=== PATIENT | female | born 1950 | race Caucasian/White ===

== ENCOUNTER 2017-09-15 13:17 | Inpatient (IN) | payer MEDICARE, MEDICAID ==
--- NOTE | 2017-09-15 13:34 | ED Physician Chart ---
ED Chief Complaint/HPI - Patient Information Date Seen:: 09/15/17 Time Seen:: 13:25 Chief Complaint:: aggressive behavior History of Present Illness:: Patient was apparently yelling and screaming at her halfway facility. Allergies:: Allergies Allergy/AdvReac Type Severity Reaction Status Date / Time No Known Allergies Allergy Verified 07/16/16 19:21 Historian:: Patient, EMS Review:: Transfer documents Reviewed ED Review of Systems - Review of Systems General/Constitutional: No fever, No chills, No weight loss, No weakness, No diaphoresis, No edema, No loss of appetite Skin: No skin lesions, No rash, No bruising Head: No headache, No light-headedness Eyes: No loss of vision, No pain, No diplopia ENT: No earache, No nasal drainage, No sore throat, No tinnitus Neck: No neck pain, No swelling, No thyromegaly, No stiffness, No mass noted Cardio Vascular: No chest pain, No palpitations, No PND, No orthopnea, No edema Pulmonary: No SOB, No cough, No sputum, No wheezing GI: No nausea, No vomiting, No diarrhea, No pain, No melena, No hematochezia, No constipation, No hematemesis G/U: No dysuria, No frequency, No hematuria Musculoskeletal: No bone or joint pain, No back pain, No muscle pain Endocrine: No polyuria, No polydipsia Psychiatric: Prior psych history Hematopoietic: No bruising, No lymphadenopathy Allergic/Immuno: No urticaria, No angioedema Neurological: No syncope, No focal symptoms, No weakness, No paresthesia, No headache, No seizure, No dizziness, No confusion, No vertigo ED Past Medical History - Past Medical History Past Medical History: HTN, CAD, Asthma/COPD, Other (status post urinary tract infection) Family History: Other (not available) Social History: Smoker, Care Facility Surgical History: other (Bypass) Psychiatricy History: Schizophrenia Medication: Reviewed Family Medical History - Family Member Mother History Unknown: Yes Ethnicity: Non- Living Status: Hx Family Cancer: No Hx Family Coronary Artery Disease: No Hx Family Congestive Heart Failure: No Hx Family Hypertension: No Hx Family Stroke: No Hx Family Diabetes: No Hx Family Seizures: No Hx Family Dementia: No Hx Family AIDS: No Hx Family HIV: No Hx Family COPD: No Hx Family Hepatitis: No Hx Family Psychiatric Problems: No Hx Family Tuberculosis: No ED Physical Exam - Physical Examination General/Constitutional: Awake, Well-developed, well-nourished, Alert, No distress Other Gen/Cons comments:: Patient declines to provide a history that allows a basic physical examination Head: Atraumatic Eyes: Lids, conjuctiva normal Skin: Nl inspection ENMT: External ears, nose nl Other ENMT comments:: Edentulous Neck: No nuchal rigidity Respiratory: Nl effort/Exclusion Other Respiratory comments:: diffuse inspiratory and expiratory wheezing and harsh breath sounds Cardio Vascular: RRR, No murmur, gallop, rubs Other Cardio Vascular comments:: 2/6 systolic murmur GI: No tenderness/rebounding/guarding Extremities: Normal digits & nails Neuro/Psych: No focal deficits Misc: Normal back ED Assessment - Assessment General Assessment: Patient refuses laboratory tests and EKG. Auscultation of the chest revealed diffuse harsh breath sounds and inspiratory and expiratory wheezing so the patient definitely has COPD and admits to being a current smoker. Patient does not appear acutely short of breath and her pulse ox is 98% so I will give her a medical clearance to go to [facility]. ED Septic Shock - . Is Septic Shock (SBP<90, OR Lactate>4 mmol\L) present?: No ED Reassessment (Disposition) - Reassessment Reassessment Condition:: Unchanged - Diagnosis Diagnosis:: Aggressive behavior; schizophrenia; nicotine abuse; COPD - Patient Disposition Admitted to:: [facility] Admitting Medical Physician:: Kofi Ryan Admitting Psych Physician:: Brenda Mejía
[2017-09-15 16:49] VITALS: BP 148/99
[2017-09-15] MEDS ORDERED: Maalox 30 mL Cup PO PRN (16:53)
[2017-09-15] MEDS ORDERED: Magnesium Hydroxide (MOM) 30 mL UDC PO PRN (16:53)
--- NOTE | 2017-09-16 02:55 | Psychosocial Evaluation ---
DATE OF SERVICE: 09/15/2017 IDENTIFYING DATA: The patient is a 67-year-old woman, resident of [facility]. Information is obtained by directly interviewing the patient as well as reviewing the admission papers. JUSTIFICATION FOR HOSPITALIZATION: The patient is admitted here because of her acute agitation. CHIEF COMPLAINT: "I do not want to be bothered." HISTORY OF PRESENT ILLNESS: This is the second psychiatric hospitalization for this patient, who is reported to have been here in the past in 2017. The patient is being followed up by Dr. Mejía on an outpatient basis. On the day of the hospitalization, the patient is reported to have been very aggressive and combative towards the staff and the patient could not be redirected. The patient was treated in the past for depression and the patient has been getting easily frustrated. Sleep is noted to be poor. Appetite is noted to be fair. MEDICAL HISTORY: Physical examination is requested to be done by Dr. Ryan. SUBSTANCE ABUSE HISTORY: None. SOCIAL HISTORY: The patient is a resident of [facility]. MENTAL STATUS EXAMINATION: The patient is a 67-year-old woman, looking her stated age, superficially cooperative. Eye contact is poor. Mood is noted to be irritable. Affect is constricted. Insight and judgment at this time are noted to be impaired. Impulse control is noted to be poor. The patient is screaming and yelling and stating that she does not want to be bothered. Review of the chart indicated that the patient has been treated for depression in the past, but at this time, the patient has been on benztropine and olanzapine. The olanzapine, she has been getting at 2.5 mg and benztropine 0.5 mg on a p.r.n. basis and the patient at this time also has been getting Haldol Decanoate on a monthly basis. At this time, the patient has been getting easily upset and has been not able to contract for safety. I am not able to get much information from this patient at this time. Mental status examination is significant for the patient being very irritable, angry and paranoid. The patient's coping skills are noted to be extremely poor. 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 The patient's insight and judgment are noted to be very much impaired. The patient is getting easily upset. Coping skills are noted to be very poor. DIAGNOSTIC IMPRESSION: AXIS I: Psychosis, not otherwise specified. AXIS II: None. AXIS III: As per Dr. Ryan. IMMEDIATE TREATMENT PLAN: The patient is going to be observed on the inpatient unit, provided with supportive psychotherapy. Once stabilized, the patient is going to be discharged to be followed up at [facility] by Dr. Mejía. ESTIMATED LENGTH OF STAY: 5-7 days. DISCHARGE CRITERIA: When the patient is no longer a threat to self or others and be able to cope up with the stress. JOB# [id number]
--- NOTE | 2017-09-16 08:19 | Diagnostic Imaging Report ---
CHEST X-RAY: AP view INDICATION: pain COMPARISON: 07/16/2016 FINDINGS: Mild chronic lung changes are noted.: There is no focal consolidation or pleural effusions The heart is normal in size. Postsurgical changes of the lower thoracic spine are partially visualized. Mildly tortuous aorta is noted. IMPRESSION: Mild chronic interstitial lung changes. No focal consolidation identified.
[2017-09-16] MEDS: Multivitamin Tab PO SCH (08:57)
[2017-09-16] MEDS: Guaifenesin DM 10 ML UDC PO PRN (15:27)
[2017-09-16] MEDS: Pantoprazole 40 mg EC Tab PO SCH (16:35)
[2017-09-16] MEDS ORDERED: Albuterol/Ipratropium Neb 3 ML AERS HHN SCH (19:00)
--- NOTE | 2017-09-16 22:56 | Consultation ---
DATE OF CONSULTATION: 09/16/2017 REFERRING PHYSICIAN: Autumn Nichols MD TYPE OF CONSULTATION: Psychology. HISTORY OF PRESENT ILLNESS: The patient is a 67-year-old female. The patient is a resident of [facility]. The following is by review of the medical record and by the patient's self-report. The patient is being admitted due to acute agitation. According to the staff at the patient's facility, the patient had been very aggressive and combative towards staff and unable to be redirected. Upon interview, the patient is easily frustrated and stating that she does not want to be bothered. The patient denied any suicidal ideation, plan or intention. PAST MEDICAL HISTORY: Please see history and physical by Dr. Ryan. PAST PSYCHIATRIC HISTORY: Records unavailable at the time of the clinical interview. SUBSTANCE ABUSE HISTORY: The patient denied any history. PSYCHOSOCIAL HISTORY: The patient is a resident of [facility]. The patient did not answer questions about occupational or educational history or confucianist affiliation. The patient denied any history of physical or sexual abuse. The patient states no current legal problems. MENTAL STATUS EXAMINATION: The patient appears to be her stated age. The patient's attitude is superficially cooperative. Eye contact is poor. Speech is spontaneous. Mood is irritable. Affect is constricted. Thought process shows to be confused. The patient denied any suicidal ideation, plan or intention. The patient denies any auditory or visual hallucinations. However, there is some evidence of paranoid ideation. The patient's behavior has been difficult to contain on the unit. During the clinical interview, the patient would have yelling episodes. The patient did not participate in the memory assessment. Impulse control is inadequate. Concentration is poor. Sensorium is alert and oriented to self and place. The patient did not participate in the interpretation of proverbs. Insight is poor. Judgment is poor. DIAGNOSTIC IMPRESSION: AXIS I: Psychosis, not otherwise specified. AXIS II: Deferred. AXIS III: Per Dr. Ryan. TREATMENT PLAN: The patient has been seen by Dr. Nichols for psychiatric evaluation and for the management of the patient's psychotropic medications. We will provide supportive psychotherapy to include reality orientation, reality differentiation and reality integration. We will provide de-escalation as well as limit setting. We will encourage the patient to be able to demonstrate emotional and self-regulation prior to discharge. We will provide coping strategies for phase of life issues. We will continue to evaluate the patient for possible depression since this is part of her medical history. Currently, the patient is denying that she is depressed. The patient is unable to verbally contract for safety. Therefore, we will provide a daily opportunity for the patient to do so. Thank you, Dr. Nichols for this consult and the opportunity to participate in this patient's care. JOB# [id number] MTDD
--- NOTE | 2017-09-17 02:31 | Consultation ---
DATE OF CONSULTATION: 09/15/2017 INTERNAL MEDICINE CONSULTATION HISTORY OF PRESENT ILLNESS: The patient is a patient of mine with past medical history significant for spinal stenosis, coronary artery disease, COPD, peptic ulcer disease, gastritis, arthritis, osteoporosis, and Parkinson's disease. SOCIAL HISTORY: Prior history of smoking. No history of drug or alcohol abuse. FAMILY HISTORY: Not available. REVIEW OF SYSTEMS: The patient has chronic cough, occasional wheezing, no nausea, no vomiting, occasional abdominal pain. Extensive arthritic pain, especially lower extremity pain. The patient has resting tremors on exam. OBSTETRIC HISTORY: P0 +0, menses postmenopausal. PHYSICAL EXAMINATION: GENERAL: Average female, in no obvious respiratory distress. VITAL SIGNS: Include a blood pressure of , heart rate , respiration rate of 18. SKIN: Show no obvious cellulitis. HEENT: Normal conjunctivae. NECK: Supple. LUNGS: Show occasional rhonchi, occasional crepitation, no bronchial breathing. HEART: First and second heart sounds normal. No gallop. Systolic present ABDOMEN: Soft, minimal epigastric tenderness. Bowel sounds are good. EXTREMITIES: Show arthritis. NEUROLOGIC: The patient has resting tremor. MEDICAL DIAGNOSES: As I dictated above spinal stenosis, coronary artery disease, chronic obstructive pulmonary disease, peptic ulcer disease, gastritis, arthritis, osteoporosis and Parkinson's disease. Medicines are as per MAY. JOB# [id number]
--- NOTE | 2017-09-17 04:37 | Progress Notes ---
DATE: 09/16/2017 PSYCHIATRIC PROGRESS NOTE SUBJECTIVE: Staff was spoken to. The patient is interviewed. Mood is noted to be irritable. Affect is constricted. Insight and judgment at this time are noted to be be still impaired. Impulse control seems to be poor. The patient is isolative and withdrawn. The patient has ____ hallucinations. The patient is currently on Zyprexa 2.5 mg at bedtime and has been able to tolerate the medication. ASSESSMENT: The patient is still psychotic ____ JOB# [id number]
[2017-09-17] MEDS: Pantoprazole 40 mg EC Tab PO SCH (06:35)
[2017-09-17] MEDS: Albuterol/Ipratropium Neb 3 ML AERS HHN PRN ×2 (06:45→10:24)
[2017-09-17] MEDS: Multivitamin Tab PO SCH (08:57)
[2017-09-17] MEDS: Guaifenesin DM 10 ML UDC PO PRN ×2 (08:57→15:11)
--- NOTE | 2017-09-17 10:05 | Progress Notes ---
DATE: 09/17/2017 SUBJECTIVE: Staff was spoken to. The patient is interviewed. Mood is noted to be anxious. The patient is pacing on the unit. The patient is stating that she has been having depression towards the end of the day and the patient has Parkinson's disease more than anything else and the patient also has been displaying signs of tardive dyskinesia in the oral region. The patient is stating that towards the end of the day, she has been feeling depressed. Paranoia is noted, but the patient is stating ____. The patient is also mentioning that she has been getting the Haldol Decanoate on a monthly basis. The [facility] is going to be [facility], then the last dose of the medication was given. ASSESSMENT: The patient is still paranoid. PLAN: To continue the patient with the supportive therapy and encouraged the patient to oblige the concerns and not to act out. JOB# [id number]
[2017-09-17] MEDS ORDERED: Albuterol/Ipratropium Neb 3 ML AERS HHN PRN (10:49)
[2017-09-17] MEDS: Albuterol/Ipratropium Neb 3 ML AERS HHN SCH ×2 (14:28→19:40)
--- NOTE | 2017-09-18 05:29 | Progress Notes ---
DATE: 09/17/2017 INTERNAL MEDICINE CONSULTATION FOLLOWUP SUBJECTIVE: The patient is seen in Geropsych Unit. No new symptoms. The patient continues to have a chronic pain. Resting tremors, occasional shortness of breath, occasional cough, no nausea, no vomiting. OBJECTIVE: VITAL SIGNS: Stable. LUNGS: Show occasional rhonchi, occasional crepitation, no bronchial breathing. HEART: First and second heart sounds are present. ABDOMEN: Soft. Bowel sounds are good. EXTREMITIES: Show arthritis. ASSESSMENT: The patient has resting tremors. MEDICAL DIAGNOSES: Remain the same; spinal stenosis, Parkinson disease, Chronic obstructive pulmonary disease, coronary artery disease, peptic ulcer disease, arthritis, osteoporosis. Continue the current treatment. Psych consultation reviewed. JOB# [id number]
[2017-09-18] MEDS: Pantoprazole 40 mg EC Tab PO SCH (06:30)
[2017-09-18] MEDS: Albuterol/Ipratropium Neb 3 ML AERS HHN SCH ×4 (06:30→19:37)
[2017-09-18] MEDS: Multivitamin Tab PO SCH (08:06)
[2017-09-18] MEDS: Guaifenesin DM 10 ML UDC PO PRN ×2 (11:30→17:13)
--- NOTE | 2017-09-18 19:25 | Progress Notes ---
DATE: 09/18/2017 SUBJECTIVE: Staff was spoken to. The patient is interviewed. Mood is noted to be irritable. Affect is constricted. The patient is very demanding. The patient is stating that she needs Prozac. The patient is currently on olanzapine 2.5 mg at bedtime. The patient is also reported to have been getting the Haldol on a monthly basis. The patient's insight and judgment at this time are noted to be still impaired. No side effects to the medications are noted. The patient has been stating that she is doing okay in the morning, but towards the evening she has been getting the depression. Coping skills are noted to be poor at this time. Sleep and appetite are noted to be improving. No side effects to the medications are noted. ASSESSMENT: The patient is still impulsive and depressed and psychotic. PLAN: To continue the patient with the supportive therapy. I encouraged the patient to verbalize the concerns rather than to act out. [facility]# [id number]
--- NOTE | 2017-09-18 23:55 | Progress Notes ---
DATE: 09/18/2017 INTERNAL MEDICINE FOLLOWUP CONSULTATION CHIEF COMPLAINT: Chronic pain, shortness of breath, minimal occasional cough, no nausea, no vomiting. The patient continues to be very anxious. PHYSICAL EXAMINATION: GENERAL: Average female in obvious respiratory distress. VITAL SIGNS: Blood pressure of 110/70, heart rate 83, respiration rate 18. SKIN: Show no cellulitis. HEENT: Normal conjunctivae. NECK: Supple. LUNGS: Show occasional rhonchi, occasional crepitation, no bronchial breathing. HEART: First and second present. ABDOMEN: Soft, minimal epigastric tenderness. Bowel sounds are good. EXTREMITIES: Show arthritis. NEUROLOGIC: The patient has Parkinson disease, advanced psychosis. MEDICAL DIAGNOSES: Remain the same; spinal stenosis, Parkinson disease, chronic obstructive pulmonary disease, coronary artery disease, peptic ulcer disease, gastritis, arthritis, osteoporosis. TREATMENT PLAN: Continue current medicines as per MAY. Continue her psych medicines. JOB# [id number]
[2017-09-19] MEDS: Albuterol/Ipratropium Neb 3 ML AERS HHN SCH ×4 (06:29→18:56)
[2017-09-19] MEDS: Pantoprazole 40 mg EC Tab PO SCH (06:42)
[2017-09-19] MEDS: Guaifenesin DM 10 ML UDC PO PRN (08:41)
[2017-09-19] MEDS: Multivitamin Tab PO SCH (08:41)
--- NOTE | 2017-09-20 00:09 | Progress Notes ---
DATE: 09/19/2017 INTERNAL MEDICINE FOLLOWUP CONSULTATION The patient is a 67-year-old female seen at [facility]. Chronic pain syndrome, no chest pain, occasional cough, no wheezing, chronic shortness of breath, no nausea, no vomiting, no abdominal pain. PHYSICAL EXAMINATION: VITAL SIGNS: Stable. LUNGS: Show occasional rhonchi, occasional crepitation, no bronchial breathing. HEART: First and second heart sounds normal. No gallop. S1, S2 are present. ABDOMEN: Soft, minimal epigastric tenderness. Bowel sounds are good. EXTREMITIES: Show arthritis. NEUROLOGIC: The patient has resting tremor and akinesia and rigidity. MEDICAL DIAGNOSES: Include Parkinson's disease, spinal stenosis, chronic obstructive pulmonary disease, coronary artery disease, peptic ulcer disease, , arthritis, osteoporosis. TREATMENT PLAN: Continue current medical management. Psych consult reviewed. JOB# [id number]
[2017-09-20] MEDS: Pantoprazole 40 mg EC Tab PO SCH (06:31)
[2017-09-20] MEDS: Albuterol/Ipratropium Neb 3 ML AERS HHN SCH ×4 (07:21→19:39)
[2017-09-20] MEDS: Multivitamin Tab PO SCH (08:18)
--- NOTE | 2017-09-21 02:17 | Progress Notes ---
DATE: 09/20/2017 INTERNAL MEDICINE CONSULTATION FOLLOWUP The patient is a 67-year-old female seen at [facility]. No new symptoms, chronic pain syndrome. OBJECTIVE: VITAL SIGNS: Stable. LUNGS: Show bilateral rhonchi, has crepitation, no bronchial breathing. HEART: First and second present. ABDOMEN: Soft, minimal epigastric tenderness. Bowel sounds present and good. EXTREMITIES: Show arthritis. NEUROLOGIC: The patient has Parkinson disease. MEDICAL DIAGNOSES: Remain the same; spinal stenosis, Parkinson disease, chronic obstructive pulmonary disease, coronary artery disease, peptic ulcer disease, arthritis, osteoporosis. PLAN: Continue medical management. Psych consult reviewed. Thank you very much. JOB# [id number]
[2017-09-21] MEDS: Pantoprazole 40 mg EC Tab PO SCH (06:36)
[2017-09-21] MEDS: Albuterol/Ipratropium Neb 3 ML AERS HHN SCH ×4 (07:12→20:41)
[2017-09-21] MEDS: Multivitamin Tab PO SCH (09:20)
[2017-09-21] MEDS: Guaifenesin DM 10 ML UDC PO PRN ×2 (11:45→19:20)
--- NOTE | 2017-09-21 23:36 | Progress Notes ---
DATE: 09/21/2017 SUBJECTIVE: Staff was spoken to. The patient is interviewed. Mood is noted to be irritable. Affect is constricted. The patient's coping skills are noted to be poor. The patient is stating that she ____ yesterday. ASSESSMENT: The patient is still paranoid. PLAN: Continue the patient with the supportive therapy and follow up. JOB# [id number]
--- NOTE | 2017-09-22 02:16 | Progress Notes ---
DATE: 09/21/2017 SUBJECTIVE: The patient is a 67-year-old female, no new symptoms. No chest pain. Chronic pain syndrome, occasional cough, and occasional wheezing. No nausea, no vomiting, and no abdominal pain. OBJECTIVE: VITAL SIGNS: Stable. LUNGS: Show occasional rhonchi and occasional crepitation, no bronchial breathing. HEART: First and second present. ABDOMEN: Soft, minimal epigastric tenderness. Bowel sounds are good. EXTREMITIES: Show arthritis. NEUROLOGIC: The patient has no focal motor deficit. ADMITTING DIAGNOSIS: Include: 1. Parkinson's disease. 2. Chronic obstructive pulmonary disease. 3. Coronary artery disease. 4. Spinal stenosis. 5. Peptic ulcer disease. 6. Gastritis. 7. Arthritis. 8. Osteoporosis. TREATMENT PLAN: Continue current medical management. Psych consult reviewed. JOB# [id number]
[2017-09-22] MEDS: Albuterol/Ipratropium Neb 3 ML AERS HHN SCH ×4 (07:10→18:59)
[2017-09-22] MEDS: Multivitamin Tab PO SCH (08:36)
[2017-09-22] MEDS: Pantoprazole 40 mg EC Tab PO SCH (08:43)
--- NOTE | 2017-09-22 19:18 | Progress Notes ---
DATE: 09/22/2017 SUBJECTIVE: Staff was spoken to. The patient is interviewed. Mood is noted to be anxious. The patient's coping skills are noted to be improving at this time. The patient has been given a dose of Haldol Decanoate. The patient is only on 2.5 mg of the Zyprexa and we have been titrating the patient on the Zyprexa down to 2.5 mg, possibly when she is going to be out of the hospital and is at [facility], possibly that medication is going to be tapered off and the patient has to be on 2 antipsychotic medications because of the continuation of the same treatment and we are trying to taper the medication down. The patient is going to be discharged back to [facility] for followup by Dr. Mejía. JOB# [id number]
--- NOTE | 2017-09-22 22:19 | Progress Notes ---
DATE: 09/22/2017 INTERNAL MEDICINE CONSULTATION FOLLOWUP SUBJECTIVE: A 67-year-old female. No chest pain, no shortness of breath, occasional cough, no nausea, no vomiting, chronic pain syndrome. OBJECTIVE: VITAL SIGNS: Stable. LUNGS: Shows occasional rhonchi, occasional crepitation, no bronchial breathing. HEART: First and second present. ABDOMEN: Soft, minimal epigastric tenderness. Bowel sounds are present and good. EXTREMITIES: Show arthritis. NEUROLOGIC: The patient has no focal motor deficits. MEDICAL DIAGNOSES: Include Parkinson's disease, spinal stenosis, chronic obstructive pulmonary disease, coronary artery disease, peptic ulcer disease, gastritis, arthritis, osteoporosis. TREATMENT PLAN: Continue current medical management. Psych consult reviewed. [facility]# [id number]
== END 2017-09-22 20:25 | DRG 885 ==
LOC: ER 13:17 → GERO 15:04 → UNDOADMIN 15:04
DX: F23 Brief psychotic disorder (principal); M48.00 Spinal stenosis, site unspecified; J44.9 Chronic obstructive pulmonary disease, unspecified; G20 Parkinson's disease; M19.90 Unspecified osteoarthritis, unspecified site; M81.0 Age-related osteoporosis without current pathological fracture; K29.70 Gastritis, unspecified, without bleeding; I10 Essential (primary) hypertension; I25.10 Atherosclerotic heart disease of native coronary artery without angina pectoris; F17.210 Nicotine dependence, cigarettes, uncomplicated; K27.9 Peptic ulcer, site unspecified, unspecified as acute or chronic, without hemorrhage or perforation; G89.4 Chronic pain syndrome; Z95.1 Presence of aortocoronary bypass graft
CPT/HCPCS: 71045-TC; 94640; 94760; J1631; Z7610

== ENCOUNTER 2018-04-10 18:28 | Inpatient (IN) | payer MEDICARE, MEDICAID ==
--- NOTE | 2018-04-10 19:21 | ED Physician Chart ---
ED Chief Complaint/HPI - Patient Information Date Seen:: 04/10/18 Time Seen:: 19:16 Chief Complaint:: GEROPSYCH EVALUATION History of Present Illness:: 67 YR OLD FEMALE WITH MULTIPLE MEDICAL PROBLEMS PANCREATITIS DEPRESSION BIPOLAR DISORDER HYPERTENSION ANXIETY FOR GEROPSYCH EVALUATION Allergies:: Allergies Allergy/AdvReac Type Severity Reaction Status Date / Time No Known Allergies Allergy Verified 04/10/18 18:40 Vitals:: Vital Signs - 8 hr 04/10/18 18:41 Temp 100.8 F HR 90 RR 18 BP 139/87 O2 Sat % 95 <Gibson Rose - Last Filed: 04/10/18 19:22> - Patient Information Allergies:: Allergies Allergy/AdvReac Type Severity Reaction Status Date / Time No Known Allergies Allergy Verified 04/10/18 18:40 Vitals:: Vital Signs - 8 hr 04/10/18 18:41 Temp 100.8 F HR 90 RR 18 BP 139/87 O2 Sat % 95 <Fazal Lutz - Last Filed: 04/10/18 20:40> ED Review of Systems - Review of Systems General/Constitutional: No fever Skin: No skin lesions, No rash, No bruising Head: No headache, No light-headedness Eyes: No loss of vision, No pain, No diplopia ENT: No earache, No nasal drainage, No sore throat, No tinnitus Neck: No neck pain, No swelling, No thyromegaly, No stiffness, No mass noted Cardio Vascular: No chest pain, No palpitations, No PND, No orthopnea, No edema Pulmonary: Cough GI: No nausea, No vomiting, No diarrhea, No pain, No melena, No hematochezia, No constipation, No hematemesis G/U: No dysuria, No frequency, No hematuria Musculoskeletal: No bone or joint pain, No back pain, No muscle pain Endocrine: No polyuria, No polydipsia Psychiatric: Anxiety Hematopoietic: No bruising, No lymphadenopathy Allergic/Immuno: No urticaria, No angioedema Neurological: No syncope, No focal symptoms, No weakness, No paresthesia, No headache, No seizure, No dizziness, No confusion, No vertigo <Gibson Rose - Last Filed: 04/10/18 19:22> ED Past Medical History - Past Medical History Past Medical History: Other (PANCREATITIS DEPRESSION BIPOLAR DISORDER HTN ANXIETY) <Gibson Rose - Last Filed: 04/10/18 19:22> Family Medical History - Family Member Mother History Unknown: Yes Ethnicity: Non- Living Status: Hx Family Cancer: No Hx Family Coronary Artery Disease: No Hx Family Congestive Heart Failure: No Hx Family Hypertension: No Hx Family Stroke: No Hx Family Diabetes: No Hx Family Seizures: No Hx Family Dementia: No Hx Family AIDS: No Hx Family HIV: No Hx Family COPD: No Hx Family Hepatitis: No Hx Family Psychiatric Problems: No Hx Family Tuberculosis: No <Gibson Rose Last Filed: 04/10/18 19:22> ED Physical Exam - Physical Examination General/Constitutional: Awake Head: Atraumatic Skin: Nl inspection ENMT: External ears, nose nl Neck: Nontender Respiratory: Nl effort/Exclusion Cardio Vascular: RRR GI: No tenderness/rebounding/guarding : No CVA tenderness Extremities: No tenderness or effusion Neuro/Psych: Alert/oriented <Gibson Rose Filed: 04/10/18 19:22> ED Labs/Radiology/EKG Results - Lab Results Results: Laboratory Tests 04/10/18 04/10/18 04/10/18 19:30 19:30 19:30 WBC RBC Hgb Hct MCV MCH MCHC Differential RDW Plt Count MPV Neutrophils % Lymphocytes % Monocytes % Eosinophils % Basophils % PT 9.7 INR 0.93 PTT (Actin FS) 25.9 L Sodium 134 L Potassium 3.9 Chloride 100 Carbon Dioxide 27.8 Anion Gap 10.1 BUN 21 Creatinine 0.7 Est GFR ( Amer) > 60.0 Est GFR (Non-Af Amer) > 60.0 BUN/Creatinine Ratio 30.0 Glucose 164 H Calcium 9.4 Total Bilirubin 0.2 L AST 13 ALT 9 Alkaline Phosphatase 73 Troponin I 0.02 Total Protein 6.8 Albumin 3.8 Globulin 3.0 Albumin/Globulin Ratio 1.3 04/10/18 19:30 WBC 9.0 RBC 4.71 Hgb 10.6 L Hct 33.4 L MCV 70.9 L MCH 22.6 L MCHC Differential 31.8 RDW 17.9 Plt Count 364 MPV 7.4 Neutrophils % 76.0 Lymphocytes % 13.7 L Monocytes % 6.6 Eosinophils % 3.2 Basophils % 0.5 PT INR PTT (Actin FS) Sodium Potassium Chloride Carbon Dioxide Anion Gap BUN Creatinine Est GFR ( Amer) Est GFR (Non-Af Amer) BUN/Creatinine Ratio Glucose Calcium Total Bilirubin AST ALT Alkaline Phosphatase Troponin I Total Protein Albumin Globulin Albumin/Globulin Ratio <Fazal Lutz - Last Filed: 04/10/18 20:40> ED Assessment - Assessment General Assessment: AGITATION GEROPSYCH EVAL <Gibson Rose - Last Filed: 04/10/18 19:22> ED Septic Shock - . Is Septic Shock (SBP<90, OR Lactate>4 mmol\L) present?: No - <6hrs of presentation: Vital Signs: Vital Signs - 8 hr 04/10/18 18:41 Temp 100.8 F HR 90 RR 18 BP 139/87 O2 Sat % 95 <Gibson Rose - Last Filed: 04/10/18 19:22> - <6hrs of presentation: Vital Signs: Vital Signs - 8 hr 04/10/18 18:41 Temp 100.8 F HR 90 RR 18 BP 139/87 O2 Sat % 95 <Fazal Lutz - Last Filed: 04/10/18 20:40> ED Reassessment (Disposition) - Reassessment Reassessment:: AGITATION GEROPSYCH EVAL - Diagnosis Diagnosis:: AGITATION GEROPSYCH EVAL - Patient Disposition Discharge/Transfer:: Acute Care w/in this hosp Admitted to:: Med/Surg Condition at Disposition:: Stable <Gibson Rose - Last Filed: 04/10/18 19:22> - Reassessment Reassessment Condition:: Improved - Aftercare/Follow up Instructions Notes:: COPD COUGH BRONCHITIS REFUSED BREATHING TX COUGH MEDICINE WITH CODEINE GIVEN AND AZITHROMYCIN ONE GM PO GIVEN. CXR NO PNEUMONIA EKG SHOWED BBB O2 SAT 95 ON ROOM AIR PT APPEARS STABLE FOR TRANSFER <aFzal Lutz - Last Filed: 04/10/18 20:40>
[2018-04-10 19:44] LABS: % BASOPHILS 0.5 % (0.0-2.0); EOSINOPHILE ABSOLUTE 0.3 Th/cmm (0.1-0.4); RED CELL DISTRIBUTION WIDTH 17.9 % (11.5-20.0)
[2018-04-10 19:49] LABS: % EOSINOPHILS 3.2 % (0.0-5.0); % LYMPHOCYTES 13.7 % (20.0-50.0); % MONOCYTES 6.6 % (2.0-10.0); HEMATOCRIT 33.4 % (41.0-60); HEMOGLOBIN 10.6 gm/dL (12-16); LYMPHOCYTE ABSOLUTE 1.2 Th/cmm (1.5-3.0); MEAN CELL VOLUME 70.9 fl (81-100); MEAN CORPUSCULAR HEMOGLOBIN 22.6 pg (27.0-31.0); MEAN CORPUSCULAR HGB CONC 31.8 pg (28.0-36.0); MEAN PLATELET VOLUME 7.4 fl; MONOCYTE ABSOLUTE 0.6 Th/cmm (0.3-1.0); NEUTROPHILE ABSOLUTE 6.9 Th/cmm (1.8-8.0); PLATELET COUNT 364 Th/cmm (150-400); RED BLOOD COUNT 4.71 Mil/cmm (3.80-5.20)
[2018-04-10 19:57] LABS: ALB/GLOB RATIO 1.3 (1.0-1.8); ALBUMIN 3.8 gm/dL (3.7-5.3); ALKALINE PHOSPHATASE 73 U/L (34-104); ANION GAP 10.1 (7.0-16.0); BILIRUBIN,TOTAL 0.2 mg/dL (0.3-1.0); BUN - UREA NITROGEN 21 mg/dL (7-25); CALCIUM SERUM 9.4 mg/dL (8.6-10.3); CARBON DIOXIDE 27.8 mEq/L (21.0-31.0); CHLORIDE 100 mEq/L (98-107); CREATININE - SERUM 0.7 mg/dL (0.6-1.2); GFR AFRICAN-AMERICAN > 60.0 ml/min (>90); GFR NON AFRICAN-AMERICAN > 60.0 ml/min; GLUCOSE 164 mg/dL (70-105); POTASSIUM SERUM 3.9 mEq/L (3.5-5.1); SGOT 13 U/L (13-39); SGPT/ALT 9 U/L (7-52); SODIUM SERUM 134 mEq/L (136-145); TOTAL PROTEIN,SERUM 6.8 gm/dL (6.0-8.3)
[2018-04-10 19:58] LABS: INR 0.93 (0.5-1.4); PROTHROMBIN TIME (TEST) 9.7 SECONDS (9.5-11.5)
[2018-04-10] MEDS ORDERED: Albuterol/Ipratropium Neb 3 ML AERS HHN ONE ×2 (19:59→20:00)
[2018-04-10] MEDS ORDERED: Dexamethasone Sodium Phos 4 mg/mL Vial INH STA (20:01)
[2018-04-10] MEDS ORDERED: Promethazine DM 6.25/15mg-5mL 5 ML SYR PO PRN (20:01)
[2018-04-10] MEDS ORDERED: Codeine/Promethazine Susp 5 mL UDC PO STA (20:19)
[2018-04-10] MEDS ORDERED: Codeine/Promethazine Susp 5 mL UDC ONE (20:22)
[2018-04-10 21:40] VITALS: BP 142/85
[2018-04-10] MEDS ORDERED: Magnesium Hydroxide (MOM) 30 mL UDC PO PRN (21:53)
[2018-04-10] MEDS ORDERED: Maalox 30 mL Cup PO PRN (21:53)
[2018-04-10 23:08] LABS: CHOLESTEROL 140 mg/dL (<200); HDL -HIGH DENSITY LIPOPROTEIN 37 mg/dL (23-92); TRIGLYCERIDES 117 mg/dL (<150)
[2018-04-11] MEDS ORDERED: Maalox 30 mL Cup PO PRN (00:16)
[2018-04-11] MEDS ORDERED: Magnesium Hydroxide (MOM) 30 mL UDC PO PRN (00:24)
[2018-04-11] MEDS: Pantoprazole 40 mg EC Tab PO SCH (06:42)
[2018-04-11] MEDS ORDERED: Pantoprazole 40 mg EC Tab PO SCH (07:30)
[2018-04-11] MEDS ORDERED: Non-Formulary Item 1 EA (Diclofenac Sodium [Voltaren] 100 GM) TP SCH ×2 (09:00)
[2018-04-11] MEDS ORDERED: Benztropine 1 MG TAB PO SCH (09:00)
[2018-04-11] MEDS ORDERED: Albuterol Sulfate ER 4 mg Tab PO SCH ×2 (09:00)
[2018-04-11] MEDS ORDERED: Aspirin 81mg Chewable Tab PO SCH (09:00)
--- NOTE | 2018-04-11 09:14 | Diagnostic Imaging Report ---
CHEST X-RAY: AP view INDICATION: Cough COMPARISON: 09/16/2017 FINDINGS: Slight accentuation of the interstitial lung markings are noted. No focal consolidation or effusion. Heart size normal. Mild tortuous ectatic aorta is noted. Postsurgical changes of the thoracolumbar spine are partially visualized. Degenerative changes of the spine and shoulders are noted. IMPRESSION: [id number] accentuation of the interstitial lung markings, no focal consolidation identified. Mildly tortuous, ectatic aorta. Postsurgical changes of the lower thoracic and visualized upper lumbar spine.
[2018-04-11] MEDS: Albuterol 2 mg/5 mL UDC PO SCH ×4 (10:31→20:55)
[2018-04-11] MEDS: Aspirin 81mg Chewable Tab PO SCH ×2 (10:31→11:30)
[2018-04-11] MEDS: Benztropine 1 MG TAB PO SCH ×2 (10:31→11:30)
[2018-04-12] MEDS: Pantoprazole 40 mg EC Tab PO SCH (06:43)
--- NOTE | 2018-04-12 08:58 | History and Physical ---
History of Present Illness - HPI Chief Complaint: Increased in agitation HPI: Patient was send to ER for evaluation due to increased in agitation. According to information patient was Aggressive, kicking and punching employes. Vital Signs: Last Vital Signs Temp 97.2 F 04/12/18 06:31 Pulse 74 04/12/18 06:31 Resp 20 04/12/18 06:31 BP 116/75 04/12/18 06:31 Pulse Ox 96 04/12/18 06:31 Past Medical History Cardiovascular: Report: CAD, HTN Pulmonary: Report: COPD SIDE BOSS: Report: Dementia GI: Report: Other (Pancreatitis) Psych: Report: Bipolar, Depression, Psychosis Musculoskeletal: Report: No Pertinent Hx Rheumatologic: Report: No pertinent Hx Infectious Disease: Report: No Pertinent Hx Renal/: Report: No Pertinent Hx Endocrine: Report: No Pertinent Hx Dermatology: Report: No Pertinent Hx - Past Surgical History Past Surgical History: No pertinent Hx Family Medical History - Family Member Mother History Unknown: Yes Ethnicity: Non- Living Status: Hx Family Cancer: No Hx Family Coronary Artery Disease: No Hx Family Congestive Heart Failure: No Hx Family Hypertension: No Hx Family Stroke: No Hx Family Diabetes: No Hx Family Seizures: No Hx Family Dementia: No Hx Family AIDS: No Hx Family HIV: No Hx Family COPD: No Hx Family Hepatitis: No Hx Family Psychiatric Problems: No Hx Family Tuberculosis: No Social History Smoke: No Alcohol: None Drugs: None Lives: [facility] Domestic Violence: Negative - Medications Home Medications: Home Medication Medication Instructions Recorded Type Haloperidol Decanoate [Haldol 50 mg IM [id number] 07/16/16 History Decanoate 50] Aspirin [Aspirin Chewable] 81 mg PO DAILY #0 ctb 07/29/16 Rx Cholecalciferol (Vit D3) [Vitamin 1,000 iu PO DAILY #0 tab 07/29/16 Rx D3] FLUoxetine HCL [Prozac*] 20 mg PO DAILY #0 cap 07/29/16 Rx OLANZapine [ZyPREXA] 5 mg PO QPM #0 tab 07/29/16 Rx OLANZapine [ZyPREXA] 2.5 mg PO QPM tab 09/22/17 Rx Pantoprazole [Protonix] 40 mg PO QDAC ect 09/22/17 Rx traZODone HCl [Desyrel*] 50 mg PO HS tab 09/22/17 Rx Albuterol Sulfate ER [Vospire ER*] 2 mg PO QID 04/10/18 History Benztropine [Cogentin*] 1 mg PO DAILY 04/10/18 History Carbidopa/Levodopa [Sinemet 25-100 1 tab PO TID 04/10/18 History mg Tablet] Carvedilol [Coreg] 3.125 mg PO BID 04/10/18 History Diclofenac Sodium [Voltaren] 100 gm TP BID 04/10/18 History Furosemide [Lasix] 20 mg PO DAILY 04/10/18 History Gabapentin [Neurontin*] 300 mg PO Q8H 04/10/18 History Lisinopril [Zestril*] 20 mg PO BID 04/10/18 History Oxybutynin Chloride [Ditropan*] 5 mg PO TID 04/10/18 History Sennosides A and B [Senna] 8.6 mg PO BID 04/10/18 History Simvastatin [Zocor] 40 mg PO HS 04/10/18 History - Allergies Allergies/Adverse Reactions: Allergies Allergy/AdvReac Type Severity Reaction Status Date / Time No Known Allergies Allergy Verified 04/10/18 18:40 Review of Systems - Review of Systems Constitutional: Report: No Significant Eyes: Report: No Significant ENT: Report: No Significant Respiratory: Report: No Significant Cardiovascular: Report: No Significant Gastrointestinal: Report: No Significant Genitourinary: Report: No Significant Musculoskeletal: Report: No Significant Skin: Report: No Significant Neurological: Report: Weakness, Other (Agitation) Physical Exam - Physical Exam HEENT: Report: Ears Nose Throat within normal limits Neck: Report: Within normal limits Cardiovascular Systems: Report: Regular, Rate and Rhythm Respiratory: Report: Breath Sounds are within normal limits Abdomen: Report: Non-tender to palpation Back: Report: Inspection of back is within normal limits. Extremities: Report: Non-tender to palpation. Skin: Report: Color of skin is within normal limits, Warm, Dry Neuro/Psych: Report: Disoriented to name time or place, Depressed affect - Lab Results All Lab Results last 24 hours: Microbiology 04/10/18 19:45 - Preliminary Blood NO GROWTH AFTER 24 HOURS 04/10/18 19:30 - Preliminary Blood NO GROWTH AFTER 24 HOURS - Assessment Assessment: Patient is awake, alert, confused, not oriented. Dx: Increased in agitation, Depression, Bipolar, COPD, HTN. - Plan Plan: Patient is under Psychiatric care, continue with SNF medications. Will continue to monitor.
[2018-04-12] MEDS: Albuterol 2 mg/5 mL UDC PO SCH ×4 (09:00→21:00)
[2018-04-12] MEDS: Aspirin 81mg Chewable Tab PO SCH (09:06)
[2018-04-12] MEDS: Benztropine 1 MG TAB PO SCH (09:06)
--- NOTE | 2018-04-12 21:14 | Psychiatric Evaluation ---
DATE OF SERVICE: PATIENT AGE: 68. SEX: Female. PHYSICIAN: Dr. Trinidad. CHIEF COMPLAINT: Agitation and irritability. HISTORY OF PRESENT ILLNESS: The patient was transferred to the hospital from [facility] because of agitation and also uncooperative with the staff. The patient also has been severely anxious and her anxiety level has been severe. Chart reviewed and the patient interviewed. The patient is extremely anxious. The patient also has been restless. The patient also has been upset with a program where she lives because of "did not give me enough or enough everything." The patient also is angry mood. She also has been talking and his thought processes are circumstantial and tangential. PAST PSYCHIATRIC HISTORY: The patient has history of bipolar disorder. PAST MEDICAL HISTORY: The patient has hypertension and also pancreatitis. SOCIAL HISTORY: The patient lives in [facility]. No known alcohol or drug use. ALLERGIES: No known allergies. MENTAL STATUS EXAMINATION: The patient appears his stated age. Anxious. Sad affect. In a depressed mood. Thought processes are circumstantial and tangential with occasional flight of ideas. The patient denies any auditory or visual hallucinations, but seems to be severely paranoid and delusional. She denies any thoughts of suicide or homicide. The patient is alert and oriented to time, place, person, and situation. Intact immediate, recent and remote memories. Fair insight. Poor judgment. Seems to be of average intelligence based on her verbal ability. ASSESSMENT: PRIMARY DIAGNOSIS: Bipolar disorder; manic episode, severe, with psychotic features. TREATMENT PLAN: We will monitor the patient's behavior and condition closely. We will restart psychotropic medications and will adjust her medications. ESTIMATED LENGTH OF STAY: 5-7 days. THE PATIENT'S STRENGTHS AND WEAKNESSES: The patient's strength is not clear at this time. Weakness is his poor judgment and ineffective coping. AFTER DISCHARGE PLAN: Outpatient treatment and followup will continue as an outpatient. [facility]# [id number]
--- NOTE | 2018-04-12 21:47 | Progress Notes ---
DATE: SUBJECTIVE: Chart reviewed and the patient interviewed. Also discussed the patient's condition with the staff and reviewed records and labs. The patient remains suspicious and she is still paranoid. The patient also still has severe mood swing and she is easily agitated. The patient also is impulsive and she wants her needs to be met immediately. She also is still anxious with mood swings. Otherwise, the patient is compliant with taking her medications with no side effects of medications. ASSESSMENT: The patient is still agitated and needs a lot of redirections. TREATMENT PLAN: Continue to monitor her behavior and her condition closely. Also yesterday, the patient was refusing Prozac, but she said that she will take it today. Also, we will continue to work on her mood and irritability and we will continue to follow up closely. JOB# [id number]
[2018-04-13] MEDS: Pantoprazole 40 mg EC Tab PO SCH (06:35)
[2018-04-13] MEDS: Albuterol 2 mg/5 mL UDC PO SCH ×4 (08:17→21:36)
[2018-04-13] MEDS: Benztropine 1 MG TAB PO SCH (08:21)
[2018-04-13] MEDS: Aspirin 81mg Chewable Tab PO SCH (08:21)
--- NOTE | 2018-04-13 08:57 | General Progress Note ---
Subjective - Review of Systems Service Date: 04/13/18 Subjective: Patient is confused. Objective - Results Result Diagrams: 04/10/18 19:04/10/18: Recent Labs: Laboratory Last Values WBC 9.0 Th/cmm (4.8-10.8) 04/10/18: RBC 4.71 Mil/cmm (3.80-5.20) 04/10/18: Hgb 10.6 gm/dL (12-16) L 04/10/18: Hct 33.4 % (41.0-60) L 04/10/18: MCV 70.9 fl (81-100) L 04/10/18: MCH 22.6 pg (27.0-31.0) L 04/10/18 MCHC Differential 31.8 pg (28.0-36.0) 04/10/18 RDW 17.9 % (11.5-20.0) 04/10/18 Plt Count 364 Th/cmm (150-400) 04/10/18: MPV 7.4 fl 04/10/18: Neutrophils % 76.0 % (40.0-80.0) 04/10/18: Lymphocytes % 13.7 % (20.0-50.0) L 04/10/18: Monocytes % 6.6 % (2.0-10.0) 04/10/18 Eosinophils % 3.2 % (0.0-5.0) 04/10/18 Basophils % 0.5 % (0.0-2.0) 04/10/18: PT 9.7 SECONDS (9.5-11.5) 04/10/18: INR 0.93 (0.5-1.4) 04/10/18: PTT (Actin FS) 25.9 SECONDS (26.0-38.0) L 04/10/18: Sodium 134 mEq/L (136-145) L 04/10/18: Potassium 3.9 mEq/L (3.5-5.1) 04/10/18: Chloride 100 mEq/L (98-107) 01/21/19 19:30 Carbon Dioxide 27.8 mEq/L (21.0-31.0) 04/10/18 19:30 Anion Gap 10.1 (7.0-16.0) 04/10/18 19:30 BUN 21 mg/dL (7-25) 04/10/18 19:30 Creatinine 0.7 mg/dL (0.6-1.2) 04/10/18 19:30 Est GFR ( Amer) > 60.0 ml/min (>90) 04/10/18 19:30 Est GFR (Non-Af Amer) > 60.0 ml/min 04/10/18 19: BUN/Creatinine Ratio 30.0 04/10/18: Glucose 164 mg/dL (70-105) H 04/10/18: Calcium 9.4 mg/dL (8.6-10.3) 04/10/18:30 Total Bilirubin 0.2 mg/dL (0.3-1.0) L 04/10/18:30 AST 13 U/L (13-39) 04/10/18:30 ALT 9 U/L (7-52) 04/10/18 19:30 Alkaline Phosphatase 73 U/L (34-104) 04/10/18 19:30 Troponin I 0.02 ng/mL (0.01-0.05) 04/10/18 19:30 Total Protein 6.8 gm/dL (6.0-8.3) 04/10/18 19:30 Albumin 3.8 gm/dL (3.7-5.3) 04/10/18: Globulin 3.0 gm/dL 04/10/18:30 Albumin/Globulin Ratio 1.3 (1.0-1.8) 04/10/18 19:30 Triglycerides 117 mg/dL (<150) 04/10/18 19:30 Cholesterol 140 mg/dL (<200) 04/10/18 19: LDL Cholesterol Direct 96 mg/dL (75-193) 04/10/18 19:30 HDL Cholesterol 37 mg/dL (23-92) 04/10/18 19:30 - Physical Exam Vitals and I&O: Vital Signs Temp 97.8 F 04/13/18 06:39 Pulse 77 04/13/18 08:20 Resp 18 04/13/18 08:00 BP 160/79 04/13/18 08:20 Pulse Ox 97 04/13/18 06:39 Intake & Output 04/12/18 04/13/18 04/13/18 18:59 06:59 18:59 Intake Total 899 120 Balance 899 120 Intake: Oral 899 120 Other: # Voids 3 3 # Bowel Movements 1 Active Medications: Current Medications Acetaminophen (Tylenol) 650 mg PO Q4HR PRN PRN Reason: Mild Pain / Temp above 100 Stop: 06/09/18 21:52 Al Hydrox/Mg Hydrox/Simethicone (Maalox) 30 ml PO Q4HR PRN PRN Reason: GI DISTRESS Stop: 06/09/18 21:52 Albuterol Sulfate (Ventolin) 2 mg PO QID [facility] Stop: 06/10/18 08:59 Last Admin: 04/13/18 08:17 Dose: 2 mg Aspirin (Aspirin Chewable) 81 mg PO DAILY [facility] Stop: 06/10/18 08:59 Last Admin: 04/13/18 08:21 Dose: 81 mg Benztropine Mesylate (Cogentin) 1 mg PO DAILY [facility] Stop: 06/10/18 08:59 Last Admin: 04/13/18 08:21 Dose: 1 mg Carbidopa/Levodopa (Sinemet 25mg-100 Mg) 1 tab PO TID [facility] Stop: 06/10/18 08:59 Last Admin: 04/13/18 08:21 Dose: 1 tab Carvedilol (Coreg) 3.125 mg PO BID [facility] Stop: 06/10/18 08:59 Last Admin: 04/13/18 08:20 Dose: 3.125 mg Cholecalciferol (Vitamin D3) 1,000 iu PO DAILY [facility] Stop: 06/10/18 08:59 Last Admin: 04/13/18 08:21 Dose: 1,000 iu Fluoxetine HCl (Prozac) 20 mg PO DAILY [facility]; Protocol Stop: 06/10/18 08:59 Last Admin: 04/13/18 08:20 Dose: 20 mg Furosemide (Lasix) 20 mg PO DAILY [facility] Stop: 06/10/18 08:59 Last Admin: 04/13/18 08:19 Dose: 20 mg Gabapentin (Neurontin) 300 mg PO Q8HR [facility] Stop: 06/10/18 04:59 Last Admin: 04/13/18 05:02 Dose: 300 mg Haloperidol Decanoate (Haldol Dec) 50 mg IM [id number] [facility] Stop: 06/19/18 09:59 Ketotifen Fumarate (Zaditor 0.025% Ophth Soln) 1 drop EACH EYE BID PRN PRN Reason: SWOLLEN EYES Stop: 06/12/18 08:45 Lisinopril (Zestril) 20 mg PO BID [facility] Stop: 06/10/18 08:59 Last Admin: 04/13/18 08:19 Dose: 20 mg Lorazepam (Ativan) 0.5 mg PO Q4HR PRN; Protocol PRN Reason: Anxiety Stop: 05/10/18 21:52 Last Admin: 04/13/18 05:05 Dose: 0.5 mg Magnesium Hydroxide (Milk Of Magnesia) 30 ml PO HS PRN PRN Reason: Constipation Olanzapine 5 mg/ Olanzapine 2. (5 mg) 7.5 mg PO QPM [facility] Stop: 06/10/18 16:59 Last Admin: 04/12/18 16:50 Dose: 7.5 mg Oxybutynin Chloride (Ditropan) 5 mg PO TID [facility] Stop: 06/10/18 08:59 Last Admin: 04/13/18 08:20 Dose: 5 mg Pantoprazole Sodium (Protonix) 40 mg PO QDAC [facility] Stop: 06/10/18 07:29 Last Admin: 04/13/18 06:35 Dose: 40 mg Senna (Senna) 8.6 mg PO BID [facility] Stop: 06/10/18 08:59 Last Admin: 04/13/18 08:20 Dose: 8.6 mg Simvastatin (Zocor) 40 mg PO HS [facility]; Protocol Stop: 06/10/18 20:59 Last Admin: 04/12/18 20:18 Dose: 40 mg Trazodone HCl (Desyrel) 50 mg PO HS [facility]; Protocol Stop: 06/10/18 20:59 Last Admin: 04/12/18 20:19 Dose: 50 mg Zolpidem Tartrate (Ambien) 5 mg PO HS PRN PRN Reason: Insomnia Stop: 06/09/18 21:52 Last Admin: 04/12/18 20:18 Dose: 5 mg General: Alert, No acute distress HEENT: Atraumatic Neck: Supple Cardiovascular: Regular rate Lungs: Clear to auscultation Abdomen: Bowel sounds, Soft Extremities: Other (No edema) Neurological: Other (Unstable gait) Skin: Other (Warm ) Psych/Mental Status: Other (Confused, not oriented) - Procedures Procedures: Procedures Procedure Code Date GROUP PSYCHOTHERAPY 21283 03/19/15 GROUP PSYCHOTHERAPY [id number] 03/19/15 OTHER GROUP THERAPY 94.44 07/28/10 RECREATIONAL THERAPY 93.81 07/28/10 Assessment/Plan - Assessment Assessment: Patient is awake, alert, confused, not oriented. Dx: Increased in agitation, Depression, Bipolar, COPD, HTN. - Plan Plan: Patient is under Psychiatric care, continue with SNF medications. Will continue to monitor.
[2018-04-13] MEDS: Diclofenac 75 mg Tab PO SCH (16:46)
[2018-04-14] MEDS: Pantoprazole 40 mg EC Tab PO SCH (06:51)
[2018-04-14] MEDS: Aspirin 81mg Chewable Tab PO SCH (08:30)
[2018-04-14] MEDS: Albuterol 2 mg/5 mL UDC PO SCH ×2 (08:31→14:36)
[2018-04-14] MEDS: Benztropine 1 MG TAB PO SCH (08:31)
[2018-04-14] MEDS: Diclofenac 75 mg Tab PO SCH (08:36)
--- NOTE | 2018-04-14 08:36 | General Progress Note ---
Subjective - Review of Systems Service Date: 04/14/18 Subjective: Patient is confused. Objective - Results Result Diagrams: 04/10/18 19:04/10/18 19: Recent Labs: Laboratory Last Values WBC 9.0 Th/cmm (4.8-10.8) 04/10/18: RBC 4.71 Mil/cmm (3.80-5.20) 04/10/18: Hgb 10.6 gm/dL (12-16) L 04/10/18: Hct 33.4 % (41.0-60) L 04/10/18: MCV 70.9 fl (81-100) L 04/10/18: MCH 22.6 pg (27.0-31.0) L 04/10/18 MCHC Differential 31.8 pg (28.0-36.0) 04/10/18 RDW 17.9 % (11.5-20.0) 04/10/18 Plt Count 364 Th/cmm (150-400) 04/10/18: MPV 7.4 fl 04/10/18: Neutrophils % 76.0 % (40.0-80.0) 04/10/18: Lymphocytes % 13.7 % (20.0-50.0) L 04/10/18: Monocytes % 6.6 % (2.0-10.0) 04/10/18: Eosinophils % 3.2 % (0.0-5.0) 04/10/18 Basophils % 0.5 % (0.0-2.0) 04/10/18: PT 9.7 SECONDS (9.5-11.5) 04/10/18: INR 0.93 (0.5-1.4) 04/10/18: PTT (Actin FS) 25.9 SECONDS (26.0-38.0) L 04/10/18: Sodium 134 mEq/L (136-145) L 04/10/18: Potassium 3.9 mEq/L (3.5-5.1) 04/10/18: Chloride 100 mEq/L (98-107) 01/21/19 19:30 Carbon Dioxide 27.8 mEq/L (21.0-31.0) 04/10/18 19:30 Anion Gap 10.1 (7.0-16.0) 04/10/18 19:30 BUN 21 mg/dL (7-25) 04/10/18 19:30 Creatinine 0.7 mg/dL (0.6-1.2) 04/10/18 19:30 Est GFR ( Amer) > 60.0 ml/min (>90) 04/10/18 19:30 Est GFR (Non-Af Amer) > 60.0 ml/min 04/10/18 19:30 BUN/Creatinine Ratio 30.0 04/10/18 19:30 Glucose 164 mg/dL (70-105) H 04/10/18 19:30 Calcium 9.4 mg/dL (8.6-10.3) 04/10/18 19:30 Total Bilirubin 0.2 mg/dL (0.3-1.0) L 04/10/18 19:30 AST 13 U/L (13-39) 04/10/18:30 ALT 9 U/L (7-52) 04/10/18 19:30 Alkaline Phosphatase 73 U/L (34-104) 04/10/18 19:30 Troponin I 0.02 ng/mL (0.01-0.05) 04/10/18 19:30 Total Protein 6.8 gm/dL (6.0-8.3) 04/10/18 19:30 Albumin 3.8 gm/dL (3.7-5.3) 04/10/18: Globulin 3.0 gm/dL 04/10/18:30 Albumin/Globulin Ratio 1.3 (1.0-1.8) 04/10/18 19:30 Triglycerides 117 mg/dL (<150) 04/10/18 19:30 Cholesterol 140 mg/dL (<200) 04/10/18 19:30 LDL Cholesterol Direct 96 mg/dL (75-193) 04/10/18 19:30 HDL Cholesterol 37 mg/dL (23-92) 04/10/18 19:30 - Physical Exam Vitals and I&O: Vital Signs Temp 97.8 F 04/14/18 06:33 Pulse 70 04/14/18 08:30 Resp 20 04/14/18 06:33 BP 170/68 04/14/18 08:30 Pulse Ox 97 04/14/18 06:33 Intake & Output 04/13/18 04/14/18 04/14/18 18:59 06:59 18:59 Intake Total 1000 480 Balance 1000 480 Intake: Oral 1000 480 Other: # Voids 3 1 # Bowel Movements 1 Active Medications: Current Medications Acetaminophen (Tylenol) 650 mg PO Q4HR PRN PRN Reason: Mild Pain / Temp above 100 Stop: 06/09/18 21:52 Al Hydrox/Mg Hydrox/Simethicone (Maalox) 30 ml PO Q4HR PRN PRN Reason: GI DISTRESS Stop: 06/09/18 21:52 Albuterol Sulfate (Ventolin) 2 mg PO QID [facility] Stop: 06/10/18 08:59 Last Admin: 04/14/18 08:31 Dose: 2 mg Aspirin (Aspirin Chewable) 81 mg PO DAILY [facility] Stop: 06/10/18 08:59 Last Admin: 04/14/18 08:30 Dose: 81 mg Benztropine Mesylate (Cogentin) 1 mg PO DAILY [facility] Stop: 06/10/18 08:59 Last Admin: 04/14/18 08:31 Dose: 1 mg Carbidopa/Levodopa (Sinemet 25mg-100 Mg) 1 tab PO TID [facility] Stop: 06/10/18 08:59 Last Admin: 04/14/18 08:30 Dose: 1 tab Carvedilol (Coreg) 3.125 mg PO BID [facility] Stop: 06/10/18 08:59 Last Admin: 04/14/18 08:30 Dose: 3.125 mg Cholecalciferol (Vitamin D3) 1,000 iu PO DAILY [facility] Stop: 06/10/18 08:59 Last Admin: 04/14/18 08:31 Dose: 1,000 iu Diclofenac Sodium (Voltaren) 75 mg PO BID [facility] Stop: 06/12/18 16:59 Last Admin: 04/13/18 16:46 Dose: 75 mg Fluoxetine HCl (Prozac) 20 mg PO DAILY [facility]; Protocol Stop: 06/10/18 08:59 Last Admin: 04/14/18 08:30 Dose: 20 mg Furosemide (Lasix) 20 mg PO DAILY [facility] Stop: 06/10/18 08:59 Last Admin: 04/14/18 08:30 Dose: 20 mg Gabapentin (Neurontin) 300 mg PO Q8HR APOLINAR Stop: 06/10/18 04:59 Last Admin: 04/14/18 04:51 Dose: 300 mg Haloperidol Decanoate (Haldol Dec) 50 mg IM [id number] APOLINAR Stop: 06/19/18 09:59 Ketotifen Fumarate (Zaditor 0.025% Ophth Soln) 1 drop EACH EYE BID PRN PRN Reason: SWOLLEN EYES Stop: 06/12/18 08:45 Lisinopril (Zestril) 20 mg PO BID AP[facility] Stop: 06/10/18 08:59 Last Admin: 04/14/18 08:30 Dose: 20 mg Lorazepam (Ativan) 0.5 mg PO Q4HR PRN; Protocol PRN Reason: Anxiety Stop: 05/10/18 21:52 Last Admin: 04/13/18 05:05 Dose: 0.5 mg Magnesium Hydroxide (Milk Of Magnesia) 30 ml PO HS PRN PRN Reason: Constipation Olanzapine 5 mg/ Olanzapine 2. (5 mg) 7.5 mg PO QPM APOLINAR Stop: 06/10/18 16:59 Last Admin: 04/13/18 16:45 Dose: 7.5 mg Oxybutynin Chloride (Ditropan) 5 mg PO TID AP[facility]INAR Stop: 06/10/18 08:59 Last Admin: 04/14/18 08:31 Dose: 5 mg Pantoprazole Sodium (Protonix) 40 mg PO QDAC APOLINAR Stop: 06/10/18 07:29 Last Admin: 04/14/18 06:51 Dose: 40 mg Senna (Senna) 8.6 mg PO BID APOLINAR Stop: 06/10/18 08:59 Last Admin: 04/14/18 08:30 Dose: 8.6 mg Simvastatin (Zocor) 40 mg PO HS APOLINAR; Protocol Stop: 06/10/18 20:59 Last Admin: 04/13/18 21:39 Dose: Not Given Trazodone HCl (Desyrel) 50 mg PO HS APOLINAR; Protocol Stop: 06/10/18 20:59 Last Admin: 04/13/18 21:40 Dose: Not Given Zolpidem Tartrate (Ambien) 5 mg PO HS PRN PRN Reason: Insomnia Stop: 06/09/18 21:52 Last Admin: 04/12/18 20:18 Dose: 5 mg General: Alert, No acute distress HEENT: Atraumatic Neck: Supple Cardiovascular: Regular rate Lungs: Clear to auscultation Abdomen: Bowel sounds, Soft Extremities: Other (No edema) Neurological: Other (Unstable gait) Skin: Other (Warm ) Psych/Mental Status: Other (Confused, not oriented) - Procedures Procedures: Procedures Procedure Code Date GROUP PSYCHOTHERAPY 13734 03/19/15 GROUP PSYCHOTHERAPY [id number] 03/19/15 OTHER GROUP THERAPY 94.44 07/28/10 RECREATIONAL THERAPY 93.81 07/28/10 Assessment/Plan - Assessment Assessment: Patient is awake, alert, confused, not oriented, occasionally she is refusing meds. Dx: Increased in agitation, Depression, Bipolar, COPD, HTN. - Plan Plan: Patient is under Psychiatric care, continue with SNF medications. Will continue to monitor. Nutritional Asmnt/Malnutr-PDOC - Dietary Evaluation Malnutrition Findings (Please click <Entered> for more info): Nutritional Asmnt/Malnutrition Start: 04/13/18 13: 48 Text: Status: Active Freq: Protocol: Document 04/13/18 13:49 [email or web address] (Rec: 04/13/18 13:55 [email or web address] ANTONIA) Nutritional Asmnt/Malnutrition Patient General Information Nutritional Screening Moderate Risk Diagnosis increased agitation Pertinent Medical Hx/Surgical Hx CAD, HTN, COPD, dementia, pancreatitis, bipolar, depression, psychosis Subjective Information Pt was seen eating in room at time of visit, very agitated. PO intake is 75-100% per EMR. Current Diet Order/ Nutrition Support [facility] soft chopped, low fat, finely chopped Pertinent Medications maalox, vit d3, lasix, protonix, senna, ambien Pertinent Labs 04/10 na 134, glucose 164 Nutritional Hx/Data Height 1.52 m Height (Calculated Centimeters) 152.4 Current Weight (lbs) 74.843 kg Weight (Calculated Kilograms) 74.8 Weight (Calculated Grams) 02858.7 [place] Body Weight 100 Body Mass Index (BMI) 32.2 Weight Status Obese GI Symptoms GI Symptoms None Last BM 04/12 Difficult in: None Food Allergies No Skin Integrity/Comment: intact, maynor 16 Current %PO Good (75-100%) Estimated Nutritional Goals BEE in Kcals: Adj wt of IBW Calories/Kcals/Kg 25-30 Kcals Calculated 4559-9288 Protein: Adj wt of IBW Protein g/k Protein Calculated 52 Fluid: ml 7588-0024 (1ml/kcal) Nutritional Problem No current Nutrition Prob Problem N/A Malnutrition Alert Is there a minimum of two criteria No selected? Query Text:Check all the applicable criteria. A minimum of two criteria are recommended for diagnosis of either severe or non-severe malnutrition. Malnutrition Related to Morbid Obesity Malnutrition related to morbid obesity No Intervention/Recommendation Comments 1. Continue with [facility] soft chopped, low fat, finely chopped diet as ordered. 2. Monitor PO intake, wt, labs and skin integrity 3. F/U as low risk in 7 days Expected Outcomes/Goals Expected Outcomes/Goals 1. PO intake to meet at least 75% of nutritional needs. 2. Wt stability, skin to remain intact, labs to approach WNL. Reviewed by Mita Louise RD
--- NOTE | 2018-04-16 16:31 | Discharge Summary ---
DATE OF DISCHARGE: 04/14/2018 AGE: 67. SEX: Female. PHYSICIAN: Dr. Trinidad. FINAL DIAGNOSIS/PRIMARY DIAGNOSIS: Bipolar disorder, depressed episode, severe, without psychotic features. REASON FOR HOSPITALIZATION: The patient was admitted to the hospital because of increased irritability and because of increased agitation and anger in [facility] where she lives. HOSPITAL COURSE: The patient continued to be anxious. The patient also continued to be in irritable mood. She also continued to be interacting minimally with others. The patient was also at times demanding. The patient was given Zyprexa and patient also starts to take Prozac 20 mg every day. The patient also was given an injection of Haldol Decanoate every 2 weeks. Gradually, the patient's affect was brighter. The patient was less irritable and less agitated. Also, continue to take Zyprexa 7.5 mg at bedtime with no side effects. The patient was not suicidal or homicidal, and the patient will returned back to [facility]. Physical exam of the patient was basically within normal and the patient had no major medical problems while in the hospital. AFTER DISCHARGE PLANS: The patient discharged from the hospital, returned to [facility] with plans for outpatient treatment there. EXPECTED OUTCOME AFTER DISCHARGE: The patient continued to take her medications and follow up with discharge plans. [facility]# [id number]
--- NOTE | 2018-04-16 20:13 | Progress Notes ---
DATE: 04/13/2018 SUBJECTIVE: Chart reviewed and the patient interviewed. Also discussed the patient's condition with the staff and reviewed records and labs. The patient is still suspicious and still needs agitated and in irritable mood. The patient also is still interacting minimally with others. She also is still having episodes of impulsivity and anger and easily agitated. Otherwise, the patient continued to comply with taking her medications with no side effects of medications. The patient is taking Prozac and staff said that she was refusing Prozac, but the patient said that she will take it. ASSESSMENT: The patient is still irritable, but seems to be less interaction. TREATMENT PLAN: Continue to monitor her behavior and continue adjusting psychotropic medications and follow up closely. [facility]# [id number]
== END 2018-04-14 15:30 | DRG 885 ==
LOC: ER 18:28 → GERO2 20:53 → GERO 04-11 21:02
PROVIDERS: ADMIT Psychiatry & Neurology Psychiatry; ATTEND Psychiatry & Neurology Psychiatry
DX: F31.2 Bipolar disorder, current episode manic severe with psychotic features (principal); I10 Essential (primary) hypertension; J44.9 Chronic obstructive pulmonary disease, unspecified; F41.9 Anxiety disorder, unspecified; I25.10 Atherosclerotic heart disease of native coronary artery without angina pectoris; F03.90 Unspecified dementia, unspecified severity, without behavioral disturbance, psychotic disturbance, mood disturbance, and anxiety
CPT/HCPCS: 36415-UA; 71045-TC; 80053-TC; 80061-TC; 83036-90; 84484-TC; 85025-TC; 85610-TC; 85730-TC; 93005; G0410; J1100; J7051; Z7610

== ENCOUNTER 2018-09-27 18:20 | Inpatient (IN) | payer MEDICARE, MEDICAID ==
--- NOTE | 2018-09-27 18:46 | ED Physician Chart ---
ED Chief Complaint/HPI - Patient Information Date Seen:: 09/27/18 Time Seen:: 18:30 Chief Complaint:: Agitation History of Present Illness:: onset x 2 days of agitation SIs and hostile behavior; no report of trauma, H/As , S/T, neck pain, C/P, cough, Abd. Pain, A/N/V/D/C, fever, chills, or urinary s/ s Allergies:: Allergies Allergy/AdvReac Type Severity Reaction Status Date / Time No Known Allergies Allergy Verified 04/10/18 18:40 Historian:: Patient, EMS Review:: Nurse's Note Reviewed, Old Chart Reviewed, EMS run form Reviewed ED Review of Systems - Review of Systems General/Constitutional: No fever, No chills, No weight loss, No weakness, No diaphoresis, No edema, No loss of appetite Skin: No skin lesions, No rash, No bruising Head: No headache, No light-headedness Eyes: No loss of vision, No pain, No diplopia ENT: No earache, No nasal drainage, No sore throat, No tinnitus Neck: No neck pain, No swelling, No thyromegaly, No stiffness, No mass noted Cardio Vascular: No chest pain, No palpitations, No PND, No orthopnea, No edema Pulmonary: No SOB, No cough, No sputum, No wheezing GI: No nausea, No vomiting, No diarrhea, No pain, No melena, No hematochezia, No constipation, No hematemesis G/U: No dysuria, No frequency, No hematuria, No nacturia Senior Hydrogeologist: No vaginal discharge, No abnormal vaginal bleed, No contraction Musculoskeletal: No bone or joint pain, No back pain, No muscle pain Endocrine: No polyuria, No polydipsia Psychiatric: Prior psych history, Depression, Anxiety, No suicidal ideation, No homicidal ideation, No auditory hallucination, No visual hallucination Hematopoietic: No bruising, No lymphadenopathy Allergic/Immuno: No urticaria, No angioedema Neurological: No syncope, No focal symptoms, No weakness, No paresthesia, No headache, No seizure, No dizziness, Confusion, No vertigo ED Past Medical History - Past Medical History Obtainable: Yes Past Medical History: HTN, Asthma/COPD, Dyslipidemia, PUD/GERD (Parkinson's Disease), Dementia, Other Family History: HTN Social History: Non Smoker, No Alcohol, No Drug Use, , Care Facility Surgical History: None Psychiatricy History: Depression, Bipolar, Dementia Medication: Reviewed Family Medical History - Family Member Mother History Unknown: Yes Ethnicity: Non- Living Status: Hx Family Cancer: No Hx Family Coronary Artery Disease: No Hx Family Congestive Heart Failure: No Hx Family Hypertension: No Hx Family Stroke: No Hx Family Diabetes: No Hx Family Seizures: No Hx Family Dementia: No Hx Family AIDS: No Hx Family HIV: No Hx Family COPD: No Hx Family Hepatitis: No Hx Family Psychiatric Problems: No Hx Family Tuberculosis: No ED Physical Exam - Physical Examination General/Constitutional: Awake, Well-developed, well-nourished, Alert, No distress, GCS 15, Non-toxic appearing, Ambulatory Head: Atraumatic Eyes: Lids, conjuctiva normal, PERRL, EOMI Skin: Nl inspection, No rash, No skin lesions, No ecchymosis, Well hydrated, No lymphadenopathy ENMT: External ears, nose nl, TM canals nl, Nasal exam nl, Lips, teeth, gums nl , Oropharynx nl, Tonsils nl Neck: Nontender, Full ROM w/o pain, No JVD, No nuchal rigidity, No bruit, No mass, No stridor Respiratory: Nl effort/Exclusion, Clear to Auscultation, No Wheeze/Rhonchi/Rales Cardio Vascular: RRR, No murmur, gallop, rubs, NL S1 S2, Carotid/Femoral/Distal pulses equal bilaterally GI: No tenderness/rebounding/guarding, No organomegaly, No hernia, Normal BS's, Nondistended, No mass/bruits, No McBurney tenderness : No CVA tenderness Extremities: No tenderness or effusion, Full ROM, normal strength in all extremities, No edema, Normal digits & nails Neuro/Psych: Alert/oriented, DTR's symmetric, Normal sensory exam, Normal motor strength, Judgement/insight normal, Mood normal, Normal gait, No focal deficits Other Neuro/Psych comments:: + Psychomotor Agitation; + SIs; Mood/Affect: Labile Misc: Normal back, No paraspinal tenderness ED Labs/Radiology/EKG Results - Lab Results Comments:: Reviewed - EKG Interpretations EKG Time:: 18:56 Rate & Rhythm: 71; NSR Comments:: RBBB; non-specific st-t changes ED Septic Shock - . Is Septic Shock (SBP<90, OR Lactate>4 mmol\L) present?: No ED Reassessment (Disposition) - Reassessment Reassessment Condition:: Improved - Diagnosis Diagnosis:: Agitation; Medical Clearance; Suicidal Ideations; Bipolar Disorder - Aftercare/Follow up Instructions Aftercare/Follow-Up Instructions:: Counseled pt regarding lab results/diagnosis & need follow up, Counseled pt & family regarding lab results/diagnosis & need follow up - Patient Disposition Discharge/Transfer:: Acute Care w/in this hosp Admitted to:: [facility] Condition at Disposition:: Stable, Improved
[2018-09-27 19:03] LABS: % BASOPHILS 0.8 % (0.0-2.0); % EOSINOPHILS 4.8 % (0.0-5.0); % LYMPHOCYTES 21.8 % (20.0-50.0); % MONOCYTES 10.2 % (2.0-10.0); % NEUTROPHILS 62.4 % (40.0-80.0); BASOPHILE ABSOLUTE 0.1 Th/cumm (0-0.2); EOSINOPHILE ABSOLUTE 0.4 Th/cmm (0.1-0.4); HEMATOCRIT 34.9 % (41.0-60); HEMOGLOBIN 11.5 gm/dL (12-16); LYMPHOCYTE ABSOLUTE 1.6 Th/cmm (1.5-3.0); MEAN CELL VOLUME 74.6 fl (81-100); MEAN CORPUSCULAR HEMOGLOBIN 24.5 pg (27.0-31.0); MEAN CORPUSCULAR HGB CONC 32.9 pg (28.0-36.0); MONOCYTE ABSOLUTE 0.8 Th/cmm (0.3-1.0); NEUTROPHILE ABSOLUTE 4.5 Th/cmm (1.8-8.0); PLATELET COUNT 321 Th/cmm (150-400); RED BLOOD COUNT 4.68 Mil/cmm (3.80-5.20); RED CELL DISTRIBUTION WIDTH 20.6 % (11.5-20.0); WHITE BLOOD COUNT 7.4 Th/cmm (4.8-10.8)
[2018-09-27 19:20] LABS: ALB/GLOB RATIO 1.2 (1.0-1.8); ALBUMIN 3.8 gm/dL (3.7-5.3); ALKALINE PHOSPHATASE 68 U/L (34-104); ANION GAP 10.8 (7.0-16.0); BILIRUBIN,TOTAL 0.3 mg/dL (0.3-1.0); BUN - UREA NITROGEN 16 mg/dL (7-25); CALCIUM SERUM 9.4 mg/dL (8.6-10.3); CHLORIDE 98 mEq/L (98-107); CHOLESTEROL 133 mg/dL (<200); CREATININE - SERUM 0.7 mg/dL (0.6-1.2); GFR AFRICAN-AMERICAN > 60.0 ml/min (>90); GFR NON AFRICAN-AMERICAN > 60.0 ml/min; GLUCOSE 107 mg/dL (70-105); HDL -HIGH DENSITY LIPOPROTEIN 34 mg/dL (23-92); POTASSIUM SERUM 3.8 mEq/L (3.5-5.1); SGOT 12 U/L (13-39); SGPT/ALT 4 U/L (7-52); SODIUM SERUM 133 mEq/L (136-145); TOTAL PROTEIN,SERUM 6.9 gm/dL (6.0-8.3); TRIGLYCERIDES 153 mg/dL (<150)
[2018-09-27 19:28] LABS: ACETAMINOPHEN < 10.0 ug/mL (10.0-30.0)
[2018-09-27 21:17] VITALS: BP 132/71
[2018-09-27] MEDS ORDERED: Maalox 30 mL Cup PO PRN (21:50)
[2018-09-27] MEDS ORDERED: Non-Formulary Item 1 EA (Diclofenac Sodium [Voltaren] 2 GM) TP PRN (22:20)
[2018-09-28] MEDS: Pantoprazole 40 mg EC Tab PO SCH (06:49)
[2018-09-28] MEDS: Aspirin 81mg Chewable Tab PO SCH (08:45)
[2018-09-28] MEDS: Albuterol 2 mg/5 mL UDC PO SCH ×4 (10:00→20:36)
[2018-09-28] MEDS: Atorvastatin Calcium 10 MG TAB PO SCH (20:37)
[2018-09-28] MEDS ORDERED: Non-Formulary Item 1 EA (Valbenazine Tosylate [Ingrezza] 40 MG) PO SCH (21:00)
--- NOTE | 2018-09-29 00:35 | Psychiatric Evaluation ---
DATE OF SERVICE: 09/28/2018 PSYCHIATRIC INITIAL EVALUATION MENTAL STATUS EXAM AGE: 68 SEX: Female. PHYSICIAN: Dr. Trinidad. CHIEF COMPLAINT: Severe depression and suicidal ideations. HISTORY OF PRESENT ILLNESS: The patient is a 68-year-old female with history of depression. The patient came in from [facility] because of increased depression and because of suicidal ideations. The patient also is having difficulty with mood swings and she started to have thoughts of suicide lately with no specific plans. She also has been agitated and restless. During the interview, the patient said "I don't go back there," referring to going back to [facility]. The patient thinks that she is unhappy there and she is not treated there fairly. She also has been feeling hopeless and helpless. The patient continued to take Prozac, but she is still severely depressed. She also has been taking Haldol Decanoate injection every 2 weeks. She still at times gets suspicious and paranoid and agitated. PAST PSYCHIATRIC HISTORY: Multiple psychiatric hospitalizations for schizoaffective disorder. PAST MEDICAL HISTORY: The patient has Parkinson's disease. SOCIAL HISTORY: The patient lives in [facility]. No known alcohol use or street drug use. ALLERGIES: No known allergies. MENTAL STATUS EXAMINATION: The patient appears her stated age. Anxious. Flat affect. In irritable moods and severely depressed. The patient denies any auditory or visual hallucinations or delusions. The patient admits suicidal ideations with no specific plan, but denies homicidal ideations. The patient is alert and oriented to time, place, person, and situation. Intact immediate, recent and remote memories. Fair insight. Poor judgment. Seems to be of average intelligence based on her verbal ability. ASSESSMENT: PRIMARY DIAGNOSIS: Schizoaffective disorder, depressed episode, severe, without psychotic features. TREATMENT PLAN: We will monitor the patient's behavior and condition closely. We will start individual as well as milieu psychotherapy and we will adjust the patient's medications. ESTIMATED LENGTH OF STAY: 5-7 days. THE PATIENT'S STRENGTHS AND WEAKNESS: The patient's strength is not clear at this time except she is in relatively fair health and cooperative in treatment. WEAKNESSES: Ineffective coping and her agitation. AFTER DISCHARGE PLAN: Depends on hospital course but the patient might need placement if she refused to go to [facility], but we will try strongly to let her go back there since she has been living there for several years. JOB# [id number]
[2018-09-29 04:04] LABS: A1C 5.9 % (4.8-5.6)
[2018-09-29] MEDS: Pantoprazole 40 mg EC Tab PO SCH (06:32)
[2018-09-29] MEDS: Aspirin 81mg Chewable Tab PO SCH (08:23)
[2018-09-29] MEDS: Albuterol 2 mg/5 mL UDC PO SCH ×4 (08:25→20:35)
[2018-09-29] MEDS: Polyvinyl Alcohol Ophth Soln 15 mL Bottle EACH EYE SCH ×2 (09:10→16:16)
[2018-09-29] MEDS: Hydrocodone/APAP 5mg/325mg Tab PO PRN (16:17)
--- NOTE | 2018-09-29 17:48 | History & Physical ---
ADMIT DATE: 09/27/2018 INTERNAL MEDICINE HISTORY AND PHYSICAL The patient was seen ____, this is a second attempt 09/29/2018. CHIEF COMPLAINT: Medical evaluation and clearance. HISTORY OF PRESENT ILLNESS: This is a 68-year-old female with history of hypertension, COPD, hypercholesterolemia, GERD, CAD, Parkinson, admitted under service of Dr. Trinidad. The patient complains of back pain. Denies any shortness of breath. PAST MEDICAL HISTORY: As mentioned in the history of present illness. PAST SURGICAL HISTORY: Status post back surgery, numerous times. MEDICATIONS: Lasix, albuterol, aspirin, atorvastatin, acetaminophen, labetolol, cholecalciferol, Voltaren, Prozac, Lasix, Neurontin, Haldol, Zestril, Ativan, Zyprexa, Ditropan, Flomax, ____. FAMILY HISTORY: Noncontributory. 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 REVIEW OF SYSTEMS: GENERAL: Complains of not feeling well. HEENT: No blurred vision or pain. LUNGS: ____. In the past, the patient with COPD. HEART: The patient with hypertension and coronary artery disease. ABDOMEN: No nausea, vomiting or pain. GENITOURINARY: The patient denies increased frequency or dysuria. NEUROLOGIC: History of Parkinson's. PSYCHIATRIC: Stable. PHYSICAL EXAMINATION: VITAL SIGNS: Blood pressure 146/88, respirations 20, pulse 71, and temperature 97.2. GENERAL: Elderly female, in a wheelchair. NECK: Supple. No mass. LUNGS: Equal breath sounds with few rhonchi. HEART: Regular rate and rhythm with no systolic ejection murmur. ABDOMEN: Soft, globular. EXTREMITIES: Positive excoriation atrophy. LABORATORY DATA: WBC 7.4, hemoglobin 11, platelets 321. Sodium 132, potassium 3.8, BUN 16, creatinine 0.7, blood sugar 107, triglyceride 153. ASSESSMENT AND PLAN: Low back pain/spinal stenosis, anemia, hyponatremia, hypertension, chronic obstructive pulmonary disease, hypercholesterolemia, gastroesophageal reflux disease, coronary artery disease, Parkinson, continue ____ with treatments. We will review the patient's medication. We may consider given the patient's adequate pain medications. The patient is following with pain management. Apparently getting narcotics. We will continue to follow patient with ____. We will titrate ____ medications. Monitor for any signs of fluid overload. We will follow closely. JOB# [id number]
[2018-09-29] MEDS: Atorvastatin Calcium 10 MG TAB PO SCH (20:36)
--- NOTE | 2018-09-29 22:36 | Progress Notes ---
DATE: 09/29/2018 SUBJECTIVE: Chart reviewed and the patient interviewed. Also discussed the patient's condition with the staff and reviewed records and labs. The patient is still anxious and is still in a depressed mood. The patient also has crying episodes. The patient also is isolative and interacting minimally with others. She also continued to take Neurontin, Prozac, Zyprexa and trazodone. The patient also seems to be slightly calmer than before and she is not as verbally abusive. ASSESSMENT: The patient is still depressed and anxious. TREATMENT PLAN: Continue to work on her behavior modification and her ineffective coping. Also, continue adjusting psychotropic medications. Also, working on her discharge plans and possible placement issue. [facility]# [id number]
[2018-09-30] MEDS: Pantoprazole 40 mg EC Tab PO SCH (06:46)
[2018-09-30] MEDS: Albuterol 2 mg/5 mL UDC PO SCH ×4 (09:00→20:47)
[2018-09-30] MEDS: Aspirin 81mg Chewable Tab PO SCH (09:19)
[2018-09-30] MEDS: Hydrocodone/APAP 5mg/325mg Tab PO PRN ×2 (09:37→14:21)
[2018-09-30] MEDS: Polyvinyl Alcohol Ophth Soln 15 mL Bottle EACH EYE SCH ×2 (09:38→16:12)
--- NOTE | 2018-09-30 13:37 | Internal Medicine Prog Note ---
Internal Medicine Subjective - Subjective Patient seen and examined:: with staff, chart reviewed Patient is:: awake, interactive, in wheelchair Patient Complaints of:: constipation Per staff patient has:: no adverse event, no episodes of fall Internal Medicine Objective - Results Result Diagrams: 09/27/18 19:00 09/27/18 19:00 Recent Labs: Laboratory Last Values WBC 7.4 Th/cmm (4.8-10.8) 09/27/18 19:00 RBC 4.68 Mil/cmm (3.80-5.20) 09/27/18 19:00 Hgb 11.5 gm/dL (12-16) L 09/27/18 19:00 Hct 34.9 % (41.0-60) L 09/27/18:00 MCV 74.6 fl (81-100) L 09/27/18 19:00 MCH 24.5 pg (27.0-31.0) L 09/27/18 19:00 MCHC Differential 32.9 pg (28.0-36.0) 09/27/18 19: RDW 20.6 % (11.5-20.0) H 09/27/18 19:00 Plt Count 321 Th/cmm (150-400) 09/27/18 19:00 MPV 7.1 fl 09/27/18 19:00 Neutrophils % 62.4 % (40.0-80.0) 09/27/18 19:00 Lymphocytes % 21.8 % (20.0-50.0) 09/27/18 19:00 Monocytes % 10.2 % (2.0-10.0) H 09/27/18 19:00 Eosinophils % 4.8 % (0.0-5.0) 09/27/18 19:00 Basophils % 0.8 % (0.0-2.0) 09/27/18 19:00 Sodium 133 mEq/L (136-145) L 09/27/18 19:00 Potassium 3.8 mEq/L (3.5-5.1) 09/27/18 19:00 Chloride 98 mEq/L (98-107) 09/27/18 19:00 Carbon Dioxide 28.0 mEq/L (21.0-31.0) 09/27/18 19:00 Anion Gap 10.8 (7.0-16.0) 09/27/18 19:00 BUN 16 mg/dL (7-25) 09/27/18 19:00 Creatinine 0.7 mg/dL (0.6-1.2) 09/27/18 19:00 Est GFR ( Amer) > 60.0 ml/min (>90) 09/27/18 19: Est GFR (Non-Af Amer) > 60.0 ml/min 09/27/18 19: BUN/Creatinine Ratio 22.9 09/27/18 19: Glucose 107 mg/dL (70-105) H 09/27/18 19:00 Calcium 9.4 mg/dL (8.6-10.3) 09/27/18: Total Bilirubin 0.3 mg/dL (0.3-1.0) 09/27/18 19:00 AST 12 U/L (13-39) L 09/27/18 19:00 ALT 4 U/L (7-52) L 09/27/18 19:00 Alkaline Phosphatase 68 U/L (34-104) 09/27/18 19: Troponin I 0.01 ng/mL (0.01-0.05) 09/27/18 19:00 Total Protein 6.9 gm/dL (6.0-8.3) 09/27/18:00 Albumin 3.8 gm/dL (3.7-5.3) 09/27/18: Globulin 3.1 gm/dL 09/27/18 19: Albumin/Globulin Ratio 1.2 (1.0-1.8) 09/27/18 19:00 Triglycerides 153 mg/dL (<150) H 09/27/18 19:00 Cholesterol 133 mg/dL (<200) 09/27/18 19:00 LDL Cholesterol Direct 80 mg/dL (75-193) 09/27/18 19:00 HDL Cholesterol 34 mg/dL (23-92) 09/27/18 19: TSH 1.47 uIU/ml (0.34-5.60) 09/27/18 19:00 Salicylates < 25.0 mg/L (30.0-100.0) L 09/27/18 19: Acetaminophen < 10.0 ug/mL (10.0-30.0) L 09/27/18 19:00 Ethyl Alcohol < 10 mg/dL (0-10) 09/27/18 19:00 - Physical Exam Vitals and I&O: Vital Signs Temp 98.2 F 09/30/18 06:36 Pulse 72 09/30/18 09:23 Resp 20 09/30/18 06:36 BP 172/98 09/30/18 09:23 Pulse Ox 96 09/30/18 06:36 Intake & Output 09/29/18 09/30/18 09/30/18 18:59 06:59 18:59 Intake Total 1200 120 Balance 1200 120 Intake: Oral 1200 120 Other: # Voids 2 # Bowel Movements 1 1 Active Medications: Current Medications Acetaminophen (Tylenol) 650 mg PO Q4HR PRN PRN Reason: Mild Pain / Temp above 100 Stop: 11/26/18 21:49 Last Admin: 09/28/18 09:41 Dose: 650 mg Acetaminophen/Hydrocodone Bitart ([place] 5mg/325mg) 1 tab PO Q4H PRN PRN Reason: Pain (Severe) Stop: 11/28/18 14:43 Last Admin: 09/30/18 09:37 Dose: 1 tab Al Hydrox/Mg Hydrox/Simethicone (Maalox) 30 ml PO Q4HR PRN PRN Reason: GI DISTRESS Stop: 11/26/18 21:49 Albuterol Sulfate (Ventolin) 2 mg PO QID [facility] Stop: 11/27/18 08:59 Last Admin: 09/29/18 20:35 Dose: 2 mg Artificial Tears (Artificial Tears Ophth Soln) 1 drop EACH EYE BID [facility] Stop: 11/27/18 08:59 Last Admin: 09/30/18 09:38 Dose: 1 drop Aspirin (Aspirin Chewable) 81 mg PO DAILY [facility] Stop: 11/27/18 08:59 Last Admin: 09/30/18 09:19 Dose: 81 mg Atorvastatin Calcium (Lipitor) 20 mg PO HS [facility] Stop: 11/27/18 20:59 Last Admin: 09/29/18 20:36 Dose: 20 mg Brimonidine Tartrate ([place] 0.2% Ophth Soln) 1 drop EACH EYE BID [facility] Stop: 11/27/18 08:59 Last Admin: 09/30/18 09:38 Dose: 1 drop Carbidopa/Levodopa (Sinemet 25mg-100 Mg) 1 tab PO TID [facility] Stop: 11/27/18 20:59 Last Admin: 09/30/18 09:20 Dose: 1 tab Carvedilol (Coreg) 3.125 mg PO BID [facility] Stop: 11/27/18 08:59 Last Admin: 09/30/18 09:22 Dose: 3.125 mg Cholecalciferol (Vitamin D3) 1,000 iu PO DAILY [facility] Stop: 11/27/18 08:59 Last Admin: 09/30/18 09:21 Dose: 1,000 iu Fluoxetine HCl (Prozac) 20 mg PO DAILY [facility]; Protocol Stop: 11/27/18 08:59 Last Admin: 09/30/18 09:20 Dose: 20 mg Furosemide (Lasix) 20 mg PO DAILY [facility] Stop: 11/27/18 08:59 Last Admin: 09/30/18 09:23 Dose: 20 mg Gabapentin (Neurontin) 300 mg PO Q8HR [facility] Stop: 11/27/18 04:59 Last Admin: 09/30/18 05:30 Dose: 300 mg Haloperidol Decanoate (Haldol Dec) 50 mg IM [id number] [facility]; Protocol Stop: 12/03/18 08:59 Lisinopril (Zestril) 20 mg PO BID [facility] Stop: 11/27/18 08:59 Last Admin: 09/30/18 09:23 Dose: 20 mg Lorazepam (Ativan) 0.5 mg PO Q6H PRN; Protocol PRN Reason: Anxiety Stop: 11/26/18 22:37 Last Admin: 09/30/18 09:20 Dose: 0.5 mg Olanzapine (Zyprexa) 7.5 mg PO 1700 [facility]; Protocol Stop: 11/27/18 16:59 Last Admin: 09/29/18 16:17 Dose: 7.5 mg Oxybutynin Chloride (Ditropan) 5 mg PO TID [facility] Stop: 11/27/18 08:59 Last Admin: 09/30/18 09:21 Dose: 5 mg Pantoprazole Sodium (Protonix) 40 mg PO QDAC [facility] Stop: 11/27/18 07:29 Last Admin: 09/30/18 06:46 Dose: 40 mg Senna (Senna) 8.6 mg PO BID [facility] Stop: 11/27/18 08:59 Last Admin: 09/30/18 09:22 Dose: 8.6 mg Trazodone HCl (Desyrel) 50 mg PO HS [facility]; Protocol Stop: 11/27/18 20:59 Last Admin: 09/29/18 20:36 Dose: 50 mg Zolpidem Tartrate (Ambien) 5 mg PO HS PRN PRN Reason: Insomnia Stop: 11/26/18 21:49 Last Admin: 09/29/18 21:19 Dose: 5 mg General: alert HEENT: NC/AT, PERRLA, EOMI Neck: Supple, No JVD Lungs: congested Cardiovascular: RRR, Normal S1, Normal S2, with murmur Abdomen: soft, globular, positive bowel sound - Procedures Procedures: Procedures Procedure Code Date GROUP PSYCHOTHERAPY 72361 03/19/15 GROUP PSYCHOTHERAPY GZHZZZZ 03/19/15 OTHER GROUP THERAPY 94.44 07/28/10 RECREATIONAL THERAPY 93.81 07/28/10 Internal Medicine Assmt/Plan - Assessment Assessment: ASSESSMENT AND PLAN: Low back pain/spinal stenosis, anemia, hyponatremia, hypertension, chronic obstructive pulmonary disease, hypercholesterolemia, gastroesophageal reflux disease, coronary artery disease, Parkinson, - Plan Plan: PLAN: continue ___pain control. We will review the patient's medication. We may consider given the patient's adequate pain medications. The patient is following with pain management. Apparently getting narcotics. We will continue to follow patient with __dr waller__. We will titrate __bp__ medications. Monitor for any signs of fluid overload. We will follow closely.
[2018-09-30] MEDS: Atorvastatin Calcium 10 MG TAB PO SCH (20:47)
--- NOTE | 2018-09-30 23:26 | Progress Notes ---
DATE: SUBJECTIVE: Chart was reviewed and the patient interviewed. Also discussed the patient's condition with the staff and reviewed records and labs. The patient is still anxious and still depressed mood. The patient also is interacting minimally with others. She also is still showing poor appetite and she is still severely depressed. Also continued to have mood swings. Otherwise, the patient is compliant with taking her medications and no side effects of medications. ASSESSMENT: The patient is still depressed and anxious. TREATMENT PLAN: Continue to monitor behavior and condition closely. Also, continue Prozac, Neurontin, Zyprexa and trazodone. Also, we will work on adjusting psychotropic medications and followup. JOB# [id number]
[2018-10-01] MEDS: Pantoprazole 40 mg EC Tab PO SCH (06:37)
[2018-10-01] MEDS: Aspirin 81mg Chewable Tab PO SCH (08:35)
[2018-10-01] MEDS: Albuterol 2 mg/5 mL UDC PO SCH ×5 (09:00→20:53)
[2018-10-01] MEDS: Polyvinyl Alcohol Ophth Soln 15 mL Bottle EACH EYE SCH ×2 (09:00→17:17)
[2018-10-01] MEDS: Hydrocodone/APAP 5mg/325mg Tab PO PRN ×2 (10:56→17:19)
--- NOTE | 2018-10-01 13:49 | Internal Medicine Prog Note ---
Internal Medicine Subjective - Subjective Patient seen and examined:: with staff, chart reviewed Patient is:: awake, interactive, in wheelchair Patient Complaints of:: constipation Per staff patient has:: no adverse event, no episodes of fall Internal Medicine Objective - Results Result Diagrams: 09/27/18 19:00 09/27/18 19:00 Recent Labs: Laboratory Last Values WBC 7.4 Th/cmm (4.8-10.8) 09/27/18 19:00 RBC 4.68 Mil/cmm (3.80-5.20) 09/27/18 19:00 Hgb 11.5 gm/dL (12-16) L 09/27/18 19:00 Hct 34.9 % (41.0-60) L 09/27/18:00 MCV 74.6 fl (81-100) L 09/27/18 19:00 MCH 24.5 pg (27.0-31.0) L 09/27/18 19:00 MCHC Differential 32.9 pg (28.0-36.0) 09/27/18 19: RDW 20.6 % (11.5-20.0) H 09/27/18 19:00 Plt Count 321 Th/cmm (150-400) 09/27/18 19:00 MPV 7.1 fl 09/27/18 19:00 Neutrophils % 62.4 % (40.0-80.0) 09/27/18 19:00 Lymphocytes % 21.8 % (20.0-50.0) 09/27/18 19:00 Monocytes % 10.2 % (2.0-10.0) H 09/27/18 19:00 Eosinophils % 4.8 % (0.0-5.0) 09/27/18 19:00 Basophils % 0.8 % (0.0-2.0) 09/27/18 19:00 Sodium 133 mEq/L (136-145) L 09/27/18 19:00 Potassium 3.8 mEq/L (3.5-5.1) 09/27/18 19:00 Chloride 98 mEq/L (98-107) 09/27/18 19:00 Carbon Dioxide 28.0 mEq/L (21.0-31.0) 09/27/18 19:00 Anion Gap 10.8 (7.0-16.0) 09/27/18 19:00 BUN 16 mg/dL (7-25) 09/27/18 19:00 Creatinine 0.7 mg/dL (0.6-1.2) 09/27/18 19:00 Est GFR ( Amer) > 60.0 ml/min (>90) 09/27/18 19: Est GFR (Non-Af Amer) > 60.0 ml/min 09/27/18 19: BUN/Creatinine Ratio 22.9 09/27/18 19: Glucose 107 mg/dL (70-105) H 09/27/18 19:00 Calcium 9.4 mg/dL (8.6-10.3) 09/27/18: Total Bilirubin 0.3 mg/dL (0.3-1.0) 09/27/18 19:00 AST 12 U/L (13-39) L 09/27/18 19:00 ALT 4 U/L (7-52) L 09/27/18 19:00 Alkaline Phosphatase 68 U/L (34-104) 09/27/18 19: Troponin I 0.01 ng/mL (0.01-0.05) 09/27/18 19:00 Total Protein 6.9 gm/dL (6.0-8.3) 09/27/18:00 Albumin 3.8 gm/dL (3.7-5.3) 09/27/18: Globulin 3.1 gm/dL 09/27/18 19: Albumin/Globulin Ratio 1.2 (1.0-1.8) 09/27/18 19:00 Triglycerides 153 mg/dL (<150) H 09/27/18 19:00 Cholesterol 133 mg/dL (<200) 09/27/18 19:00 LDL Cholesterol Direct 80 mg/dL (75-193) 09/27/18 19:00 HDL Cholesterol 34 mg/dL (23-92) 09/27/18 19: TSH 1.47 uIU/ml (0.34-5.60) 09/27/18 19:00 Salicylates < 25.0 mg/L (30.0-100.0) L 09/27/18 19: Acetaminophen < 10.0 ug/mL (10.0-30.0) L 09/27/18 19:00 Ethyl Alcohol < 10 mg/dL (0-10) 09/27/18 19:00 RPR NONREACTIVE (NONREACTIVE) 09/27/18 19:00 - Physical Exam Vitals and I&O: Vital Signs Temp 97.6 F 10/01/18 04:34 Pulse 66 10/01/18 08:42 Resp 18 10/01/18 04:34 BP 146/75 10/01/18 08:43 Pulse Ox 93 10/01/18 04:34 Intake & Output 09/30/18 10/01/18 10/01/18 18:59 06:59 18:59 Intake Total 1600 480 Balance 1600 480 Intake: Oral 1600 480 Other: # Voids 4 2 # Bowel Movements 0 Active Medications: Current Medications Acetaminophen (Tylenol) 650 mg PO Q4HR PRN PRN Reason: Mild Pain / Temp above 100 Stop: 11/26/18 21:49 Last Admin: 09/28/18 09:41 Dose: 650 mg Acetaminophen/Hydrocodone Bitart ([place] 5mg/325mg) 1 tab PO Q4H PRN PRN Reason: Pain (Severe) Stop: 11/28/18 14:43 Last Admin: 10/01/18 10:56 Dose: 1 tab Al Hydrox/Mg Hydrox/Simethicone (Maalox) 30 ml PO Q4HR PRN PRN Reason: GI DISTRESS Stop: 11/26/18 21:49 Albuterol Sulfate (Ventolin) 2 mg PO QID [facility] Stop: 11/27/18 08:59 Last Admin: 09/30/18 20:47 Dose: 2 mg Artificial Tears (Artificial Tears Ophth Soln) 1 drop EACH EYE BID [facility] Stop: 11/27/18 08:59 Last Admin: 09/30/18 16:12 Dose: Not Given Aspirin (Aspirin Chewable) 81 mg PO DAILY [facility] Stop: 11/27/18 08:59 Last Admin: 10/01/18 08:35 Dose: 81 mg Atorvastatin Calcium (Lipitor) 20 mg PO HS [facility] Stop: 11/27/18 20:59 Last Admin: 09/30/18 20:47 Dose: 20 mg Brimonidine Tartrate ([place]ph[place] 0.2% Ophth Soln) 1 drop EACH EYE BID [facility] Stop: 11/27/18 08:59 Last Admin: 09/30/18 16:12 Dose: Not Given Carbidopa/Levodopa (Sinemet 25mg-100 Mg) 1 tab PO TID [facility] Stop: 11/27/18 20:59 Last Admin: 10/01/18 08:40 Dose: 1 tab Carvedilol (Coreg) 3.125 mg PO BID [facility] Stop: 11/27/18 08:59 Last Admin: 10/01/18 08:41 Dose: 3.125 mg Cholecalciferol (Vitamin D3) 1,000 iu PO DAILY [facility] Stop: 11/27/18 08:59 Last Admin: 10/01/18 08:40 Dose: 1,000 iu Fluoxetine HCl (Prozac) 30 mg PO DAILY [facility]; Protocol Stop: 11/30/18 08:59 Last Admin: 10/01/18 08:40 Dose: 30 mg Furosemide (Lasix) 20 mg PO DAILY [facility] Stop: 11/27/18 08:59 Last Admin: 10/01/18 08:43 Dose: 20 mg Gabapentin (Neurontin) 300 mg PO Q8HR [facility] Stop: 11/27/18 04:59 Last Admin: 10/01/18 13:29 Dose: 300 mg Haloperidol Decanoate (Haldol Dec) 50 mg IM [id number] [facility]; Protocol Stop: 12/03/18 08:59 Lisinopril (Zestril) 20 mg PO BID [facility] Stop: 11/27/18 08:59 Last Admin: 10/01/18 08:42 Dose: 20 mg Lorazepam (Ativan) 0.5 mg PO Q6H PRN; Protocol PRN Reason: Anxiety Stop: 11/26/18 22:37 Last Admin: 10/01/18 13:29 Dose: 0.5 mg Olanzapine (Zyprexa) 10 mg PO 1700 [facility]; Protocol Stop: 11/30/18 16:59 Oxybutynin Chloride (Ditropan) 5 mg PO TID [facility] Stop: 11/27/18 08:59 Last Admin: 10/01/18 13:30 Dose: 5 mg Pantoprazole Sodium (Protonix) 40 mg PO QDAC [facility] Stop: 11/27/18 07:29 Last Admin: 10/01/18 06:37 Dose: Not Given Senna (Senna) 8.6 mg PO BID [facility] Stop: 11/27/18 08:59 Last Admin: 10/01/18 08:43 Dose: 8.6 mg Trazodone HCl (Desyrel) 50 mg PO HS [facility]; Protocol Stop: 11/27/18 20:59 Last Admin: 09/30/18 20:48 Dose: 50 mg Zolpidem Tartrate (Ambien) 5 mg PO HS PRN PRN Reason: Insomnia Stop: 11/26/18 21:49 Last Admin: 09/30/18 20:48 Dose: 5 mg General: alert HEENT: NC/AT, PERRLA, EOMI Neck: Supple, No JVD Lungs: congested Cardiovascular: RRR, Normal S1, Normal S2, with murmur Abdomen: soft, globular, positive bowel sound - Procedures Procedures: Procedures Procedure Code Date GROUP PSYCHOTHERAPY 62031 03/19/15 GROUP PSYCHOTHERAPY GZHZZZZ 03/19/15 OTHER GROUP THERAPY 94.44 07/28/10 RECREATIONAL THERAPY 93.81 07/28/10 Internal Medicine Assmt/Plan - Assessment Assessment: ASSESSMENT AND PLAN: Low back pain/spinal stenosis, anemia, hyponatremia, hypertension, chronic obstructive pulmonary disease, hypercholesterolemia, gastroesophageal reflux disease, coronary artery disease, Parkinson, - Plan Plan: PLAN: continue ___pain control. We will review the patient's medication. We may consider given the patient's adequate pain medications. The patient is following with pain management. Apparently getting narcotics. We will continue to follow patient with __dr waller__. We will titrate __bp__ medications. Monitor for any signs of fluid overload. We will follow closely.
[2018-10-01] MEDS: Atorvastatin Calcium 10 MG TAB PO SCH (20:53)
--- NOTE | 2018-10-01 21:01 | Progress Notes ---
DATE: 10/01/2018 SUBJECTIVE: Chart was reviewed and the patient interviewed. Also discussed the patient's condition with the staff and reviewed records and labs. The patient is still in a depressed mood. The patient also is still withdrawn and interacting minimally with peers and with others. She feels hopeless and helpless. She also is still talking about her desire not to return to [facility]. At the same time, the patient is denying any side effects of medications. ASSESSMENT: The patient is still in a depressed mood and needs close monitoring. TREATMENT PLAN: We will continue monitoring her behavior and her condition closely. Also, we will increase Prozac to 30 mg every day and we will increase Zyprexa to 10 mg at bedtime and will continue to follow up closely. [facility]# [id number]
[2018-10-02] MEDS: Pantoprazole 40 mg EC Tab PO SCH (06:41)
[2018-10-02] MEDS: Polyvinyl Alcohol Ophth Soln 15 mL Bottle EACH EYE SCH (08:09)
[2018-10-02] MEDS: Albuterol 2 mg/5 mL UDC PO SCH ×2 (08:10→13:47)
[2018-10-02] MEDS: Aspirin 81mg Chewable Tab PO SCH (08:10)
[2018-10-02] MEDS: Hydrocodone/APAP 5mg/325mg Tab PO PRN (08:53)
--- NOTE | 2018-10-02 13:00 | Internal Medicine Prog Note ---
Internal Medicine Subjective - Subjective Patient seen and examined:: with staff, chart reviewed Patient is:: awake, interactive, in wheelchair Patient Complaints of:: constipation Per staff patient has:: no adverse event, no episodes of fall Internal Medicine Objective - Results Result Diagrams: 09/27/18 19:00 09/27/18 19:00 Recent Labs: Laboratory Last Values WBC 7.4 Th/cmm (4.8-10.8) 09/27/18 19:00 RBC 4.68 Mil/cmm (3.80-5.20) 09/27/18 19:00 Hgb 11.5 gm/dL (12-16) L 09/27/18 19:00 Hct 34.9 % (41.0-60) L 09/27/18:00 MCV 74.6 fl (81-100) L 09/27/18 19:00 MCH 24.5 pg (27.0-31.0) L 09/27/18 19:00 MCHC Differential 32.9 pg (28.0-36.0) 09/27/18 19: RDW 20.6 % (11.5-20.0) H 09/27/18 19:00 Plt Count 321 Th/cmm (150-400) 09/27/18 19:00 MPV 7.1 fl 09/27/18 19:00 Neutrophils % 62.4 % (40.0-80.0) 09/27/18 19:00 Lymphocytes % 21.8 % (20.0-50.0) 09/27/18 19:00 Monocytes % 10.2 % (2.0-10.0) H 09/27/18 19:00 Eosinophils % 4.8 % (0.0-5.0) 09/27/18 19:00 Basophils % 0.8 % (0.0-2.0) 09/27/18 19:00 Sodium 133 mEq/L (136-145) L 09/27/18 19:00 Potassium 3.8 mEq/L (3.5-5.1) 09/27/18 19:00 Chloride 98 mEq/L (98-107) 09/27/18 19:00 Carbon Dioxide 28.0 mEq/L (21.0-31.0) 09/27/18 19:00 Anion Gap 10.8 (7.0-16.0) 09/27/18 19:00 BUN 16 mg/dL (7-25) 09/27/18 19:00 Creatinine 0.7 mg/dL (0.6-1.2) 09/27/18 19:00 Est GFR ( Amer) > 60.0 ml/min (>90) 09/27/18 19: Est GFR (Non-Af Amer) > 60.0 ml/min 09/27/18 19: BUN/Creatinine Ratio 22.9 09/27/18 19: Glucose 107 mg/dL (70-105) H 09/27/18 19:00 Calcium 9.4 mg/dL (8.6-10.3) 09/27/18: Total Bilirubin 0.3 mg/dL (0.3-1.0) 09/27/18 19:00 AST 12 U/L (13-39) L 09/27/18 19:00 ALT 4 U/L (7-52) L 09/27/18 19:00 Alkaline Phosphatase 68 U/L (34-104) 09/27/18 19: Troponin I 0.01 ng/mL (0.01-0.05) 09/27/18 19:00 Total Protein 6.9 gm/dL (6.0-8.3) 09/27/18:00 Albumin 3.8 gm/dL (3.7-5.3) 09/27/18: Globulin 3.1 gm/dL 09/27/18 19: Albumin/Globulin Ratio 1.2 (1.0-1.8) 09/27/18 19:00 Triglycerides 153 mg/dL (<150) H 09/27/18 19:00 Cholesterol 133 mg/dL (<200) 09/27/18 19:00 LDL Cholesterol Direct 80 mg/dL (75-193) 09/27/18 19:00 HDL Cholesterol 34 mg/dL (23-92) 09/27/18 19: TSH 1.47 uIU/ml (0.34-5.60) 09/27/18 19:00 Salicylates < 25.0 mg/L (30.0-100.0) L 09/27/18 19: Acetaminophen < 10.0 ug/mL (10.0-30.0) L 09/27/18 19:00 Ethyl Alcohol < 10 mg/dL (0-10) 09/27/18 19:00 RPR NONREACTIVE (NONREACTIVE) 09/27/18 19:00 - Physical Exam Vitals and I&O: Vital Signs Temp 97.6 F 10/02/18 12:21 Pulse 66 10/02/18 12:21 Resp 18 10/02/18 12:21 BP 145/75 10/02/18 12:21 Pulse Ox 93 10/02/18 12:21 Intake & Output 10/01/18 10/02/18 10/02/18 18:59 06:59 18:59 Intake Total 1350 240 Balance 1350 240 Intake: Oral 1350 240 Other: # Voids 2 # Bowel Movements 1 Active Medications: Current Medications Acetaminophen (Tylenol) 650 mg PO Q4HR PRN PRN Reason: Mild Pain / Temp above 100 Stop: 11/26/18 21:49 Last Admin: 09/28/18 09:41 Dose: 650 mg Acetaminophen/Hydrocodone Bitart ([place] 5mg/325mg) 1 tab PO Q4H PRN PRN Reason: Pain (Severe) Stop: 11/28/18 14:43 Last Admin: 10/02/18 08:53 Dose: 1 tab Al Hydrox/Mg Hydrox/Simethicone (Maalox) 30 ml PO Q4HR PRN PRN Reason: GI DISTRESS Stop: 11/26/18 21:49 Albuterol Sulfate (Ventolin) 2 mg PO QID [facility] Stop: 11/27/18 08:59 Last Admin: 10/02/18 08:10 Dose: 2 mg Artificial Tears (Artificial Tears Ophth Soln) 1 drop EACH EYE BID [facility] Stop: 11/27/18 08:59 Last Admin: 10/02/18 08:09 Dose: 1 drop Aspirin (Aspirin Chewable) 81 mg PO DAILY [facility] Stop: 11/27/18 08:59 Last Admin: 10/02/18 08:10 Dose: 81 mg Atorvastatin Calcium (Lipitor) 20 mg PO HS [facility] Stop: 11/27/18 20:59 Last Admin: 10/01/18 20:53 Dose: 20 mg Brimonidine Tartrate ([place] 0.2% Ophth Soln) 1 drop EACH EYE BID [facility] Stop: 11/27/18 08:59 Last Admin: 10/02/18 08:09 Dose: 1 drop Carbidopa/Levodopa (Sinemet 25mg-100 Mg) 1 tab PO TID [facility] Stop: 11/27/18 20:59 Last Admin: 10/02/18 08:10 Dose: 1 tab Carvedilol (Coreg) 3.125 mg PO BID [facility] Stop: 11/27/18 08:59 Last Admin: 10/02/18 08:10 Dose: 3.125 mg Cholecalciferol (Vitamin D3) 1,000 iu PO DAILY [facility] Stop: 11/27/18 08:59 Last Admin: 10/02/18 08:11 Dose: 1,000 iu Fluoxetine HCl (Prozac) 30 mg PO DAILY [facility]; Protocol Stop: 11/30/18 08:59 Last Admin: 10/02/18 08:11 Dose: 30 mg Furosemide (Lasix) 20 mg PO DAILY [facility] Stop: 11/27/18 08:59 Last Admin: 10/02/18 08:11 Dose: 20 mg Gabapentin (Neurontin) 300 mg PO Q8HR [facility] Stop: 11/27/18 04:59 Last Admin: 10/02/18 05:10 Dose: 300 mg Haloperidol Decanoate (Haldol Dec) 50 mg IM [id number] [facility]; Protocol Stop: 12/03/18 08:59 Lisinopril (Zestril) 20 mg PO BID [facility] Stop: 11/27/18 08:59 Last Admin: 10/02/18 09:01 Dose: 20 mg Lorazepam (Ativan) 0.5 mg PO Q6H PRN; Protocol PRN Reason: Anxiety Stop: 11/26/18 22:37 Last Admin: 10/01/18 20:55 Dose: 0.5 mg Olanzapine (Zyprexa) 10 mg PO 1700 [facility]; Protocol Stop: 11/30/18 16:59 Oxybutynin Chloride (Ditropan) 5 mg PO TID [facility] Stop: 11/27/18 08:59 Last Admin: 10/02/18 08:52 Dose: 5 mg Pantoprazole Sodium (Protonix) 40 mg PO QDAC [facility] Stop: 11/27/18 07:29 Last Admin: 10/02/18 06:41 Dose: 40 mg Senna (Senna) 8.6 mg PO BID [facility] Stop: 11/27/18 08:59 Last Admin: 10/02/18 08:10 Dose: 8.6 mg Trazodone HCl (Desyrel) 50 mg PO HS [facility]; Protocol Stop: 11/27/18 20:59 Last Admin: 10/01/18 20:54 Dose: 50 mg Zolpidem Tartrate (Ambien) 5 mg PO HS PRN PRN Reason: Insomnia Stop: 11/26/18 21:49 Last Admin: 10/01/18 23:12 Dose: 5 mg General: alert HEENT: NC/AT, PERRLA, EOMI Neck: Supple, No JVD Lungs: congested Cardiovascular: RRR, Normal S1, Normal S2, with murmur Abdomen: soft, globular, positive bowel sound - Procedures Procedures: Procedures Procedure Code Date GROUP PSYCHOTHERAPY 92333 03/19/15 GROUP PSYCHOTHERAPY [id number] 03/19/15 OTHER GROUP THERAPY 94.44 07/28/10 RECREATIONAL THERAPY 93.81 07/28/10 Internal Medicine Assmt/Plan - Assessment Assessment: ASSESSMENT AND PLAN: Low back pain/spinal stenosis, anemia, hyponatremia, hypertension, chronic obstructive pulmonary disease, hypercholesterolemia, gastroesophageal reflux disease, coronary artery disease, Parkinson, - Plan Plan: PLAN: continue ___pain control. We will review the patient's medication. We may consider given the patient's adequate pain medications. The patient is following with pain management. Apparently getting narcotics. We will continue to follow patient with __dr waller__. We will titrate __bp__ medications. Monitor for any signs of fluid overload. We will follow closely.
--- NOTE | 2018-10-03 19:55 | Discharge Summary ---
DATE OF DISCHARGE: 10/02/2018 AGE: 68 SEX: Female. PHYSICIAN: Dr. Trinidad. FINAL DIAGNOSES: PRIMARY DIAGNOSES: Schizoaffective disorder, depressed episode, severe, without psychotic features. REASON FOR HOSPITALIZATION: The patient was transferred from [facility] because of increased depression and suicidal ideation with no specific plans and she has been agitative and with increased mood swings. HOSPITAL COURSE: The patient continued to be in a depressed mood and anxious. The patient also was feeling hopeless and helpless. The patient also wanted to be left alone in the first couple of days of her hospitalization. The patient continues to take the gabapentin in a dose of 300 mg every 8 hours. Also, she was taking Haldol Decanoate injections every 2 weeks. The patient also continued to take Prozac and the dose increased to 30 mg every day. Gradually, the patient's affect was brighter. The patient was less irritable and less agitated. She interacted more with peers and with others. Since the patient was not suicidal or homicidal, the patient was discharged from the hospital back to [facility]. PHYSICAL EXAMINATION: Physical exam of the patient's show no major medical problems. Blood workup was also basically within normal. AFTER-DISCHARGE PLANS: The patient discharged from the hospital with plans to continue her treatment in [facility]. EXPECTED OUTCOME AFTER DISCHARGE: Fair, if the patient continues with psychotropic medications and follow up with discharge plans. [facility]# [id number]
== END 2018-10-02 15:15 | DRG 885 ==
LOC: ER 18:20 → GERO2 19:40
PROVIDERS: ADMIT Psychiatry & Neurology Psychiatry; ATTEND Psychiatry & Neurology Psychiatry
DX: F25.1 Schizoaffective disorder, depressive type (principal); I10 Essential (primary) hypertension; J44.9 Chronic obstructive pulmonary disease, unspecified; E78.5 Hyperlipidemia, unspecified; K21.9 Gastro-esophageal reflux disease without esophagitis; G20 Parkinson's disease; F02.80 Dementia in other diseases classified elsewhere, unspecified severity, without behavioral disturbance, psychotic disturbance, mood disturbance, and anxiety; F31.9 Bipolar disorder, unspecified; E78.00 Pure hypercholesterolemia, unspecified; I25.10 Atherosclerotic heart disease of native coronary artery without angina pectoris; M48.00 Spinal stenosis, site unspecified; D64.9 Anemia, unspecified; F41.9 Anxiety disorder, unspecified
CPT/HCPCS: 36415-UA; 80053-TC; 80061-TC; 80320-TC; 80329-TC; 83036-90; 84443-TC; 84484-TC; 85025-TC; 86592-TC; 93005; J7051; Z7610

== ENCOUNTER 2018-12-08 14:38 | Inpatient (IN) | payer MEDICARE, MEDICAID ==
[2018-12-08 22:31] VITALS: BP 158/91
[2018-12-08] MEDS ORDERED: Magnesium Hydroxide (MOM) 30 mL UDC PO PRN (22:31)
[2018-12-09] MEDS: Pantoprazole 40 mg EC Tab PO SCH (06:45)
[2018-12-09] MEDS: Aspirin 81mg Chewable Tab PO SCH (08:34)
[2018-12-09] MEDS: Polyvinyl Alcohol Ophth Soln 15 mL Bottle EACH EYE SCH ×2 (09:38→16:44)
[2018-12-09] MEDS: Hydrocodone/APAP 5mg/325mg Tab PO PRN (09:50)
--- NOTE | 2018-12-09 17:00 | History & Physical ---
ADMIT DATE: 12/09/2018 CHIEF COMPLAINT: Transferred from acute hospital to the Geropsych Unit for continuation of psychiatric management. HISTORY OF PRESENT ILLNESS: This is a 68-year-old female who was transferred from [facility] due to suicidal ideation. The patient is also a resident of [facility]. For psychiatric management, the patient is admitted here to the Geropsych Unit. PAST MEDICAL HISTORY: Hypertension, COPD, GERD, Parkinson, polyneuropathy, anemia, hyperlipidemia, PUD, overactive bladder, major depressive disorder, schizophrenia. PAST SURGICAL HISTORY: Unknown. ALLERGIES: No known allergies. SOCIAL HISTORY: The patient is a care home resident at [facility]. FAMILY HISTORY: Noncontributory. REVIEW OF SYSTEMS: GENERAL: Denies any fever or chills. CARDIOVASCULAR: Denies chest pain. RESPIRATORY: Denies shortness of breath. GASTROINTESTINAL: Denies nausea, vomiting, abdominal pain. GENITOURINARY: Denies increased frequency or dysuria. NEUROLOGIC: Denies headaches, seizures, or syncope. All systems reviewed and negative. PHYSICAL EXAMINATION: GENERAL: The patient is well-developed, well-nourished, in no apparent distress. VITAL SIGNS: Temperature 97.6, heart rate 67, blood pressure 131/76, respirations 20, O2 96%. HEENT: Head normocephalic, atraumatic. NECK: Supple. No mass. LUNGS: Clear bilaterally. HEART: Regular rhythm. ABDOMEN: Soft, nontender. ASSESSMENT: Suicidal ideation, hypertension, chronic obstructive pulmonary disease, gastroesophageal reflux disease, parkinsons, polyneuropathy, anemia, hyperlipidemia, peptic ulcer disease, overactive bladder, major depressive disorder and schizophrenia. PLAN: We will continue the patient's home medications. Supplemental oxygen as needed and respiratory treatments as needed. Continue patient's home medications. We will continue to monitor this patient. JOB# [id number]
[2018-12-09] MEDS: Atorvastatin Calcium 10 MG TAB PO SCH (20:50)
--- NOTE | 2018-12-10 | Psychiatric Evaluation ---
DATE OF SERVICE: 12/08/2018 PSYCHIATRIC INITIAL EVALUATION AND MENTAL STATUS EXAM AGE: 68. SEX: Female. PHYSICIAN: Dr. Trinidad. CHIEF COMPLAINT: Depression and suicidal ideations. HISTORY OF PRESENT ILLNESS: The patient is a 68-year-old female who was transferred from [facility] because of increased depression and because of suicidal ideations. The patient said that she has been feeling hopeless and helpless and wants to . The patient said that she does not like living in [facility] that she has been living there for several years. She has been also feeling worthless and that her life is not worth it and that is why she should . The patient started to have thoughts of suicide. The patient was transferred to the hospital to close monitoring her condition. PAST PSYCHIATRIC HISTORY: The patient has history of schizoaffective disorder. PAST MEDICAL HISTORY: The patient has hypertension as well as hyperlipidemia, overactive bladder as well as muscle weakness. SOCIAL HISTORY: The patient lives in [facility]. The patient denies any alcohol or any street drug use, but she has history of polysubstance dependence. ALLERGIES: No known allergies. MENTAL STATUS EXAMINATION: The patient appears her stated age. Anxious. Depressed mood. Flat affect. Thought process is mainly goal directed. The patient denied hallucinations, but seems to be suspicious and paranoid. The patient admits to suicidal ideations, but denies homicidal ideations. The patient is alert and oriented to time, place, person, and situation. Intact, immediate, recent and remote memories. Poor insight and judgment. Seems to be of average intelligence based on her verbal ability. ASSESSMENT: PRIMARY DIAGNOSIS: Schizoaffective disorder, depressed type, severe, with psychotic features. TREATMENT PLAN: We will monitor the patient's behavior closely because of her suicidal ideations. We will start individual as well as milieu psychotherapy. We will monitor psychotropic medications. ESTIMATED LENGTH OF STAY: 5-7 days. PATIENT'S STRENGTHS AND WEAKNESSES: The patient's strength is that she is in relatively fair health. She is compliant with taking medications. Weaknesses is her ineffective coping. AFTER DISCHARGE PLAN: Outpatient treatment and followup will continue as an outpatient. CRITERIA FOR DISCHARGE: The patient will not be suicidal and will stabilize psychotropic medications and will establish outpatient treatment plans. [facility]# [id number]
[2018-12-10] MEDS: Pantoprazole 40 mg EC Tab PO SCH (06:53)
[2018-12-10] MEDS: Aspirin 81mg Chewable Tab PO SCH (08:51)
[2018-12-10] MEDS: Polyvinyl Alcohol Ophth Soln 15 mL Bottle EACH EYE SCH ×2 (08:52→16:33)
[2018-12-10] MEDS: Hydrocodone/APAP 5mg/325mg Tab PO PRN ×2 (10:11→19:53)
--- NOTE | 2018-12-10 15:25 | Internal Medicine Prog Note ---
Internal Medicine Subjective - Subjective Service Date: 12/10/18 (c/o uti ) Patient seen and examined:: with staff Patient is:: awake, verbal Per staff patient has:: tolerating meds Internal Medicine Objective - Physical Exam Vitals and I&O: Vital Signs Temp 97.1 F 12/10/18 14:03 Pulse 67 12/10/18 14:03 Resp 18 12/10/18 14:03 BP 145/76 12/10/18 14:03 Pulse Ox 91 12/10/18 14:03 Intake & Output 12/09/18 12/10/18 12/10/18 18:59 06:59 18:59 Intake Total 120 Balance 120 Intake: Oral 120 Other: # Voids 3 2 # Bowel Movements 0 Active Medications: Current Medications Acetaminophen/Hydrocodone Bitart ([place] 5mg/325mg) 1 tab PO Q8H PRN PRN Reason: Pain (Severe) Stop: 02/07/19 08:58 Last Admin: 12/10/18 10:11 Dose: 1 tab Artificial Tears (Artificial Tears Ophth Soln) 1 drop EACH EYE BID [facility] Stop: 02/07/19 08:59 Last Admin: 12/10/18 08:52 Dose: 1 drop Aspirin (Aspirin Chewable) 81 mg PO DAILY [facility] Stop: 02/07/19 08:59 Last Admin: 12/10/18 08:51 Dose: 81 mg Atorvastatin Calcium (Lipitor) 20 mg PO HS [facility]; Protocol Stop: 02/07/19 20:59 Last Admin: 12/09/18 20:50 Dose: 20 mg Brimonidine Tartrate (Alphagan 0.2% Ophth Soln) 1 drop EACH EYE BID [facility] Stop: 02/07/19 08:59 Last Admin: 12/10/18 08:52 Dose: 1 drop Carbidopa/Levodopa (Sinemet 25mg-100 Mg) 1 tab PO TID [facility] Stop: 02/07/19 08:59 Last Admin: 12/10/18 14:00 Dose: 1 tab Carvedilol (Coreg) 3.125 mg PO BID [facility] Stop: 02/07/19 08:59 Last Admin: 12/10/18 08:51 Dose: 3.125 mg Cholecalciferol (Vitamin D3) 1,000 iu PO DAILY [facility] Stop: 02/07/19 08:59 Last Admin: 12/10/18 08:47 Dose: 1,000 iu Fluoxetine HCl 20 mg/ (Fluoxetine HCl 10 mg) 30 mg PO DAILY [facility] Stop: 02/07/19 08:59 Last Admin: 12/10/18 08:48 Dose: 30 mg Furosemide (Lasix) 20 mg PO DAILY [facility] Stop: 02/07/19 08:59 Last Admin: 12/10/18 08:49 Dose: 20 mg Gabapentin (Neurontin) 300 mg PO TID [facility] Stop: 02/07/19 08:59 Last Admin: 12/10/18 14:00 Dose: 300 mg Haloperidol Decanoate (Haldol Dec) 50 mg IM [id number] [facility] Stop: 02/07/19 12:29 Last Admin: 12/09/18 12:53 Dose: Not Given Lisinopril (Zestril) 20 mg PO BID [facility] Stop: 02/07/19 08:59 Last Admin: 12/10/18 08:50 Dose: 20 mg Lorazepam (Ativan) 0.5 mg PO Q4HR PRN; Protocol PRN Reason: Anxiety Stop: 01/07/19 22:30 Last Admin: 12/10/18 14:54 Dose: 0.5 mg Magnesium Hydroxide (Milk Of Magnesia) 30 ml PO HS PRN PRN Reason: Constipation Mupirocin (Bactroban Oint) 1 appl NS BID [facility] Stop: 12/15/18 09:01 Olanzapine (Zyprexa) 10 mg PO DAILY [facility]; Protocol Stop: 02/07/19 08:59 Last Admin: 12/10/18 08:48 Dose: 10 mg Oxybutynin Chloride (Ditropan) 5 mg PO TID [facility] Stop: 02/07/19 08:59 Last Admin: 12/10/18 14:00 Dose: 5 mg Pantoprazole Sodium (Protonix) 40 mg PO 0700 [facility] Stop: 02/07/19 06:59 Last Admin: 12/10/18 06:53 Dose: 40 mg Senna (Senna) 8.6 mg PO BID [facility] Stop: 02/07/19 08:59 Last Admin: 12/10/18 08:51 Dose: 8.6 mg Trazodone HCl (Desyrel) 50 mg PO HS [facility]; Protocol Stop: 02/07/19 20:59 Last Admin: 09/21/19 20:51 Dose: 50 mg General: alert HEENT: NC/AT, PERRLA Neck: Supple Lungs: CTAB Cardiovascular: RRR, Normal S1, Normal S2, without murmur Abdomen: soft, non-tender, non-distended, positive bowel sound Extremities: excoriation Neurological: alert - Procedures Procedures: Procedures Procedure Code Date GROUP PSYCHOTHERAPY 85778 03/19/15 GROUP PSYCHOTHERAPY GZHZZZZ 03/19/15 OTHER GROUP THERAPY 94.44 07/28/10 RECREATIONAL THERAPY 93.81 07/28/10 Internal Medicine Assmt/Plan - Assessment Assessment: ASSESSMENT: Suicidal ideation, hypertension, chronic obstructive pulmonary disease, gastroesophageal reflux disease, parkinsons, polyneuropathy, anemia, hyperlipidemia, peptic ulcer disease, overactive bladder, major depressive disorder and schizophrenia. - Plan Plan: collect ua fall precautions continue current home meds continue current plan of care
[2018-12-10] MEDS: Atorvastatin Calcium 10 MG TAB PO SCH (21:15)
--- NOTE | 2018-12-11 01:47 | Progress Notes ---
DATE: 12/10/2018 SUBJECTIVE: Chart reviewed and the patient interviewed. Also discussed the patient's condition with the staff and reviewed records and labs. The patient is still anxious and is still in a depressed mood. The patient also is still easily irritable and easily agitated. She also continued to express her anger for living in [facility]. At the same time, the patient is calm and cooperative most of the times. She still has thoughts of suicide, but denies any homicidal ideations. ASSESSMENT: The patient is still depressed and psychotic. TREATMENT PLAN: Continue to monitor behavior and condition closely. Also, continue adjusting psychotropic medications and working on her depression and ineffective coping. JOB# [id number]
[2018-12-11] MEDS: Pantoprazole 40 mg EC Tab PO SCH (06:41)
[2018-12-11] MEDS: Aspirin 81mg Chewable Tab PO SCH (08:36)
[2018-12-11] MEDS: Polyvinyl Alcohol Ophth Soln 15 mL Bottle EACH EYE SCH ×2 (08:37→18:04)
[2018-12-11] MEDS: Hydrocodone/APAP 5mg/325mg Tab PO PRN (08:50)
--- NOTE | 2018-12-11 12:49 | Internal Medicine Prog Note ---
Internal Medicine Subjective - Subjective Patient seen and examined:: with staff, chart reviewed Patient is:: awake, verbal, interactive, in bed Patient Complaints of:: other (lbp) Per staff patient has:: no adverse event, poor appetite, unstable gait, tolerating meds Internal Medicine Objective - Physical Exam Vitals and I&O: Vital Signs Temp 97 F 12/11/18 06:48 Pulse 70 12/11/18 08:36 Resp 19 12/11/18 08:00 BP 181/83 12/11/18 08:36 Pulse Ox 96 12/11/18 06:48 Intake & Output 12/10/18 12/11/18 12/11/18 18:59 06:59 18:59 Intake Total 120 120 Balance 120 120 Intake: Oral 120 120 Other: # Voids 3 3 # Bowel Movements 1 Active Medications: Current Medications Acetaminophen/Hydrocodone Bitart ([place] 5mg/325mg) 1 tab PO Q8H PRN PRN Reason: Pain (Severe) Stop: 02/07/19 08:58 Last Admin: 12/11/18 08:50 Dose: 1 tab Artificial Tears (Artificial Tears Ophth Soln) 1 drop EACH EYE BID [facility] Stop: 02/07/19 08:59 Last Admin: 12/11/18 08:37 Dose: 1 drop Aspirin (Aspirin Chewable) 81 mg PO DAILY [facility] Stop: 02/07/19 08:59 Last Admin: 12/11/18 08:36 Dose: 81 mg Atorvastatin Calcium (Lipitor) 20 mg PO HS [facility]; Protocol Stop: 02/07/19 20:59 Last Admin: 12/10/18 21:15 Dose: 20 mg Brimonidine Tartrate (Alphagan 0.2% Ophth Soln) 1 drop EACH EYE BID [facility] Stop: 02/07/19 08:59 Last Admin: 12/11/18 08:38 Dose: 1 drop Carbidopa/Levodopa (Sinemet 25mg-100 Mg) 1 tab PO TID [facility] Stop: 02/07/19 08:59 Last Admin: 12/11/18 08:35 Dose: 1 tab Carvedilol (Coreg) 3.125 mg PO BID [facility] Stop: 02/07/19 08:59 Last Admin: 12/11/18 08:35 Dose: 3.125 mg Cholecalciferol (Vitamin D3) 1,000 iu PO DAILY [facility] Stop: 02/07/19 08:59 Last Admin: 12/11/18 08:36 Dose: 1,000 iu Fluoxetine HCl (Prozac) 40 mg PO DAILY [facility] Stop: 02/09/19 10:29 Last Admin: 12/11/18 10:47 Dose: 40 mg Furosemide (Lasix) 20 mg PO DAILY [facility] Stop: 02/07/19 08:59 Last Admin: 12/11/18 08:36 Dose: 20 mg Gabapentin (Neurontin) 300 mg PO TID [facility] Stop: 02/07/19 08:59 Last Admin: 12/11/18 08:34 Dose: 300 mg Haloperidol Decanoate (Haldol Dec) 50 mg IM [id number] [facility] Stop: 02/07/19 12:29 Last Admin: 12/09/18 12:53 Dose: Not Given Levofloxacin (Levaquin) 500 mg PO DAILY [facility] Stop: 12/16/18 09:01 Last Admin: 12/11/18 08:35 Dose: 500 mg Lisinopril (Zestril) 20 mg PO BID [facility] Stop: 02/07/19 08:59 Last Admin: 12/11/18 08:36 Dose: 20 mg Lorazepam (Ativan) 0.5 mg PO Q4HR PRN; Protocol PRN Reason: Anxiety Stop: 01/07/19 22:30 Last Admin: 12/11/18 11:48 Dose: 0.5 mg Magnesium Hydroxide (Milk Of Magnesia) 30 ml PO HS PRN PRN Reason: Constipation Mupirocin (Bactroban Oint) 1 appl NS BID [facility] Stop: 12/15/18 09:01 Last Admin: 12/11/18 08:37 Dose: 1 appl Olanzapine (Zyprexa) 10 mg PO DAILY [facility]; Protocol Stop: 02/07/19 08:59 Last Admin: 12/11/18 08:34 Dose: 10 mg Oxybutynin Chloride (Ditropan) 5 mg PO TID [facility] Stop: 02/07/19 08:59 Last Admin: 12/11/18 08:35 Dose: 5 mg Pantoprazole Sodium (Protonix) 40 mg PO 0700 [facility] Stop: 02/07/19 06:59 Last Admin: 12/11/18 06:41 Dose: 40 mg Senna (Senna) 8.6 mg PO BID [facility] Stop: 02/07/19 08:59 Last Admin: 12/11/18 08:36 Dose: 8.6 mg Trazodone HCl (Desyrel) 50 mg PO HS [facility]; Protocol Stop: 02/07/19 20:59 Last Admin: 12/10/18 21:15 Dose: 50 mg General: alert HEENT: NC/AT, PERRLA Neck: Supple Lungs: CTAB Cardiovascular: RRR, Normal S1, Normal S2, without murmur Abdomen: soft, non-tender, non-distended, positive bowel sound Extremities: excoriation Neurological: alert, unsteady - Procedures Procedures: Procedures Procedure Code Date GROUP PSYCHOTHERAPY 64826 03/19/15 GROUP PSYCHOTHERAPY GZHZZZZ 03/19/15 OTHER GROUP THERAPY 94.44 07/28/10 RECREATIONAL THERAPY 93.81 07/28/10 Internal Medicine Assmt/Plan - Assessment Assessment: ASSESSMENT: hypertension, chronic obstructive pulmonary disease, gastroesophageal reflux disease, parkinsons, polyneuropathy, anemia, hyperlipidemia, peptic ulcer disease, overactive bladder, major depressive disorder and schizophrenia.lbp - Plan Plan: PLAN: We will continue the patient's home medications. Supplemental oxygen as needed and respiratory treatments as needed. Continue patient's home medications. We will continue to monitor this patient. nsaids prn
[2018-12-11] MEDS: Atorvastatin Calcium 10 MG TAB PO SCH (20:10)
--- NOTE | 2018-12-11 23:08 | Progress Notes ---
DATE: 12/11/2018 SUBJECTIVE: Chart reviewed and the patient interviewed. Also discussed the patient's condition with the staff and reviewed records and labs. The patient said "I fluctuate." The patient said that she would not mind going back to [place] and that she is fluctuating, at times wants to live there and others does not want to stay there. The patient also is still anxious and restless and pacing up and down the unit. Also, difficulty sleeping at night. The patient also is slightly confused and paranoid. Otherwise, the patient is compliant with taking her medications with no side effects of medications. ASSESSMENT: The patient is still depressed and high risk of suicide and also psychotic. TREATMENT PLAN: Continue to monitor her behavior and her condition. Also, we will change Prozac to 40 mg every day and we will continue to follow up. JOB# [id number]
--- NOTE | 2018-12-12 06:23 | Progress Notes ---
DATE: 12/12/2018 PSYCHIATRIC PROGRESS NOTE SUBJECTIVE: Chart reviewed and the patient interviewed. Also discussed the patient's condition with the staff and reviewed records and labs. The patient remains in a depressed mood and she is still anxious. The patient also is still guarded and withdrawn. The patient also still has difficulty making up her mind in regard to returning to [place] or not and "I fluctuate." She is still isolative and withdrawn and at the same time restless and anxious. Otherwise, the patient is compliant with taking her medications and Prozac was increased yesterday with no side effects. ASSESSMENT: The patient is still depressed. TREATMENT PLAN: We will continue monitoring her behavior and her condition. Also, continue to work on her ineffective coping and continue to follow up closely. [facility]# [id number]
[2018-12-12] MEDS: Pantoprazole 40 mg EC Tab PO SCH (06:49)
[2018-12-12] MEDS: Hydrocodone/APAP 5mg/325mg Tab PO PRN ×2 (08:49→17:59)
[2018-12-12] MEDS: Aspirin 81mg Chewable Tab PO SCH (08:50)
[2018-12-12] MEDS: Polyvinyl Alcohol Ophth Soln 15 mL Bottle EACH EYE SCH ×2 (09:59→17:52)
--- NOTE | 2018-12-12 12:52 | Internal Medicine Prog Note ---
Internal Medicine Subjective - Subjective Patient seen and examined:: with staff, chart reviewed Patient is:: awake, verbal, interactive, in bed Patient Complaints of:: other (lbp) Per staff patient has:: no adverse event, poor appetite, unstable gait, tolerating meds Internal Medicine Objective - Physical Exam Vitals and I&O: Vital Signs Temp 98.1 F 12/12/18 05:59 Pulse 61 12/12/18 08:50 Resp 18 12/12/18 05:59 BP 142/70 12/12/18 08:50 Pulse Ox 93 12/12/18 05:59 Intake & Output 12/11/18 12/12/18 12/12/18 18:59 06:59 18:59 Intake Total 1000 60 Balance 1000 60 Intake: Oral 1000 60 Other: # Voids 4 2 # Bowel Movements 1 0 Active Medications: Current Medications Acetaminophen/Hydrocodone Bitart ([place] 5mg/325mg) 1 tab PO Q8H PRN PRN Reason: Pain (Severe) Stop: 02/07/19 08:58 Last Admin: 12/12/18 08:49 Dose: 1 tab Artificial Tears (Artificial Tears Ophth Soln) 1 drop EACH EYE BID [facility] Stop: 02/07/19 08:59 Last Admin: 12/12/18 09:59 Dose: 1 drop Aspirin (Aspirin Chewable) 81 mg PO DAILY [facility] Stop: 02/07/19 08:59 Last Admin: 12/12/18 08:50 Dose: 81 mg Atorvastatin Calcium (Lipitor) 20 mg PO HS [facility]; Protocol Stop: 02/07/19 20:59 Last Admin: 12/11/18 20:10 Dose: 20 mg Brimonidine Tartrate (Alphagan 0.2% Ophth Soln) 1 drop EACH EYE BID [facility] Stop: 02/07/19 08:59 Last Admin: 12/12/18 09:59 Dose: 1 drop Carbidopa/Levodopa (Sinemet 25mg-100 Mg) 1 tab PO TID [facility] Stop: 02/07/19 08:59 Last Admin: 12/12/18 08:49 Dose: 1 tab Carvedilol (Coreg) 3.125 mg PO BID [facility] Stop: 02/07/19 08:59 Last Admin: 12/12/18 08:48 Dose: 3.125 mg Cholecalciferol (Vitamin D3) 1,000 iu PO DAILY [facility] Stop: 02/07/19 08:59 Last Admin: 12/12/18 08:49 Dose: 1,000 iu Fluoxetine HCl (Prozac) 40 mg PO DAILY [facility] Stop: 02/09/19 10:29 Last Admin: 12/12/18 08:48 Dose: 40 mg Furosemide (Lasix) 20 mg PO DAILY [facility] Stop: 02/07/19 08:59 Last Admin: 12/12/18 08:49 Dose: 20 mg Gabapentin (Neurontin) 300 mg PO TID [facility] Stop: 02/07/19 08:59 Last Admin: 12/12/18 08:49 Dose: 300 mg Haloperidol Decanoate (Haldol Dec) 50 mg IM [id number] Stop: 02/07/19 12:29 Last Admin: 12/09/18 12:53 Dose: Not Given Levofloxacin (Levaquin) 500 mg PO DAILY [facility] Stop: 12/16/18 09:01 Last Admin: 12/12/18 08:51 Dose: 500 mg Lisinopril (Zestril) 20 mg PO BID [facility] Stop: 02/07/19 08:59 Last Admin: 12/12/18 08:50 Dose: 20 mg Lorazepam (Ativan) 0.5 mg PO Q4HR PRN; Protocol PRN Reason: Anxiety Stop: 01/07/19 22:30 Last Admin: 12/12/18 09:50 Dose: 0.5 mg Magnesium Hydroxide (Milk Of Magnesia) 30 ml PO HS PRN PRN Reason: Constipation Mupirocin (Bactroban Oint) 1 appl NS BID [facility] Stop: 12/15/18 09:01 Last Admin: 12/12/18 09:59 Dose: 1 appl Olanzapine (Zyprexa) 10 mg PO DAILY [facility]; Protocol Stop: 02/07/19 08:59 Last Admin: 12/12/18 08:48 Dose: 10 mg Oxybutynin Chloride (Ditropan) 5 mg PO TID [facility] Stop: 02/07/19 08:59 Last Admin: 12/12/18 08:50 Dose: 5 mg Pantoprazole Sodium (Protonix) 40 mg PO 0700 [facility] Stop: 02/07/19 06:59 Last Admin: 12/12/18 06:49 Dose: 40 mg Senna (Senna) 8.6 mg PO BID [facility] Stop: 02/07/19 08:59 Last Admin: 12/12/18 08:50 Dose: 8.6 mg Trazodone HCl (Desyrel) 50 mg PO HS [facility]; Protocol Stop: 02/07/19 20:59 Last Admin: 12/11/18 20:10 Dose: 50 mg General: alert HEENT: NC/AT, PERRLA Neck: Supple Lungs: CTAB Cardiovascular: RRR, Normal S1, Normal S2, without murmur Abdomen: soft, non-tender, non-distended, positive bowel sound Extremities: excoriation Neurological: alert, unsteady - Procedures Procedures: Procedures Procedure Code Date GROUP PSYCHOTHERAPY 23637 03/19/15 GROUP PSYCHOTHERAPY GZHZZZZ 03/19/15 OTHER GROUP THERAPY 94.44 07/28/10 RECREATIONAL THERAPY 93.81 07/28/10 Internal Medicine Assmt/Plan - Assessment Assessment: ASSESSMENT: hypertension, chronic obstructive pulmonary disease, gastroesophageal reflux disease, parkinsons, polyneuropathy, anemia, hyperlipidemia, peptic ulcer disease, overactive bladder, major depressive disorder and schizophrenia.lbp - Plan Plan: PLAN: We will continue the patient's home medications. Supplemental oxygen as needed and respiratory treatments as needed. Continue patient's home medications. We will continue to monitor this patient. nsaids prn
[2018-12-12] MEDS: Atorvastatin Calcium 10 MG TAB PO SCH (21:28)
[2018-12-13] MEDS: Pantoprazole 40 mg EC Tab PO SCH (07:12)
[2018-12-13] MEDS: Aspirin 81mg Chewable Tab PO SCH (08:33)
[2018-12-13] MEDS: Polyvinyl Alcohol Ophth Soln 15 mL Bottle EACH EYE SCH ×2 (08:34→16:34)
--- NOTE | 2018-12-13 12:38 | Internal Medicine Prog Note ---
Internal Medicine Subjective - Subjective Patient seen and examined:: with staff, chart reviewed Patient is:: awake, verbal, interactive, in bed Patient Complaints of:: other (lbp) Per staff patient has:: no adverse event, poor appetite, unstable gait, tolerating meds Internal Medicine Objective - Physical Exam Vitals and I&O: Vital Signs Temp 97.4 F 12/13/18 06:07 Pulse 67 12/13/18 08:33 Resp 19 12/13/18 07:38 BP 147/87 12/13/18 08:34 Pulse Ox 94 12/13/18 06:07 Intake & Output 12/12/18 12/13/18 12/13/18 18:59 06:59 18:59 Intake Total 900 180 Balance 900 180 Intake: Oral 900 180 Other: # Voids 3 3 # Bowel Movements 1 0 Active Medications: Current Medications Acetaminophen/Hydrocodone Bitart ([place] 5mg/325mg) 1 tab PO Q8H PRN PRN Reason: Pain (Severe) Stop: 02/07/19 08:58 Last Admin: 12/12/18 17:59 Dose: 1 tab Artificial Tears (Artificial Tears Ophth Soln) 1 drop EACH EYE BID [facility] Stop: 02/07/19 08:59 Last Admin: 12/13/18 08:34 Dose: 1 drop Aspirin (Aspirin Chewable) 81 mg PO DAILY [facility] Stop: 02/07/19 08:59 Last Admin: 12/13/18 08:33 Dose: 81 mg Atorvastatin Calcium (Lipitor) 20 mg PO HS [facility]; Protocol Stop: 02/07/19 20:59 Last Admin: 12/12/18 21:28 Dose: 20 mg Brimonidine Tartrate (Alphagan 0.2% Ophth Soln) 1 drop EACH EYE BID [facility] Stop: 02/07/19 08:59 Last Admin: 12/13/18 08:34 Dose: 1 drop Carbidopa/Levodopa (Sinemet 25mg-100 Mg) 1 tab PO TID [facility] Stop: 02/07/19 08:59 Last Admin: 12/13/18 08:32 Dose: 1 tab Carvedilol (Coreg) 3.125 mg PO BID [facility] Stop: 02/07/19 08:59 Last Admin: 12/13/18 08:33 Dose: 3.125 mg Cholecalciferol (Vitamin D3) 1,000 iu PO DAILY [facility] Stop: 02/07/19 08:59 Last Admin: 12/13/18 08:32 Dose: 1,000 iu Fluoxetine HCl (Prozac) 40 mg PO DAILY [facility] Stop: 02/09/19 10:29 Last Admin: 12/13/18 08:32 Dose: 40 mg Furosemide (Lasix) 20 mg PO DAILY [facility] Stop: 02/07/19 08:59 Last Admin: 12/13/18 08:34 Dose: 20 mg Gabapentin (Neurontin) 300 mg PO TID [facility] Stop: 02/07/19 08:59 Last Admin: 12/13/18 08:32 Dose: 300 mg Haloperidol Decanoate (Haldol Dec) 50 mg IM [id number] [facility] Stop: 02/07/19 12:29 Last Admin: 12/09/18 12:53 Dose: Not Given Levofloxacin (Levaquin) 500 mg PO DAILY [facility] Stop: 12/16/18 09:01 Last Admin: 12/13/18 08:31 Dose: 500 mg Lisinopril (Zestril) 20 mg PO BID [facility] Stop: 02/07/19 08:59 Last Admin: 12/13/18 08:32 Dose: 20 mg Lorazepam (Ativan) 0.5 mg PO Q4HR PRN; Protocol PRN Reason: Anxiety Stop: 01/07/19 22:30 Last Admin: 12/13/18 11:21 Dose: 0.5 mg Magnesium Hydroxide (Milk Of Magnesia) 30 ml PO HS PRN PRN Reason: Constipation Mupirocin (Bactroban Oint) 1 appl NS BID [facility] Stop: 12/15/18 09:01 Last Admin: 12/13/18 08:34 Dose: 1 appl Olanzapine (Zyprexa) 10 mg PO DAILY [facility]; Protocol Stop: 02/07/19 08:59 Last Admin: 12/13/18 08:33 Dose: 10 mg Oxybutynin Chloride (Ditropan) 5 mg PO TID [facility] Stop: 02/07/19 08:59 Last Admin: 12/13/18 08:33 Dose: 5 mg Pantoprazole Sodium (Protonix) 40 mg PO 0700 [facility] Stop: 02/07/19 06:59 Last Admin: 12/13/18 07:12 Dose: 40 mg Senna (Senna) 8.6 mg PO BID [facility] Stop: 02/07/19 08:59 Last Admin: 12/13/18 08:33 Dose: 8.6 mg Trazodone HCl (Desyrel) 50 mg PO HS [facility]; Protocol Stop: 02/07/19 20:59 Last Admin: 12/12/18 21:27 Dose: 50 mg General: alert HEENT: NC/AT, PERRLA Neck: Supple Lungs: CTAB Cardiovascular: RRR, Normal S1, Normal S2, without murmur Abdomen: soft, non-tender, non-distended, positive bowel sound Extremities: excoriation Neurological: alert, unsteady - Procedures Procedures: Procedures Procedure Code Date GROUP PSYCHOTHERAPY 94658 03/19/15 GROUP PSYCHOTHERAPY GZHZZZZ 03/19/15 OTHER GROUP THERAPY 94.44 07/28/10 RECREATIONAL THERAPY 93.81 07/28/10 Internal Medicine Assmt/Plan - Assessment Assessment: ASSESSMENT: hypertension, chronic obstructive pulmonary disease, gastroesophageal reflux disease, parkinsons, polyneuropathy, anemia, hyperlipidemia, peptic ulcer disease, overactive bladder, major depressive disorder and schizophrenia.lbp - Plan Plan: PLAN: We will continue the patient's home medications. Supplemental oxygen as needed and respiratory treatments as needed. Continue patient's home medications. We will continue to monitor this patient. nsaids prn Nutritional Asmnt/Malnutr-PDOC - Dietary Evaluation Malnutrition Findings (Please click <Entered> for more info): Nutritional Asmnt/Malnutrition Start: 12/12/18 13: 37 Text: Status: Active Freq: Protocol: Document 12/12/18 13:37 PARISH (Rec: 12/12/18 13:40 [email or web address]) Nutritional Asmnt/Malnutrition Patient General Information Nutritional Screening Moderate Risk Diagnosis Psychosis Pertinent Medical Hx/Surgical Hx HTN, COPD, GERD, Parkinsons, Polyneuropathy, Anemia, Hyperlipidemia, PUD, Overactive Bladder, Major Depressive Disorder Subjective Information Pt is a 68-year-old female admitted on 12/08. Pt was transferred from [facility] d/t suicidal ideations. Pt is eating 100% of meals Per Meal/ Nutrition Activity Record since admit date- adequate to meet estimated nutritional needs. HT: 54 WT: 180 LB (81.82 kg) ABW: 135 LB (61.36 kg) BMI: 30.90 (Obese) GI: Soft, non-tender BM: 12/11 x1 I/O: 1060/Not Noted Skin: WNL, intact, dryness Shahid: 20 Diet Order: Mechanical Soft, 2gm Na Estimated Energy Needs: (Obese , ABW) 7364-1569 kcals (20-25 kcals/ kg) 61-74g Pro (1.0-1.2 g/kg) 2086-5910 ml (25-30 ml/kg) Current Diet Order/ Nutrition Support Mechanical Soft, 2gm Na Pertinent Medications Lipitor, Coreg, Vitamin D3, Lasix, MOM (PRN) Pertinent Labs No labs to report. Nutritional Hx/Data Height 1.63 m Height (Calculated Centimeters) 162.6 Current Weight (lbs) 81.647 kg Weight (Calculated Kilograms) 81.6 Weight (Calculated Grams) 26733.6 [place] Body Weight 120 LB (54.55 kg) % [place] Body Weight 150 Body Mass Index (BMI) 30.9 Weight Status Obese GI Symptoms GI Symptoms None Last BM 12/11 x1 Skin Integrity/Comment: Skin: WNL, intact, dryness Shahid: 20 Estimated Nutritional Goals BEE in Kcals: Adj wt of IBW Calories/Kcals/Kg 20-25 Kcals Calculated 2897-8999 Protein: Adj wt of IBW Protein g/k.0-1.2 Protein Calculated 61-74 Fluid: ml 6383-8068 ml (25-30 ml/kg) Nutritional Problem 1. Problem Problem Obesity Etiology r/t consistent overconsumption of energy needs Signs/Symptoms: aeb BMI 30.90 (obese, Class I) . Malnutrition Related to Morbid Obesity Malnutrition related to morbid obesity No Intervention/Recommendation Comments 1. Continue with Mechanical Soft, 2gm Na diet as ordered. 2. Consider adding reduced fat diet Rx for weight management . Expected Outcomes/Goals Expected Outcomes/Goals 1. PO intake to continue to meet >75% of estimated nutritional needs. 2. Gradual Wt trend towards IBW encouraged. 3. F/U as low risk in 7-10 days, 12/19-12/22
[2018-12-13] MEDS: Atorvastatin Calcium 10 MG TAB PO SCH (20:13)
[2018-12-13] MEDS: Hydrocodone/APAP 5mg/325mg Tab PO PRN (21:21)
--- NOTE | 2018-12-14 00:33 | Progress Notes ---
DATE: 12/13/2018 SUBJECTIVE: A 68-year-old female transferred from [facility]; increased depression, suicidal, feeling very hopeless, helpless, despairing, wanting to , feeling worthless and hopeless. The patient notes that she has some court case next month, details unspecified, and she has been worried and nervous about this, still down on exam, depressed, fluctuating moods, erratic SI, still depressed, somewhat withdrawn, melancholic. Medications were noted. ASSESSMENT: Ongoing safety concerns, concerns for suicide, suicidality, multiple and many psychiatric admissions. PLAN: We will continue inpatient monitoring. JOB# [id number]
[2018-12-14] MEDS: Pantoprazole 40 mg EC Tab PO SCH (06:39)
[2018-12-14] MEDS: Aspirin 81mg Chewable Tab PO SCH (09:15)
[2018-12-14] MEDS: Polyvinyl Alcohol Ophth Soln 15 mL Bottle EACH EYE SCH ×2 (09:18→17:11)
[2018-12-14] MEDS: Hydrocodone/APAP 5mg/325mg Tab PO PRN (09:56)
--- NOTE | 2018-12-14 13:11 | Internal Medicine Prog Note ---
Internal Medicine Subjective - Subjective Patient seen and examined:: with staff, chart reviewed Patient is:: awake, verbal, interactive, in bed Patient Complaints of:: other (lbp) Per staff patient has:: no adverse event, poor appetite, unstable gait, tolerating meds Internal Medicine Objective - Physical Exam Vitals and I&O: Vital Signs Temp 97.2 F 12/14/18 06:28 Pulse 60 12/14/18 09:17 Resp 18 12/14/18 06:28 BP 158/86 12/14/18 09:17 Pulse Ox 96 12/14/18 06:28 Intake & Output 12/13/18 12/14/18 12/14/18 18:59 06:59 18:59 Intake Total 1600 120 Balance 1600 120 Intake: Oral 1600 120 Other: # Voids 4 3 # Bowel Movements 1 Active Medications: Current Medications Acetaminophen/Hydrocodone Bitart ([place] 5mg/325mg) 1 tab PO Q8H PRN PRN Reason: Pain (Severe) Stop: 02/07/19 08:58 Last Admin: 12/14/18 09:56 Dose: 1 tab Artificial Tears (Artificial Tears Ophth Soln) 1 drop EACH EYE BID [facility] Stop: 02/07/19 08:59 Last Admin: 12/14/18 09:18 Dose: 1 drop Aspirin (Aspirin Chewable) 81 mg PO DAILY [facility] Stop: 02/07/19 08:59 Last Admin: 12/14/18 09:15 Dose: 81 mg Atorvastatin Calcium (Lipitor) 20 mg PO HS [facility]; Protocol Stop: 02/07/19 20:59 Last Admin: 12/13/18 20:13 Dose: 20 mg Brimonidine Tartrate ([place]ph[place] 0.2% Ophth Soln) 1 drop EACH EYE BID [facility] Stop: 02/07/19 08:59 Last Admin: 12/14/18 09:16 Dose: 1 drop Carbidopa/Levodopa (Sinemet 25mg-100 Mg) 1 tab PO TID [facility] Stop: 02/07/19 08:59 Last Admin: 12/14/18 09:16 Dose: 1 tab Carvedilol (Coreg) 3.125 mg PO BID [facility] Stop: 02/07/19 08:59 Last Admin: 12/14/18 09:16 Dose: 3.125 mg Cholecalciferol (Vitamin D3) 1,000 iu PO DAILY [facility] Stop: 02/07/19 08:59 Last Admin: 12/14/18 09:15 Dose: 1,000 iu Fluoxetine HCl (Prozac) 40 mg PO DAILY [facility] Stop: 02/09/19 10:29 Last Admin: 12/14/18 09:15 Dose: 40 mg Furosemide (Lasix) 20 mg PO DAILY [facility] Stop: 02/07/19 08:59 Last Admin: 12/14/18 09:17 Dose: 20 mg Gabapentin (Neurontin) 300 mg PO TID [facility] Stop: 02/07/19 08:59 Last Admin: 12/14/18 09:16 Dose: 300 mg Haloperidol Decanoate (Haldol Dec) 50 mg IM [id number] [facility] Stop: 02/07/19 12:29 Last Admin: 12/09/18 12:53 Dose: Not Given Levofloxacin (Levaquin) 500 mg PO DAILY [facility] Stop: 12/16/18 09:01 Last Admin: 12/14/18 09:16 Dose: 500 mg Lisinopril (Zestril) 20 mg PO BID [facility] Stop: 02/07/19 08:59 Last Admin: 12/14/18 09:17 Dose: 20 mg Lorazepam (Ativan) 0.5 mg PO Q4HR PRN; Protocol PRN Reason: Anxiety Stop: 01/07/19 22:30 Last Admin: 12/14/18 11:31 Dose: 0.5 mg Magnesium Hydroxide (Milk Of Magnesia) 30 ml PO HS PRN PRN Reason: Constipation Mupirocin (Bactroban Oint) 1 appl NS BID [facility] Stop: 12/15/18 09:01 Last Admin: 12/14/18 09:15 Dose: 1 appl Olanzapine (Zyprexa) 10 mg PO DAILY [facility]; Protocol Stop: 02/07/19 08:59 Last Admin: 12/14/18 09:15 Dose: 10 mg Oxybutynin Chloride (Ditropan) 5 mg PO TID [facility] Stop: 02/07/19 08:59 Last Admin: 12/14/18 09:15 Dose: 5 mg Pantoprazole Sodium (Protonix) 40 mg PO 0700 [facility] Stop: 02/07/19 06:59 Last Admin: 12/14/18 06:39 Dose: 40 mg Senna (Senna) 8.6 mg PO BID [facility] Stop: 02/07/19 08:59 Last Admin: 12/14/18 09:15 Dose: 8.6 mg Trazodone HCl (Desyrel) 50 mg PO HS [facility]; Protocol Stop: 02/07/19 20:59 Last Admin: 12/13/18 20:14 Dose: 50 mg General: alert HEENT: NC/AT, PERRLA Neck: Supple Lungs: CTAB Cardiovascular: RRR, Normal S1, Normal S2, without murmur Abdomen: soft, non-tender, non-distended, positive bowel sound Extremities: excoriation Neurological: alert, unsteady - Procedures Procedures: Procedures Procedure Code Date GROUP PSYCHOTHERAPY 04990 03/19/15 GROUP PSYCHOTHERAPY GZHZZZZ 03/19/15 OTHER GROUP THERAPY 94.44 07/28/10 RECREATIONAL THERAPY 93.81 07/28/10 Internal Medicine Assmt/Plan - Assessment Assessment: ASSESSMENT: hypertension, chronic obstructive pulmonary disease, gastroesophageal reflux disease, parkinsons, polyneuropathy, anemia, hyperlipidemia, peptic ulcer disease, overactive bladder, major depressive disorder and schizophrenia.lbp - Plan Plan: PLAN: We will continue the patient's home medications. Supplemental oxygen as needed and respiratory treatments as needed. Continue patient's home medications. We will continue to monitor this patient. nsaids prn Nutritional Asmnt/Malnutr-PDOC - Dietary Evaluation Malnutrition Findings (Please click <Entered> for more info): Nutritional Asmnt/Malnutrition Start: 12/12/18 13: 37 Text: Status: Active Freq: Protocol: Document 12/12/18 13:37 PARISH (Rec: 12/12/18 13:40 [email or web address]) Nutritional Asmnt/Malnutrition Patient General Information Nutritional Screening Moderate Risk Diagnosis Psychosis Pertinent Medical Hx/Surgical Hx HTN, COPD, GERD, Parkinsons, Polyneuropathy, Anemia, Hyperlipidemia, PUD, Overactive Bladder, Major Depressive Disorder Subjective Information Pt is a 68-year-old female admitted on 12/08. Pt was transferred from [facility] d/t suicidal ideations. Pt is eating 100% of meals Per Meal/ Nutrition Activity Record since admit date- adequate to meet estimated nutritional needs. HT: 54 WT: 180 LB (81.82 kg) ABW: 135 LB (61.36 kg) BMI: 30.90 (Obese) GI: Soft, non-tender BM: 12/11 x1 I/O: 1060/Not Noted Skin: WNL, intact, dryness Shahid: 20 Diet Order: Mechanical Soft, 2gm Na Estimated Energy Needs: (Obese , ABW) 3766-8256 kcals (20-25 kcals/ kg) 61-74g Pro (1.0-1.2 g/kg) 5587-9503 ml (25-30 ml/kg) Current Diet Order/ Nutrition Support Mechanical Soft, 2gm Na Pertinent Medications Lipitor, Coreg, Vitamin D3, Lasix, MOM (PRN) Pertinent Labs No labs to report. Nutritional Hx/Data Height 1.63 m Height (Calculated Centimeters) 162.6 Current Weight (lbs) 81.647 kg Weight (Calculated Kilograms) 81.6 Weight (Calculated Grams) 12995.6 [place] Body Weight 120 LB (54.55 kg) % [place] Body Weight 150 Body Mass Index (BMI) 30.9 Weight Status Obese GI Symptoms GI Symptoms None Last BM 12/11 x1 Skin Integrity/Comment: Skin: WNL, intact, dryness Shahid: 20 Estimated Nutritional Goals BEE in Kcals: Adj wt of IBW Calories/Kcals/Kg 20-25 Kcals Calculated 2646-2096 Protein: Adj wt of IBW Protein g/k.0-1.2 Protein Calculated 61-74 Fluid: ml 0279-1481 ml (25-30 ml/kg) Nutritional Problem 1. Problem Problem Obesity Etiology r/t consistent overconsumption of energy needs Signs/Symptoms: aeb BMI 30.90 (obese, Class I) . Malnutrition Related to Morbid Obesity Malnutrition related to morbid obesity No Intervention/Recommendation Comments 1. Continue with Mechanical Soft, 2gm Na diet as ordered. 2. Consider adding reduced fat diet Rx for weight management . Expected Outcomes/Goals Expected Outcomes/Goals 1. PO intake to continue to meet >75% of estimated nutritional needs. 2. Gradual Wt trend towards IBW encouraged. 3. F/U as low risk in 7-10 days, 12/19-12/22
--- NOTE | 2018-12-14 19:10 | Progress Notes ---
DATE: 12/14/2018 SUBJECTIVE: The patient in the hospital was suicidal and really upset, aggressive. The patient seems to be calmer, generally more cooperative, still sometimes easily agitated, forgetful at times, minimizing her symptoms, stating she wants to leave. The patient is still withdrawn, sometimes keeping to herself. Ongoing concerns about poor impulse control, impulsivities, seems to be tolerant of treatment thus far. No current side effects noted. ASSESSMENT: The patient remains symptomatic. Ongoing safety concerns. She is calmer. PLAN: We will continue to monitor. JOB# [id number]
[2018-12-14] MEDS: Atorvastatin Calcium 10 MG TAB PO SCH (20:28)
[2018-12-15] MEDS: Pantoprazole 40 mg EC Tab PO SCH (06:38)
[2018-12-15] MEDS: Hydrocodone/APAP 5mg/325mg Tab PO PRN (08:39)
[2018-12-15] MEDS: Aspirin 81mg Chewable Tab PO SCH (08:40)
[2018-12-15] MEDS: Polyvinyl Alcohol Ophth Soln 15 mL Bottle EACH EYE SCH (09:42)
--- NOTE | 2018-12-15 12:45 | Internal Medicine Prog Note ---
Internal Medicine Subjective - Subjective Patient seen and examined:: with staff, chart reviewed Patient is:: awake, verbal, interactive, in bed Patient Complaints of:: other (lbp) Per staff patient has:: no adverse event, poor appetite, unstable gait, tolerating meds Internal Medicine Objective - Physical Exam Vitals and I&O: Vital Signs Temp 98.4 F 12/15/18 06:28 Pulse 66 12/15/18 08:39 Resp 18 12/15/18 06:28 BP 143/77 12/15/18 08:39 Pulse Ox 97 12/15/18 06:28 Intake & Output 12/14/18 12/15/18 12/15/18 18:59 06:59 18:59 Intake Total 1600 120 Balance 1600 120 Intake: Oral 1600 120 Other: # Voids 4 3 # Bowel Movements 1 Active Medications: Current Medications Acetaminophen/Hydrocodone Bitart ([place] 5mg/325mg) 1 tab PO Q8H PRN PRN Reason: Pain (Severe) Stop: 02/07/19 08:58 Last Admin: 12/15/18 08:39 Dose: 1 tab Artificial Tears (Artificial Tears Ophth Soln) 1 drop EACH EYE BID [facility] Stop: 02/07/19 08:59 Last Admin: 12/15/18 09:42 Dose: Not Given Aspirin (Aspirin Chewable) 81 mg PO DAILY [facility] Stop: 02/07/19 08:59 Last Admin: 12/15/18 08:40 Dose: 81 mg Atorvastatin Calcium (Lipitor) 20 mg PO HS [facility]; Protocol Stop: 02/07/19 20:59 Last Admin: 12/14/18 20:28 Dose: 20 mg Brimonidine Tartrate (Alph[place] 0.2% Ophth Soln) 1 drop EACH EYE BID [facility] Stop: 02/07/19 08:59 Last Admin: 12/15/18 08:41 Dose: 1 drop Carbidopa/Levodopa (Sinemet 25mg-100 Mg) 1 tab PO TID [facility] Stop: 02/07/19 08:59 Last Admin: 12/15/18 08:40 Dose: 1 tab Carvedilol (Coreg) 3.125 mg PO BID [facility] Stop: 02/07/19 08:59 Last Admin: 12/15/18 08:39 Dose: 3.125 mg Cholecalciferol (Vitamin D3) 1,000 iu PO DAILY [facility] Stop: 02/07/19 08:59 Last Admin: 12/15/18 08:39 Dose: 1,000 iu Fluoxetine HCl (Prozac) 40 mg PO DAILY [facility] Stop: 02/09/19 10:29 Last Admin: 12/15/18 08:41 Dose: 40 mg Furosemide (Lasix) 20 mg PO DAILY [facility] Stop: 02/07/19 08:59 Last Admin: 12/15/18 08:39 Dose: 20 mg Gabapentin (Neurontin) 300 mg PO TID [facility] Stop: 02/07/19 08:59 Last Admin: 12/15/18 08:38 Dose: 300 mg Haloperidol Decanoate (Haldol Dec) 50 mg IM [id number] [facility] Stop: 02/07/19 12:29 Last Admin: 12/09/18 12:53 Dose: Not Given Levofloxacin (Levaquin) 500 mg PO DAILY [facility] Stop: 12/16/18 09:01 Last Admin: 12/15/18 08:38 Dose: 500 mg Lisinopril (Zestril) 20 mg PO BID [facility] Stop: 02/07/19 08:59 Last Admin: 12/15/18 08:38 Dose: 20 mg Lorazepam (Ativan) 0.5 mg PO Q4HR PRN; Protocol PRN Reason: Anxiety Stop: 01/07/19 22:30 Last Admin: 12/14/18 11:31 Dose: 0.5 mg Magnesium Hydroxide (Milk Of Magnesia) 30 ml PO HS PRN PRN Reason: Constipation Olanzapine (Zyprexa) 10 mg PO DAILY [facility]; Protocol Stop: 02/07/19 08:59 Last Admin: 12/15/18 08:40 Dose: 10 mg Oxybutynin Chloride (Ditropan) 5 mg PO TID [facility] Stop: 02/07/19 08:59 Last Admin: 12/15/18 08:40 Dose: 5 mg Pantoprazole Sodium (Protonix) 40 mg PO 0700 [facility] Stop: 02/07/19 06:59 Last Admin: 12/15/18 06:38 Dose: 40 mg Senna (Senna) 8.6 mg PO BID [facility] Stop: 02/07/19 08:59 Last Admin: 12/15/18 08:40 Dose: 8.6 mg Trazodone HCl (Desyrel) 50 mg PO HS [facility]; Protocol Stop: 02/07/19 20:59 Last Admin: 12/14/18 20:28 Dose: 50 mg General: alert HEENT: NC/AT, PERRLA Neck: Supple Lungs: CTAB Cardiovascular: RRR, Normal S1, Normal S2, without murmur Abdomen: soft, non-tender, non-distended, positive bowel sound Extremities: excoriation Neurological: alert, unsteady - Procedures Procedures: Procedures Procedure Code Date GROUP PSYCHOTHERAPY 03166 03/19/15 GROUP PSYCHOTHERAPY GZHZZZZ 03/19/15 OTHER GROUP THERAPY 94.44 07/28/10 RECREATIONAL THERAPY 93.81 07/28/10 Internal Medicine Assmt/Plan - Assessment Assessment: ASSESSMENT: hypertension, chronic obstructive pulmonary disease, gastroesophageal reflux disease, parkinsons, polyneuropathy, anemia, hyperlipidemia, peptic ulcer disease, overactive bladder, major depressive disorder and schizophrenia.lbp - Plan Plan: PLAN: We will continue the patient's home medications. Supplemental oxygen as needed and respiratory treatments as needed. Continue patient's home medications. We will continue to monitor this patient. nsaids prn Nutritional Asmnt/Malnutr-PDOC - Dietary Evaluation Malnutrition Findings (Please click <Entered> for more info): Nutritional Asmnt/Malnutrition Start: 12/12/18 13: 37 Text: Status: Active Freq: Protocol: Document 12/12/18 13:37 [facility] (Rec: 12/12/18 13:40 [email or web address]) Nutritional Asmnt/Malnutrition Patient General Information Nutritional Screening Moderate Risk Diagnosis Psychosis Pertinent Medical Hx/Surgical Hx HTN, COPD, GERD, Parkinsons, Polyneuropathy, Anemia, Hyperlipidemia, PUD, Overactive Bladder, Major Depressive Disorder Subjective Information Pt is a 68-year-old female admitted on 12/08. Pt was transferred from [facility] [place] d/t suicidal ideations. Pt is eating 100% of meals Per Meal/ Nutrition Activity Record since admit date- adequate to meet estimated nutritional needs. HT: 54 WT: 180 LB (81.82 kg) ABW: 135 LB (61.36 kg) BMI: 30.90 (Obese) GI: Soft, non-tender BM: 12/11 x1 I/O: 1060/Not Noted Skin: WNL, intact, dryness Shahid: 20 Diet Order: Mechanical Soft, 2gm Na Estimated Energy Needs: (Obese , ABW) 9975-9787 kcals (20-25 kcals/ kg) 61-74g Pro (1.0-1.2 g/kg) 6909-2883 ml (25-30 ml/kg) Current Diet Order/ Nutrition Support Mechanical Soft, 2gm Na Pertinent Medications Lipitor, Coreg, Vitamin D3, Lasix, MOM (PRN) Pertinent Labs No labs to report. Nutritional Hx/Data Height 1.63 m Height (Calculated Centimeters) 162.6 Current Weight (lbs) 81.647 kg Weight (Calculated Kilograms) 81.6 Weight (Calculated Grams) 08302.6 [place] Body Weight 120 LB (54.55 kg) % [place] Body Weight 150 Body Mass Index (BMI) 30.9 Weight Status Obese GI Symptoms GI Symptoms None Last BM 12/11 x1 Skin Integrity/Comment: Skin: WNL, intact, dryness Shahid: 20 Estimated Nutritional Goals BEE in Kcals: Adj wt of IBW Calories/Kcals/Kg 20-25 Kcals Calculated 1487-0191 Protein: Adj wt of IBW Protein g/k.0-1.2 Protein Calculated 61-74 Fluid: ml 4372-7312 ml (25-30 ml/kg) Nutritional Problem 1. Problem Problem Obesity Etiology r/t consistent overconsumption of energy needs Signs/Symptoms: aeb BMI 30.90 (obese, Class I) . Malnutrition Related to Morbid Obesity Malnutrition related to morbid obesity No Intervention/Recommendation Comments 1. Continue with Mechanical Soft, 2gm Na diet as ordered. 2. Consider adding reduced fat diet Rx for weight management . Expected Outcomes/Goals Expected Outcomes/Goals 1. PO intake to continue to meet >75% of estimated nutritional needs. 2. Gradual Wt trend towards IBW encouraged. 3. F/U as low risk in 7-10 days, 12/19-12/22
--- NOTE | 2018-12-15 17:20 | Progress Notes ---
DATE: 12/15/2018 SUBJECTIVE: The patient is currently in the hospital, calm, cooperative, linear, engaged, no SI, no HI, no intent, no plan. She wants to leave. She has been calm and has been no agitation or event. Staff noting improvement. Socializing well. Tolerant to medications. Placement confirmed. PLAN: We will discharge today, full discharge summary by primary psychiatrist to follow. [facility]# [id number]
== END 2018-12-15 14:20 | DRG 885 ==
LOC: GERO 21:53
PROVIDERS: ADMIT Psychiatry & Neurology Psychiatry; ATTEND Psychiatry & Neurology Psychiatry
DX: F25.1 Schizoaffective disorder, depressive type (principal); J44.9 Chronic obstructive pulmonary disease, unspecified; F32.9 Major depressive disorder, single episode, unspecified; I10 Essential (primary) hypertension; K21.9 Gastro-esophageal reflux disease without esophagitis; G20 Parkinson's disease; G62.9 Polyneuropathy, unspecified; E78.5 Hyperlipidemia, unspecified; D64.9 Anemia, unspecified; K27.9 Peptic ulcer, site unspecified, unspecified as acute or chronic, without hemorrhage or perforation; N32.81 Overactive bladder
CPT/HCPCS: 83036-90; 90899; G0410; J1631; Z7610

== ENCOUNTER 2019-02-25 13:00 | Inpatient (IN) | payer MEDICARE, MEDICAID ==
[2019-02-25] MEDS ORDERED: Magnesium Hydroxide (MOM) 30 mL UDC PO PRN (13:24)
[2019-02-25] MEDS ORDERED: Maalox 30 mL Cup PO PRN (13:29)
[2019-02-25 13:30] VITALS: BP 159/61
[2019-02-25] MEDS: Polyvinyl Alcohol Ophth Soln 15 mL Bottle EACH EYE SCH (17:41)
--- NOTE | 2019-02-25 21:01 | History & Physical ---
ADMIT DATE: 02/25/2019 CHIEF COMPLAINT: Transferred from [facility], who is medically cleared to the Geropsych Unit for continuation of psychiatric management. HISTORY OF PRESENT ILLNESS: This is a 68-year-old female who is medically cleared from [facility] ER. The patient is admitted to the Geropsych Unit due to having increase of agitation at her nursing facility. PAST MEDICAL HISTORY: Hypertension, COPD, GERD, Parkinson, polyneuropathy, anemia, hyperlipidemia, PUD, overactive bladder, major depressive disorder, schizophrenia. PAST SURGICAL HISTORY: Unknown. ALLERGIES: No known drug allergies. SOCIAL HISTORY: The patient is a skilled nursing resident at [facility]. FAMILY HISTORY: Noncontributory. REVIEW OF SYSTEMS: GENERAL: Denies any fevers and chills. CARDIOVASCULAR: Denies chest pain. RESPIRATORY: Denies shortness of breath. GASTROINTESTINAL: Denies nausea, vomiting, abdominal pain. GENITOURINARY: Denies increased dysuria. NEUROLOGIC: Denies headaches, seizures or syncope. All other systems are reviewed and negative. PHYSICAL EXAMINATION: GENERAL: The patient is mildly obese, awake, alert, in no apparent distress. VITAL SIGNS: Blood pressure 140/76, heart rate 70, respiration 18, temperature 97.6, O2 98%. HEENT: Head; normocephalic, atraumatic. NECK: Supple. No mass. LUNGS: Clear bilaterally. HEART: Regular rate and rhythm. ABDOMEN: Soft, nontender. GENITOURINARY, RECTAL, GENITALIA: The patient refused. EXTREMITIES: No clubbing, cyanosis, or edema. ASSESSMENT: Increase in agitation, hypertension, chronic obstructive pulmonary disease, gastroesophageal reflux disease, Parkinson, polyneuropathy, anemia, hyperlipidemia, peptic ulcer disease, overactive bladder, major depressive disorder and schizophrenia. PLAN: Continue the patient's home medications, supplemental oxygen as needed and respiratory treatments as needed. Fall precautions were initiated. We will continue to monitor this patient. [facility]# [id number]
[2019-02-25] MEDS: Atorvastatin Calcium 10 MG TAB PO SCH (21:08)
[2019-02-26] MEDS: Pantoprazole 40 mg EC Tab PO SCH (06:43)
[2019-02-26] MEDS: Multivitamin Tab PO SCH (08:39)
[2019-02-26] MEDS: Aspirin 81mg Chewable Tab PO SCH (08:40)
[2019-02-26] MEDS: Polyvinyl Alcohol Ophth Soln 15 mL Bottle EACH EYE SCH ×2 (08:48→16:40)
[2019-02-26] MEDS: Albuterol 2 mg/5 mL UDC PO SCH ×4 (08:54→20:51)
[2019-02-26] MEDS: Hydrocodone/APAP 5mg/325mg Tab PO PRN (09:07)
[2019-02-26] MEDS ORDERED: Albuterol Nebulizer 2.5mg/3mL HHN PRN (12:34)
--- NOTE | 2019-02-26 12:35 | Internal Medicine Prog Note ---
Internal Medicine Subjective - Subjective Patient seen and examined:: with staff, chart reviewed Patient is:: awake, verbal, interactive, in wheelchair Per staff patient has:: no adverse event, tolerating meds Internal Medicine Objective - Physical Exam Vitals and I&O: Vital Signs Temp 97.4 F 02/26/19 06:24 Pulse 74 02/26/19 08:40 Resp 17 02/26/19 08:00 BP 172/90 02/26/19 08:40 Pulse Ox 91 02/26/19 06:24 Intake & Output 02/25/19 02/26/19 02/26/19 18:59 06:59 18:59 Intake Total 460 420 Balance 460 420 Weight (lbs) 71.668 kg Intake: Oral 460 420 Other: # Voids 2 2 # Bowel Movements 1 0 Weight Source Bedscale Active Medications: Current Medications Acetaminophen (Tylenol) 650 mg PO Q4HR PRN PRN Reason: Mild Pain / Temp above 100 Stop: 04/26/19 13:28 Acetaminophen/Hydrocodone Bitart ([place] 5mg/325mg) 1 tab PO Q8H PRN PRN Reason: Pain (Severe 7-10) Stop: 04/26/19 13:23 Last Admin: 02/26/19 09:07 Dose: 1 tab Al Hydrox/Mg Hydrox/Simethicone (Maalox) 30 ml PO Q4HR PRN PRN Reason: GI DISTRESS Stop: 04/26/19 13:28 Albuterol Sulfate (Ventolin) 2 mg PO QID [facility] Stop: 04/27/19 08:59 Last Admin: 02/26/19 08:54 Dose: 2 mg Artificial Tears (Artificial Tears Ophth Soln) 1 drop EACH EYE BID [facility] Stop: 04/26/19 16:59 Last Admin: 02/26/19 08:48 Dose: 1 drop Aspirin (Aspirin Chewable) 81 mg PO DAILY [facility] Stop: 04/27/19 08:59 Last Admin: 02/26/19 08:40 Dose: 81 mg Atorvastatin Calcium (Lipitor) 20 mg PO HS [facility]; Protocol Stop: 04/26/19 20:59 Last Admin: 02/25/19 21:08 Dose: Not Given Brimonidine Tartrate ([place] 0.2% Ophth Soln) 1 drop EACH EYE BID [facility] Stop: 04/26/19 16:59 Last Admin: 02/26/19 08:44 Dose: 1 drop Carbidopa/Levodopa (Sinemet 25mg-100 Mg) 1 tab PO TID [facility] Stop: 04/26/19 13:59 Last Admin: 02/26/19 08:39 Dose: 1 tab Carvedilol (Coreg) 3.125 mg PO BID [facility] Stop: 04/26/19 16:59 Last Admin: 02/26/19 08:40 Dose: 3.125 mg Cholecalciferol (Vitamin D3) 1,000 iu PO DAILY [facility] Stop: 04/27/19 08:59 Last Admin: 02/26/19 08:39 Dose: 1,000 iu Fluoxetine HCl (Prozac) 40 mg PO DAILY [facility]; Protocol Stop: 04/27/19 08:59 Last Admin: 02/26/19 08:39 Dose: 40 mg Furosemide (Lasix) 20 mg PO DAILY [facility] Stop: 04/27/19 08:59 Last Admin: 02/26/19 08:38 Dose: 20 mg Gabapentin (Neurontin) 300 mg PO TID [facility] Stop: 04/27/19 08:59 Last Admin: 02/26/19 08:39 Dose: 300 mg Haloperidol Decanoate (Haldol Dec) 50 mg IM [id number] [facility]; Protocol Stop: 04/26/19 13:29 Last Admin: 02/25/19 14:30 Dose: Not Given Levofloxacin (Levaquin) 500 mg PO DAILY [facility] Stop: 04/27/19 08:59 Last Admin: 02/26/19 08:39 Dose: 500 mg Lisinopril (Zestril) 20 mg PO BID [facility] Stop: 04/26/19 16:59 Last Admin: 02/26/19 08:40 Dose: 20 mg Lorazepam (Ativan) 0.5 mg PO Q4HR PRN; Protocol PRN Reason: Anxiety Stop: 04/26/19 13:23 Last Admin: 02/26/19 05:34 Dose: 0.5 mg Magnesium Hydroxide (Milk Of Magnesia) 30 ml PO HS PRN PRN Reason: Constipation Stop: 04/26/19 13:23 Multivitamins/Vitamin C (Theragran) 1 tab PO DAILY [facility] Stop: 04/27/19 08:59 Last Admin: 02/26/19 08:39 Dose: 1 tab Olanzapine (Zyprexa) 10 mg PO DAILY [facility]; Protocol Stop: 04/27/19 08:59 Last Admin: 02/26/19 08:39 Dose: 10 mg Ondansetron HCl (Zofran Odt) 4 mg PO Q8H PRN PRN Reason: Nausea / Vomiting Stop: 04/26/19 13:26 Oxybutynin Chloride (Ditropan) 5 mg PO TID [facility] Stop: 04/26/19 13:59 Last Admin: 02/26/19 08:39 Dose: 5 mg Pantoprazole Sodium (Protonix) 40 mg PO 0700 [facility] Stop: 04/27/19 06:59 Last Admin: 02/26/19 06:43 Dose: 40 mg Senna (Senna) 8.6 mg PO BID [facility] Stop: 04/26/19 16:59 Last Admin: 02/26/19 08:39 Dose: Not Given Trazodone HCl (Desyrel) 50 mg PO HS [facility]; Protocol Stop: 04/26/19 20:59 Last Admin: 02/25/19 21:08 Dose: Not Given Zolpidem Tartrate (Ambien) 5 mg PO HS PRN PRN Reason: Insomnia Stop: 04/26/19 13:28 General: alert HEENT: PERRLA Neck: Supple, No JVD Lungs: wheezing Cardiovascular: RRR, Normal S1, Normal S2, with murmur Abdomen: soft, thin Extremities: excoriation Neurological: no change - Procedures Procedures: Procedures Procedure Code Date GROUP PSYCHOTHERAPY 94898 03/19/15 GROUP PSYCHOTHERAPY GZHZZZZ 03/19/15 OTHER GROUP THERAPY 94.44 07/28/10 RECREATIONAL THERAPY 93.81 07/28/10 Internal Medicine Assmt/Plan - Assessment Assessment: ASSESSMENT: Increase in agitation, hypertension, chronic obstructive pulmonary disease, gastroesophageal reflux disease, Parkinson, polyneuropathy, anemia, hyperlipidemia, peptic ulcer disease, overactive bladder, major depressive disorder and schizophrenia. - Plan Plan: PLAN: add bronchodilator Continue the patient's home medications, supplemental oxygen as needed and respiratory treatments as needed. Fall precautions were initiated. We will continue to monitor this patient.
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
[2019-02-26] MEDS: Atorvastatin Calcium 10 MG TAB PO SCH (20:46)
[2019-02-27] MEDS: Pantoprazole 40 mg EC Tab PO SCH (06:29)
[2019-02-27] MEDS: Aspirin 81mg Chewable Tab PO SCH (08:26)
[2019-02-27] MEDS: Hydrocodone/APAP 5mg/325mg Tab PO PRN ×2 (08:28→22:34)
[2019-02-27] MEDS: Multivitamin Tab PO SCH (08:29)
[2019-02-27] MEDS: Albuterol 2 mg/5 mL UDC PO SCH ×4 (08:30→20:49)
[2019-02-27] MEDS: Polyvinyl Alcohol Ophth Soln 15 mL Bottle EACH EYE SCH ×2 (08:35→17:11)
--- NOTE | 2019-02-27 13:02 | Internal Medicine Prog Note ---
Internal Medicine Subjective - Subjective Patient seen and examined:: with staff, chart reviewed Patient is:: awake, verbal, interactive, in wheelchair Per staff patient has:: no adverse event, tolerating meds Internal Medicine Objective - Physical Exam Vitals and I&O: Vital Signs Temp 98.0 F 02/27/19 06:20 Pulse 78 02/27/19 08:28 Resp 20 02/27/19 06:20 BP 135/71 02/27/19 08:28 Pulse Ox 94 02/27/19 06:20 Intake & Output 02/26/19 02/27/19 02/27/19 18:59 06:59 18:59 Intake Total 1320 240 Balance 1320 240 Intake: Oral 1080 240 Other 240 Other: # Voids 4 2 # Bowel Movements 0 Active Medications: Current Medications Acetaminophen (Tylenol) 650 mg PO Q4HR PRN PRN Reason: Mild Pain (Scale 1-3) Stop: 04/26/19 13:28 Acetaminophen (Tylenol) 650 mg PO Q4H PRN PRN Reason: TEMP ABOVE 100 Stop: 04/28/19 10:50 Acetaminophen/Hydrocodone Bitart ([place] 5mg/325mg) 1 tab PO Q8H PRN PRN Reason: Pain (Severe 7-10) Stop: 04/26/19 13:23 Last Admin: 02/27/19 08:28 Dose: 1 tab Al Hydrox/Mg Hydrox/Simethicone (Maalox) 30 ml PO Q4HR PRN PRN Reason: GI DISTRESS Stop: 04/26/19 13:28 Albuterol Sulfate (Ventolin) 2 mg PO QID [facility] Stop: 04/27/19 08:59 Last Admin: 02/27/19 08:30 Dose: 2 mg Albuterol Sulfate (Albuterol 2.5mg/3ml Neb Ud) 2.5 mg HHN Q2HRT PRN PRN Reason: Shortness of Breath or Wheeze Stop: 04/27/19 12:33 Last Admin: 02/27/19 11:29 Dose: 2.5 mg Artificial Tears (Artificial Tears Ophth Soln) 1 drop EACH EYE BID [facility] Stop: 04/26/19 16:59 Last Admin: 02/27/19 08:35 Dose: Not Given Aspirin (Aspirin Chewable) 81 mg PO DAILY [facility] Stop: 04/27/19 08:59 Last Admin: 02/27/19 08:26 Dose: 81 mg Atorvastatin Calcium (Lipitor) 20 mg PO HS [facility]; Protocol Stop: 04/26/19 20:59 Last Admin: 02/26/19 20:46 Dose: 20 mg Brimonidine Tartrate (Alphagan 0.2% Ophth Soln) 1 drop EACH EYE BID [facility] Stop: 04/26/19 16:59 Last Admin: 02/27/19 08:35 Dose: Not Given Carbidopa/Levodopa (Sinemet 25mg-100 Mg) 1 tab PO TID [facility] Stop: 04/26/19 13:59 Last Admin: 02/27/19 08:27 Dose: 1 tab Carvedilol (Coreg) 3.125 mg PO BID [facility] Stop: 04/26/19 16:59 Last Admin: 02/27/19 08:28 Dose: 3.125 mg Cholecalciferol (Vitamin D3) 1,000 iu PO DAILY [facility] Stop: 04/27/19 08:59 Last Admin: 02/27/19 08:27 Dose: 1,000 iu Fluoxetine HCl (Prozac) 40 mg PO DAILY [facility]; Protocol Stop: 04/27/19 08:59 Last Admin: 02/27/19 08:26 Dose: 40 mg Furosemide (Lasix) 20 mg PO DAILY [facility] Stop: 04/27/19 08:59 Last Admin: 02/27/19 08:26 Dose: 20 mg Gabapentin (Neurontin) 300 mg PO TID [facility] Stop: 04/27/19 08:59 Last Admin: 02/27/19 08:28 Dose: 300 mg Haloperidol Decanoate (Haldol Dec) 50 mg IM [id number] [facility]; Protocol Stop: 04/26/19 13:29 Last Admin: 02/25/19 14:30 Dose: Not Given Levofloxacin (Levaquin) 500 mg PO DAILY [facility] Stop: 04/27/19 08:59 Last Admin: 02/27/19 08:27 Dose: 500 mg Lisinopril (Zestril) 20 mg PO BID [facility] Stop: 04/26/19 16:59 Last Admin: 02/27/19 08:28 Dose: 20 mg Lorazepam (Ativan) 0.5 mg PO Q4HR PRN; Protocol PRN Reason: Anxiety Stop: 04/26/19 13:23 Last Admin: 02/27/19 11:29 Dose: 0.5 mg Magnesium Hydroxide (Milk Of Magnesia) 30 ml PO HS PRN PRN Reason: Constipation Stop: 04/26/19 13:23 Multivitamins/Vitamin C (Theragran) 1 tab PO DAILY [facility] Stop: 04/27/19 08:59 Last Admin: 02/27/19 08:29 Dose: 1 tab Olanzapine (Zyprexa) 10 mg PO DAILY [facility]; Protocol Stop: 04/27/19 08:59 Last Admin: 02/27/19 08:29 Dose: 10 mg Ondansetron HCl (Zofran Odt) 4 mg PO Q8H PRN PRN Reason: Nausea / Vomiting Stop: 04/26/19 13:26 Oxybutynin Chloride (Ditropan) 5 mg PO TID [facility] Stop: 04/26/19 13:59 Last Admin: 02/27/19 08:29 Dose: 5 mg Pantoprazole Sodium (Protonix) 40 mg PO 0700 [facility] Stop: 04/27/19 06:59 Last Admin: 02/27/19 06:29 Dose: 40 mg Senna (Senna) 8.6 mg PO BID [facility] Stop: 04/26/19 16:59 Last Admin: 02/27/19 08:26 Dose: Not Given Trazodone HCl (Desyrel) 50 mg PO HS [facility]; Protocol Stop: 04/26/19 20:59 Last Admin: 02/26/19 20:49 Dose: 50 mg Zolpidem Tartrate (Ambien) 5 mg PO HS PRN PRN Reason: Insomnia Stop: 04/26/19 13:28 General: alert HEENT: PERRLA Neck: Supple, No JVD Lungs: wheezing Cardiovascular: RRR, Normal S1, Normal S2, with murmur Abdomen: soft, thin Extremities: excoriation Neurological: no change - Procedures Procedures: Procedures Procedure Code Date GROUP PSYCHOTHERAPY 45731 03/19/15 GROUP PSYCHOTHERAPY GZHZZZZ 03/19/15 OTHER GROUP THERAPY 94.44 07/28/10 RECREATIONAL THERAPY 93.81 07/28/10 Internal Medicine Assmt/Plan - Assessment Assessment: ASSESSMENT: Increase in agitation, hypertension, chronic obstructive pulmonary disease, gastroesophageal reflux disease, Parkinson, polyneuropathy, anemia, hyperlipidemia, peptic ulcer disease, overactive bladder, major depressive disorder and schizophrenia. - Plan Plan: PLAN: add bronchodilator Continue the patient's home medications, supplemental oxygen as needed and respiratory treatments as needed. Fall precautions were initiated. We will continue to monitor this patient.
[2019-02-27] MEDS: Atorvastatin Calcium 10 MG TAB PO SCH (20:48)
--- NOTE | 2019-02-27 21:37 | Progress Notes ---
DATE: Case was discussed with staff of the patient, reviewed records. Covering for Dr. Trinidad. The patient reports hearing voices, seeing things. Continues to have thoughts of wanting to harm herself. No specific plan. She has a prior suicide attempt by overdose. Continues to have poor insight, unpredictable, impulsive, needing redirection. She has been compliant with the medication with no side effects, no sedation, no nausea, no extrapyramidal symptoms. We will continue the patient in group therapy, milieu therapy, and adjust medications as needed. JOB# [id number]
[2019-02-28] MEDS: Pantoprazole 40 mg EC Tab PO SCH (06:20)
--- NOTE | 2019-02-28 06:55 | Progress Notes ---
DATE: 02/28/2019 SUBJECTIVE: Chart was reviewed and the patient interviewed. Also discussed the patient's condition with the staff and reviewed records and labs. The patient is still in a depressed mood and she is still angry. The patient also is still restless and she is still feeling hopeless and helpless. She also is having difficulty with her mood and still has severe mood swings. Also, trouble sleeping at night. Otherwise, the patient is compliant with taking her medications with no side effects of medications. ASSESSMENT: The patient is still in a depressed mood and still having mood swings and is still easily agitated. TREATMENT PLAN: Continue to monitor behavior and condition closely. Also, we will increase gabapentin to 400 mg 3 times a day and continue to work on irritability and continue to follow up closely. JOB# [id number]
[2019-02-28] MEDS: Albuterol 2 mg/5 mL UDC PO SCH ×4 (08:52→20:49)
[2019-02-28] MEDS: Polyvinyl Alcohol Ophth Soln 15 mL Bottle EACH EYE SCH ×2 (08:53→16:51)
[2019-02-28] MEDS: Multivitamin Tab PO SCH (08:54)
[2019-02-28] MEDS: Aspirin 81mg Chewable Tab PO SCH (08:54)
[2019-02-28] MEDS: Hydrocodone/APAP 5mg/325mg Tab PO PRN (11:08)
--- NOTE | 2019-02-28 12:59 | Internal Medicine Prog Note ---
Internal Medicine Subjective - Subjective Patient seen and examined:: with staff, chart reviewed Patient is:: awake, verbal, interactive, in wheelchair Per staff patient has:: no adverse event, tolerating meds Internal Medicine Objective - Physical Exam Vitals and I&O: Vital Signs Temp 98.2 F 02/28/19 06:45 Pulse 70 02/28/19 08:54 Resp 18 02/28/19 08:00 BP 122/68 02/28/19 08:54 Pulse Ox 98 02/28/19 06:45 Intake & Output 02/27/19 02/28/19 02/28/19 18:59 06:59 18:59 Intake Total 1400 240 Balance 1400 240 Intake: Oral 1400 240 Other: # Voids 5 2 # Bowel Movements 0 0 Active Medications: Current Medications Acetaminophen (Tylenol) 650 mg PO Q4HR PRN PRN Reason: Mild Pain (Scale 1-3) Stop: 04/26/19 13:28 Acetaminophen (Tylenol) 650 mg PO Q4H PRN PRN Reason: TEMP ABOVE 100 Stop: 04/28/19 10:50 Acetaminophen/Hydrocodone Bitart ([place] 5mg/325mg) 1 tab PO Q8H PRN PRN Reason: Pain (Severe 7-10) Stop: 04/26/19 13:23 Last Admin: 02/28/19 11:08 Dose: 1 tab Al Hydrox/Mg Hydrox/Simethicone (Maalox) 30 ml PO Q4HR PRN PRN Reason: GI DISTRESS Stop: 04/26/19 13:28 Albuterol Sulfate (Ventolin) 2 mg PO QID [facility] Stop: 04/27/19 08:59 Last Admin: 02/28/19 08:52 Dose: 2 mg Albuterol Sulfate (Albuterol 2.5mg/3ml Neb Ud) 2.5 mg HHN Q2HRT PRN PRN Reason: Shortness of Breath or Wheeze Stop: 04/27/19 12:33 Last Admin: 02/27/19 11:29 Dose: 2.5 mg Artificial Tears (Artificial Tears Ophth Soln) 1 drop EACH EYE BID [facility] Stop: 04/26/19 16:59 Last Admin: 02/28/19 08:53 Dose: 1 drop Aspirin (Aspirin Chewable) 81 mg PO DAILY [facility] Stop: 04/27/19 08:59 Last Admin: 02/28/19 08:54 Dose: 81 mg Atorvastatin Calcium (Lipitor) 20 mg PO HS [facility]; Protocol Stop: 04/26/19 20:59 Last Admin: 02/27/19 20:48 Dose: 20 mg Brimonidine Tartrate ([place] 0.2% Ophth Soln) 1 drop EACH EYE BID [facility] Stop: 04/26/19 16:59 Last Admin: 02/28/19 08:53 Dose: 1 drop Carbidopa/Levodopa (Sinemet 25mg-100 Mg) 1 tab PO TID [facility] Stop: 04/26/19 13:59 Last Admin: 02/28/19 08:53 Dose: 1 tab Carvedilol (Coreg) 3.125 mg PO BID [facility] Stop: 04/26/19 16:59 Last Admin: 02/28/19 08:54 Dose: 3.125 mg Cholecalciferol (Vitamin D3) 1,000 iu PO DAILY [facility] Stop: 04/27/19 08:59 Last Admin: 02/28/19 08:53 Dose: 1,000 iu Fluoxetine HCl (Prozac) 40 mg PO DAILY [facility]; Protocol Stop: 04/27/19 08:59 Last Admin: 02/28/19 08:53 Dose: 40 mg Furosemide (Lasix) 20 mg PO DAILY [facility] Stop: 04/27/19 08:59 Last Admin: 02/28/19 08:54 Dose: 20 mg Gabapentin (Neurontin) 400 mg PO TID [facility] Stop: 04/29/19 08:59 Last Admin: 02/28/19 08:55 Dose: 400 mg Haloperidol Decanoate (Haldol Dec) 50 mg IM [id number] [facility]; Protocol Stop: 04/26/19 13:29 Last Admin: 02/25/19 14:30 Dose: Not Given Levofloxacin (Levaquin) 500 mg PO DAILY [facility] Stop: 04/27/19 08:59 Last Admin: 02/28/19 08:54 Dose: 500 mg Lisinopril (Zestril) 20 mg PO BID [facility] Stop: 04/26/19 16:59 Last Admin: 02/28/19 08:53 Dose: 20 mg Lorazepam (Ativan) 0.5 mg PO Q4HR PRN; Protocol PRN Reason: Anxiety Stop: 04/26/19 13:23 Last Admin: 02/28/19 09:01 Dose: 0.5 mg Magnesium Hydroxide (Milk Of Magnesia) 30 ml PO HS PRN PRN Reason: Constipation Stop: 04/26/19 13:23 Multivitamins/Vitamin C (Theragran) 1 tab PO DAILY [facility] Stop: 04/27/19 08:59 Last Admin: 02/28/19 08:54 Dose: 1 tab Olanzapine (Zyprexa) 10 mg PO DAILY [facility]; Protocol Stop: 04/27/19 08:59 Last Admin: 02/28/19 08:53 Dose: 10 mg Ondansetron HCl (Zofran Odt) 4 mg PO Q8H PRN PRN Reason: Nausea / Vomiting Stop: 04/26/19 13:26 Oxybutynin Chloride (Ditropan) 5 mg PO TID [facility] Stop: 04/26/19 13:59 Last Admin: 02/28/19 08:53 Dose: 5 mg Pantoprazole Sodium (Protonix) 40 mg PO 0700 [facility] Stop: 04/27/19 06:59 Last Admin: 02/28/19 06:20 Dose: 40 mg Senna (Senna) 8.6 mg PO BID [facility] Stop: 04/26/19 16:59 Last Admin: 02/28/19 08:54 Dose: 8.6 mg Trazodone HCl (Desyrel) 50 mg PO HS [facility]; Protocol Stop: 04/26/19 20:59 Last Admin: 02/27/19 20:48 Dose: 50 mg Zolpidem Tartrate (Ambien) 5 mg PO HS PRN PRN Reason: Insomnia Stop: 04/26/19 13:28 General: alert HEENT: PERRLA Neck: Supple, No JVD Lungs: wheezing Cardiovascular: RRR, Normal S1, Normal S2, with murmur Abdomen: soft, thin Extremities: excoriation Neurological: no change - Procedures Procedures: Procedures Procedure Code Date GROUP PSYCHOTHERAPY 39514 03/19/15 GROUP PSYCHOTHERAPY GZHZZZZ 03/19/15 OTHER GROUP THERAPY 94.44 07/28/10 RECREATIONAL THERAPY 93.81 07/28/10 Internal Medicine Assmt/Plan - Assessment Assessment: ASSESSMENT: Increase in agitation, hypertension, chronic obstructive pulmonary disease, gastroesophageal reflux disease, Parkinson, polyneuropathy, anemia, hyperlipidemia, peptic ulcer disease, overactive bladder, major depressive disorder and schizophrenia. - Plan Plan: PLAN: add bronchodilator Continue the patient's home medications, supplemental oxygen as needed and respiratory treatments as needed. Fall precautions were initiated. We will continue to monitor this patient.
[2019-02-28] MEDS: Atorvastatin Calcium 10 MG TAB PO SCH (20:49)
[2019-03-01] MEDS: Pantoprazole 40 mg EC Tab PO SCH (06:08)
[2019-03-01] MEDS: Albuterol 2 mg/5 mL UDC PO SCH ×4 (08:34→21:13)
[2019-03-01] MEDS: Polyvinyl Alcohol Ophth Soln 15 mL Bottle EACH EYE SCH ×2 (08:34→16:44)
[2019-03-01] MEDS: Aspirin 81mg Chewable Tab PO SCH (08:35)
[2019-03-01] MEDS: Multivitamin Tab PO SCH (08:35)
[2019-03-01] MEDS: Hydrocodone/APAP 5mg/325mg Tab PO PRN (10:15)
--- NOTE | 2019-03-01 14:18 | Internal Medicine Prog Note ---
Internal Medicine Subjective - Subjective Patient seen and examined:: with staff, chart reviewed Patient is:: awake, verbal, interactive, in wheelchair Per staff patient has:: no adverse event, tolerating meds Internal Medicine Objective - Physical Exam Vitals and I&O: Vital Signs Temp 97.1 F 03/01/19 06:55 Pulse 72 03/01/19 08:35 Resp 18 03/01/19 08:00 BP 121/63 03/01/19 08:36 Pulse Ox 99 03/01/19 06:55 Intake & Output 02/28/19 03/01/19 03/01/19 18:59 06:59 18:59 Intake Total 900 240 Balance 900 240 Intake: Oral 900 240 Other: # Voids 3 2 # Bowel Movements 1 0 Active Medications: Current Medications Acetaminophen (Tylenol) 650 mg PO Q4HR PRN PRN Reason: Mild Pain (Scale 1-3) Stop: 04/26/19 13:28 Acetaminophen (Tylenol) 650 mg PO Q4H PRN PRN Reason: TEMP ABOVE 100 Stop: 04/28/19 10:50 Acetaminophen/Hydrocodone Bitart ([place] 5mg/325mg) 1 tab PO Q8H PRN PRN Reason: Pain (Severe 7-10) Stop: 04/26/19 13:23 Last Admin: 03/01/19 10:15 Dose: 1 tab Al Hydrox/Mg Hydrox/Simethicone (Maalox) 30 ml PO Q4HR PRN PRN Reason: GI DISTRESS Stop: 04/26/19 13:28 Albuterol Sulfate (Ventolin) 2 mg PO QID [facility] Stop: 04/27/19 08:59 Last Admin: 03/01/19 13:45 Dose: 2 mg Albuterol Sulfate (Albuterol 2.5mg/3ml Neb Ud) 2.5 mg HHN Q2HRT PRN PRN Reason: Shortness of Breath or Wheeze Stop: 04/27/19 12:33 Last Admin: 02/27/19 11:29 Dose: 2.5 mg Artificial Tears (Artificial Tears Ophth Soln) 1 drop EACH EYE BID [facility] Stop: 04/26/19 16:59 Last Admin: 03/01/19 08:34 Dose: 1 drop Aspirin (Aspirin Chewable) 81 mg PO DAILY [facility] Stop: 04/27/19 08:59 Last Admin: 03/01/19 08:35 Dose: 81 mg Atorvastatin Calcium (Lipitor) 20 mg PO HS [facility]; Protocol Stop: 04/26/19 20:59 Last Admin: 02/28/19 20:49 Dose: 20 mg Brimonidine Tartrate (Alphagan 0.2% Ophth Soln) 1 drop EACH EYE BID [facility] Stop: 04/26/19 16:59 Last Admin: 03/01/19 08:34 Dose: 1 drop Carbidopa/Levodopa (Sinemet 25mg-100 Mg) 1 tab PO TID [facility] Stop: 04/26/19 13:59 Last Admin: 03/01/19 13:44 Dose: 1 tab Carvedilol (Coreg) 3.125 mg PO BID [facility] Stop: 04/26/19 16:59 Last Admin: 03/01/19 08:35 Dose: 3.125 mg Cholecalciferol (Vitamin D3) 1,000 iu PO DAILY [facility] Stop: 04/27/19 08:59 Last Admin: 03/01/19 08:34 Dose: 1,000 iu Fluoxetine HCl (Prozac) 40 mg PO DAILY [facility]; Protocol Stop: 04/27/19 08:59 Last Admin: 03/01/19 08:34 Dose: 40 mg Furosemide (Lasix) 20 mg PO DAILY [facility] Stop: 04/27/19 08:59 Last Admin: 03/01/19 08:36 Dose: 20 mg Gabapentin (Neurontin) 400 mg PO TID [facility] Stop: 04/29/19 08:59 Last Admin: 03/01/19 13:44 Dose: 400 mg Haloperidol Decanoate (Haldol Dec) 50 mg IM [id number] [facility]; Protocol Stop: 04/26/19 13:29 Last Admin: 02/25/19 14:30 Dose: Not Given Levofloxacin (Levaquin) 500 mg PO DAILY [facility] Stop: 04/27/19 08:59 Last Admin: 03/01/19 08:36 Dose: 500 mg Lisinopril (Zestril) 20 mg PO BID [facility] Stop: 04/26/19 16:59 Last Admin: 03/01/19 08:34 Dose: 20 mg Lorazepam (Ativan) 0.5 mg PO Q4HR PRN; Protocol PRN Reason: Anxiety Stop: 04/26/19 13:23 Last Admin: 02/28/19 09:01 Dose: 0.5 mg Magnesium Hydroxide (Milk Of Magnesia) 30 ml PO HS PRN PRN Reason: Constipation Stop: 04/26/19 13:23 Multivitamins/Vitamin C (Theragran) 1 tab PO DAILY [facility] Stop: 04/27/19 08:59 Last Admin: 03/01/19 08:35 Dose: 1 tab Olanzapine (Zyprexa) 10 mg PO DAILY [facility]; Protocol Stop: 04/27/19 08:59 Last Admin: 03/01/19 08:34 Dose: 10 mg Ondansetron HCl (Zofran Odt) 4 mg PO Q8H PRN PRN Reason: Nausea / Vomiting Stop: 04/26/19 13:26 Oxybutynin Chloride (Ditropan) 5 mg PO TID [facility] Stop: 04/26/19 13:59 Last Admin: 03/01/19 13:45 Dose: 5 mg Pantoprazole Sodium (Protonix) 40 mg PO 0700 [facility] Stop: 04/27/19 06:59 Last Admin: 03/01/19 06:08 Dose: 40 mg Senna (Senna) 8.6 mg PO BID [facility] Stop: 04/26/19 16:59 Last Admin: 03/01/19 08:35 Dose: 8.6 mg Trazodone HCl (Desyrel) 50 mg PO HS [facility]; Protocol Stop: 04/26/19 20:59 Last Admin: 02/28/19 20:50 Dose: 50 mg Zolpidem Tartrate (Ambien) 5 mg PO HS PRN PRN Reason: Insomnia Stop: 04/26/19 13:28 General: alert HEENT: PERRLA Neck: Supple, No JVD Lungs: wheezing Cardiovascular: RRR, Normal S1, Normal S2, with murmur Abdomen: soft, thin Extremities: excoriation Neurological: no change - Procedures Procedures: Procedures Procedure Code Date GROUP PSYCHOTHERAPY 62384 03/19/15 GROUP PSYCHOTHERAPY GZHZZZZ 03/19/15 OTHER GROUP THERAPY 94.44 07/28/10 RECREATIONAL THERAPY 93.81 07/28/10 Internal Medicine Assmt/Plan - Assessment Assessment: ASSESSMENT: Increase in agitation, hypertension, chronic obstructive pulmonary disease, gastroesophageal reflux disease, Parkinson, polyneuropathy, anemia, hyperlipidemia, peptic ulcer disease, overactive bladder, major depressive disorder and schizophrenia. - Plan Plan: PLAN: add bronchodilator Continue the patient's home medications, supplemental oxygen as needed and respiratory treatments as needed. Fall precautions were initiated. We will continue to monitor this patient. Nutritional Asmnt/Malnutr-PDOC - Dietary Evaluation Malnutrition Findings (Please click <Entered> for more info): Nutritional Asmnt/Malnutrition Start: 03/01/19 11: 05 Text: Status: Complete Freq: Protocol: Document 03/01/19 11:05 MARY KAYSARITHA (Rec: 03/01/19 11:19 MARY KAYSARITHA [email or web address]) Nutritional Asmnt/Malnutrition Patient General Information Nutritional Screening Moderate Risk Diagnosis Psychosis Pertinent Medical Hx/Surgical Hx HTN, COPD, GERD, Parkinsons, Polyneuropathy, Anemia, Hyperlipidemia, PUD, Overactive Bladder, Major Depressive Disorder Subjective Information Pt is a 68-year-old female admitted on 02/25 d/t increased agitation at nursing facility . Pt is eating an estimated 100% of meals x3 days Per Meal /Nutrition Activity Record. Dietary is currently providing an estimated 2400 kcals and 120 gm Pro to meet 100+% kcal and 100+% Pro needs. Anthropometrics HT: 54 WT: 158 LB (71.82 kg) BMI: 27.12 (Overweight) GI/ Skin Integrity GI: Round, Non-tender BM: Not Noted I/O: 1140/Not Noted Skin: WNL, Intact Shahid: 18 Diet Order: Cardiac, Chopped Estimated Energy Needs: ( Geriatric, CBW) 5317-5481 kcals (25-30 kcals/ kg) 70-85g Pro (1.0-1.2 g/kg) 9226-9519 ml (25-30 ml/kg) Current Diet Order/ Nutrition Support Cardiac, Chopped Pertinent Medications Maalox (PRN), Albuterol (PRN), Lipitor, Coreg, Vitamin D3, Lasix, MOM (PRN), Theragran, Zofran Odt (PRN), Protonix, Senna Pertinent Labs 02/25: A1c 5.8%, HDL 33, Glucose 105 Nutritional Hx/Data Height 1.63 m Height (Calculated Centimeters) 162.6 Current Weight (lbs) 71.668 kg Weight (Calculated Kilograms) 71.7 Weight (Calculated Grams) 13121.6 [place] Body Weight 120 LB (54.55 kg) % [place] Body Weight 132 Body Mass Index (BMI) 27.1 Weight Status Overweight GI Symptoms Last BM Not Noted Skin Integrity/Comment: Skin: WNL, Intact Shahid: 18 Current %PO Good (75-100%) Estimated Nutritional Goals BEE in Kcals: Using Current wt Calories/Kcals/Kg 25-30 Kcals Calculated 5509-6034 Protein: Using Current wt Protein g/k.0-1.2 Protein Calculated 70-85 Fluid: ml 2995-0529 ml (25-30 ml/kg) Nutritional Problem 1. Problem Problem No nutrition diagnosis at this time. Etiology N/A Signs/Symptoms: N/A Malnutrition Related to Morbid Obesity Malnutrition related to morbid obesity No Intervention/Recommendation Comments Continue Cardiac, chopped diet as tolerated. Expected Outcomes/Goals Expected Outcomes/Goals 1. PO intake to continue to meet >75% of estimated nutritional needs. 2. Monitor PO intake, wt, nutrition related labs, and skin integrity. 3. F/U as low risk in 7-10 days, 03/08-03/11
[2019-03-01] MEDS: Atorvastatin Calcium 10 MG TAB PO SCH (21:13)
[2019-03-02] MEDS: Pantoprazole 40 mg EC Tab PO SCH (06:38)
[2019-03-02] MEDS: Polyvinyl Alcohol Ophth Soln 15 mL Bottle EACH EYE SCH ×2 (08:47→16:37)
[2019-03-02] MEDS: Albuterol 2 mg/5 mL UDC PO SCH ×3 (08:47→16:37)
[2019-03-02] MEDS: Multivitamin Tab PO SCH (08:48)
[2019-03-02] MEDS: Aspirin 81mg Chewable Tab PO SCH (08:49)
--- NOTE | 2019-03-02 13:09 | Internal Medicine Prog Note ---
Internal Medicine Subjective - Subjective Patient seen and examined:: with staff, chart reviewed Patient is:: awake, verbal, interactive, in wheelchair Per staff patient has:: no adverse event, tolerating meds Internal Medicine Objective - Physical Exam Vitals and I&O: Vital Signs Temp 98.2 F 03/02/19 06:46 Pulse 65 03/02/19 08:50 Resp 19 03/02/19 07:28 BP 123/73 03/02/19 08:50 Pulse Ox 95 03/02/19 06:46 Intake & Output 03/01/19 03/02/19 03/02/19 18:59 06:59 18:59 Intake Total 1200 240 Balance 1200 240 Intake: Oral 1200 240 Other: # Voids 2 # Bowel Movements 1 0 Active Medications: Current Medications Acetaminophen (Tylenol) 650 mg PO Q4HR PRN PRN Reason: Mild Pain (Scale 1-3) Stop: 04/26/19 13:28 Acetaminophen (Tylenol) 650 mg PO Q4H PRN PRN Reason: TEMP ABOVE 100 Stop: 04/28/19 10:50 Acetaminophen/Hydrocodone Bitart ([place] 5mg/325mg) 1 tab PO Q8H PRN PRN Reason: Pain (Severe 7-10) Stop: 04/26/19 13:23 Last Admin: 03/01/19 10:15 Dose: 1 tab Al Hydrox/Mg Hydrox/Simethicone (Maalox) 30 ml PO Q4HR PRN PRN Reason: GI DISTRESS Stop: 04/26/19 13:28 Albuterol Sulfate (Ventolin) 2 mg PO QID [facility] Stop: 04/27/19 08:59 Last Admin: 03/02/19 08:47 Dose: 2 mg Albuterol Sulfate (Albuterol 2.5mg/3ml Neb Ud) 2.5 mg HHN Q2HRT PRN PRN Reason: Shortness of Breath or Wheeze Stop: 04/27/19 12:33 Last Admin: 02/27/19 11:29 Dose: 2.5 mg Artificial Tears (Artificial Tears Ophth Soln) 1 drop EACH EYE BID [facility] Stop: 04/26/19 16:59 Last Admin: 03/02/19 08:47 Dose: 1 drop Aspirin (Aspirin Chewable) 81 mg PO DAILY [facility] Stop: 04/27/19 08:59 Last Admin: 03/02/19 08:49 Dose: 81 mg Atorvastatin Calcium (Lipitor) 20 mg PO HS [facility]; Protocol Stop: 04/26/19 20:59 Last Admin: 03/01/19 21:13 Dose: 20 mg Brimonidine Tartrate (Alphagan 0.2% Ophth Soln) 1 drop EACH EYE BID [facility] Stop: 04/26/19 16:59 Last Admin: 03/02/19 08:47 Dose: 1 drop Carbidopa/Levodopa (Sinemet 25mg-100 Mg) 1 tab PO TID [facility] Stop: 04/26/19 13:59 Last Admin: 03/02/19 08:50 Dose: 1 tab Carvedilol (Coreg) 3.125 mg PO BID [facility] Stop: 04/26/19 16:59 Last Admin: 03/02/19 08:50 Dose: 3.125 mg Cholecalciferol (Vitamin D3) 1,000 iu PO DAILY [facility] Stop: 04/27/19 08:59 Last Admin: 03/02/19 08:48 Dose: 1,000 iu Fluoxetine HCl (Prozac) 40 mg PO DAILY [facility]; Protocol Stop: 04/27/19 08:59 Last Admin: 03/02/19 08:47 Dose: 40 mg Furosemide (Lasix) 20 mg PO DAILY [facility] Stop: 04/27/19 08:59 Last Admin: 03/02/19 08:49 Dose: 20 mg Gabapentin (Neurontin) 400 mg PO TID [facility] Stop: 04/29/19 08:59 Last Admin: 03/02/19 08:49 Dose: 400 mg Haloperidol Decanoate (Haldol Dec) 50 mg IM [id number] [facility]; Protocol Stop: 04/26/19 13:29 Last Admin: 02/25/19 14:30 Dose: Not Given Levofloxacin (Levaquin) 500 mg PO DAILY [facility] Stop: 04/27/19 08:59 Last Admin: 03/02/19 08:48 Dose: 500 mg Lisinopril (Zestril) 20 mg PO BID [facility] Stop: 04/26/19 16:59 Last Admin: 03/02/19 08:50 Dose: 20 mg Lorazepam (Ativan) 0.5 mg PO Q4HR PRN; Protocol PRN Reason: Anxiety Stop: 04/26/19 13:23 Last Admin: 03/02/19 10:51 Dose: 0.5 mg Magnesium Hydroxide (Milk Of Magnesia) 30 ml PO HS PRN PRN Reason: Constipation Stop: 04/26/19 13:23 Multivitamins/Vitamin C (Theragran) 1 tab PO DAILY [facility] Stop: 04/27/19 08:59 Last Admin: 03/02/19 08:48 Dose: 1 tab Olanzapine (Zyprexa) 10 mg PO DAILY [facility]; Protocol Stop: 04/27/19 08:59 Last Admin: 03/02/19 08:48 Dose: 10 mg Ondansetron HCl (Zofran Odt) 4 mg PO Q8H PRN PRN Reason: Nausea / Vomiting Stop: 04/26/19 13:26 Oxybutynin Chloride (Ditropan) 5 mg PO TID [facility] Stop: 04/26/19 13:59 Last Admin: 03/02/19 08:48 Dose: 5 mg Pantoprazole Sodium (Protonix) 40 mg PO 0700 [facility] Stop: 04/27/19 06:59 Last Admin: 03/02/19 06:38 Dose: 40 mg Senna (Senna) 8.6 mg PO BID [facility] Stop: 04/26/19 16:59 Last Admin: 03/02/19 08:48 Dose: 8.6 mg Trazodone HCl (Desyrel) 50 mg PO HS [facility]; Protocol Stop: 04/26/19 20:59 Last Admin: 03/01/19 21:13 Dose: 50 mg Zolpidem Tartrate (Ambien) 5 mg PO HS PRN PRN Reason: Insomnia Stop: 04/26/19 13:28 General: alert HEENT: PERRLA Neck: Supple, No JVD Lungs: wheezing Cardiovascular: RRR, Normal S1, Normal S2, with murmur Abdomen: soft, thin Extremities: excoriation Neurological: no change - Procedures Procedures: Procedures Procedure Code Date GROUP PSYCHOTHERAPY 93779 03/19/15 GROUP PSYCHOTHERAPY GZHZZZZ 03/19/15 OTHER GROUP THERAPY 94.44 07/28/10 RECREATIONAL THERAPY 93.81 07/28/10 Internal Medicine Assmt/Plan - Assessment Assessment: ASSESSMENT: Increase in agitation, hypertension, chronic obstructive pulmonary disease, gastroesophageal reflux disease, Parkinson, polyneuropathy, anemia, hyperlipidemia, peptic ulcer disease, overactive bladder, major depressive disorder and schizophrenia. - Plan Plan: PLAN: add bronchodilator Continue the patient's home medications, supplemental oxygen as needed and respiratory treatments as needed. Fall precautions were initiated. We will continue to monitor this patient. Nutritional Asmnt/Malnutr-PDOC - Dietary Evaluation Malnutrition Findings (Please click <Entered> for more info): Nutritional Asmnt/Malnutrition Start: 03/01/19 11: 05 Text: Status: Complete Freq: Protocol: Document 03/01/19 11:05 MARY KAYSARITHA (Rec: 03/01/19 11:19 MARY KAYSARITHA [email or web address]) Nutritional Asmnt/Malnutrition Patient General Information Nutritional Screening Moderate Risk Diagnosis Psychosis Pertinent Medical Hx/Surgical Hx HTN, COPD, GERD, Parkinsons, Polyneuropathy, Anemia, Hyperlipidemia, PUD, Overactive Bladder, Major Depressive Disorder Subjective Information Pt is a 68-year-old female admitted on 02/25 d/t increased agitation at nursing facility . Pt is eating an estimated 100% of meals x3 days Per Meal /Nutrition Activity Record. Dietary is currently providing an estimated 2400 kcals and 120 gm Pro to meet 100+% kcal and 100+% Pro needs. Anthropometrics HT: 54 WT: 158 LB (71.82 kg) BMI: 27.12 (Overweight) GI/ Skin Integrity GI: Round, Non-tender BM: Not Noted I/O: 1140/Not Noted Skin: WNL, Intact Shahid: 18 Diet Order: Cardiac, Chopped Estimated Energy Needs: ( Geriatric, CBW) 8857-1865 kcals (25-30 kcals/ kg) 70-85g Pro (1.0-1.2 g/kg) 4907-0559 ml (25-30 ml/kg) Current Diet Order/ Nutrition Support Cardiac, Chopped Pertinent Medications Maalox (PRN), Albuterol (PRN), Lipitor, Coreg, Vitamin D3, Lasix, MOM (PRN), Theragran, Zofran Odt (PRN), Protonix, Senna Pertinent Labs 02/25: A1c 5.8%, HDL 33, Glucose 105 Nutritional Hx/Data Height 1.63 m Height (Calculated Centimeters) 162.6 Current Weight (lbs) 71.668 kg Weight (Calculated Kilograms) 71.7 Weight (Calculated Grams) 26928.6 [place] Body Weight 120 LB (54.55 kg) % [place] Body Weight 132 Body Mass Index (BMI) 27.1 Weight Status Overweight GI Symptoms Last BM Not Noted Skin Integrity/Comment: Skin: WNL, Intact Shahid: 18 Current %PO Good (75-100%) Estimated Nutritional Goals BEE in Kcals: Using Current wt Calories/Kcals/Kg 25-30 Kcals Calculated 3209-1304 Protein: Using Current wt Protein g/k.0-1.2 Protein Calculated 70-85 Fluid: ml 8727-9205 ml (25-30 ml/kg) Nutritional Problem 1. Problem Problem No nutrition diagnosis at this time. Etiology N/A Signs/Symptoms: N/A Malnutrition Related to Morbid Obesity Malnutrition related to morbid obesity No Intervention/Recommendation Comments Continue Cardiac, chopped diet as tolerated. Expected Outcomes/Goals Expected Outcomes/Goals 1. PO intake to continue to meet >75% of estimated nutritional needs. 2. Monitor PO intake, wt, nutrition related labs, and skin integrity. 3. F/U as low risk in 7-10 days, 03/08-03/11
== END 2019-03-02 17:09 | DRG 885 ==
LOC: GERO 13:00
PROVIDERS: ADMIT Psychiatry & Neurology Psychiatry; ATTEND Psychiatry & Neurology Psychiatry
DX: F33.3 Major depressive disorder, recurrent, severe with psychotic symptoms (principal); J44.9 Chronic obstructive pulmonary disease, unspecified; K21.9 Gastro-esophageal reflux disease without esophagitis; D64.9 Anemia, unspecified; G62.9 Polyneuropathy, unspecified; I10 Essential (primary) hypertension; G20 Parkinson's disease; E78.5 Hyperlipidemia, unspecified; K27.9 Peptic ulcer, site unspecified, unspecified as acute or chronic, without hemorrhage or perforation; N32.81 Overactive bladder
CPT/HCPCS: 83036-90; J7613; Z7610